=== PATIENT | male | born 1945 | race Caucasian/White ===

== ENCOUNTER → 2018-04-21 12:32 | Outpatient (CLI) | payer MEDICARE, SELFPAY ==
[2018-04-21 13:52] LABS: PSA,Total- Diagnostic 5.04 ng/mL (0.0-4.0)
== END ==
PROVIDERS: Family Provider Internal Medicine; PCP Internal Medicine; Visit Provider Urology
DX: R97.20 Elevated prostate specific antigen [PSA] (principal)
CPT/HCPCS: 36415; 84153

== ENCOUNTER → 2018-07-28 09:36 | Outpatient (CLI) | payer MEDICARE, SELFPAY ==
[2018-07-28 11:26] LABS: PSA,Total- Diagnostic 5.53 ng/mL (0.0-4.0)
== END ==
PROVIDERS: Family Provider Internal Medicine; PCP Internal Medicine; Visit Provider Urology
DX: R97.20 Elevated prostate specific antigen [PSA] (principal)
CPT/HCPCS: 36415; 84153

== ENCOUNTER → 2018-10-25 10:19 | Outpatient (CLI) | payer MEDICARE, SELFPAY ==
[2017-04-26 09:27] VITALS: BMI 27.2
[2018-10-25 11:28] LABS: PSA,Total- Diagnostic 6.73 ng/mL (0.0-4.0)
--- OUTSIDE RECORDS SUMMARY | 2018-12-07 01:27 | XMS RPT_ITS ---
:1945 Author Organization OHIP Care Team Providers Name Role Phone JUANITO WORLEY Referring Unavailable JUANITO WORLEY Attending Unavailable BRUNILDA, JUANITO Silverio Referring Unavailable WORLEYJUANITO HANNON Referring Unavailable JUANITO WORLEY Attending Unavailable BRUNILDA, JUANITO Silverio Referring Unavailable WORLEY, JUANITO Silverio Referring Unavailable WILD DIAL Attending Unavailable JUANITO WORLEY Referring Unavailable ADÁN REDDY Attending Unavailable JUANITO WORLEY Referring Unavailable TerranceErich Attending Unavailable Juanito Worley Primary Care Unavailable TerranceErich Referring Unavailable Terrance, Erich Song Attending Unavailable TerranceErich Referring Unavailable Juanito Worley Primary Care Unavailable Zoraida Montana Attending Unavailable Juanito Worley Primary Care Unavailable Zoraida Montana Referring Unavailable PROBLEMS PROBLEMS DATE TYPE CONDITION / CODE ATTENDING STATUS SOURCE 06/30/2017 Active Unilateral NA Active [facility] primary [place] osteoarthritis, Repository right hip / M16.11(ICD-10) 11/07/2009 Active Hyperlipidemia, NA Active [facility] unspecified / [place] E78.5(ICD-10) Repository 04/22/2018 Unknown R97.20 - Elevated Erich Carlos Active [place] prostate specific [facility] Community antigen [PSA] / Hospital R97.20(ICD-10) Repository 06/30/2017 Active Impaired fasting NA Active [facility] glucose / [facility] [place] R73.01(ICD-10) Repository 12/21/2016 Active Elevated prostate NA Active [facility] specific antigen [facility] (PSA) / Repository R97.20(ICD-10) PROCEDURES PROCEDURES No Procedure Records FoundRESULTS RESULTS PSA,TOTAL- DIAGNOSTIC Collected: 10/25/2018 Status: F Source: [place] 10:24 AM [facility] REPOSITORY TYPE CODE TESTS RESULT OUT OF REFERENCE UNITS RANGE LAB [id number] 0.0-4.0 ng/mL PSA, High DIAGNOSTIC 6.73 Result Comment: This test was performed using the TPSA assay method for the [employer] chemistry system. Values obtained with different assay methods cannot be used interchangably. When changing PSA assays in the course of monitoring a patient, additional sequential testing should be carried out to confirm baseline values. Performed By: #### [id number] #### [facility] [address] [place], [address] PROGRESS Observed: 10/04/2018 Status: COMPLETED Source: [place] 9:34 AM [facility] REPOSITORY HNO ID: [id number] Author: Lexie Cardozo Service: (none) Author Type: Nurse Practitioner Type: Progress Notes Filed: 10/04/2018 10:11 AM Note Text: Subjective The history is provided by the patient. No kiln door repairer was used. HPI Aly Lemons is a 73 year old male who presents today for CC of cough, sore throat, and chest congestion Onset/Duration: One week Alleviating/Treatment: aleve Aggravating: Lying down Risk factors: Family BP 140/80 Pulse 73 Temp 36.8 ?C (98.2 ?F) (Tympanic) Resp 14 Wt 86 kg (189 lb 9.6 oz) SpO2 98% BMI 27.33 kg/m? ALLERGIES No Known Allergies ACTIVE PROBLEM LIST Hyperlipidemia Actinic Keratoses Bph With Urinary Obstruction Bcc (Basal Cell Carcinoma of Skin) Elevated Prostate Specific Antigen (Psa) Impaired Fasting Blood Sugar Nocturnal Leg Cramps Primary Osteoarthritis of Right Hip Essential Hypertension Left Inguinal Hernia Family History Problem Relation Age of Onset - Cancer Father throat - Breast Cancer Mother - Stroke Maternal Grandmother - Colon Cancer No Family History - Prostate Cancer No Family History - other (pulmonary fibrosis [Other]) Mother Smoker - Diabetes Mother - Stroke Paternal Grandmother Social History Marital status: Spouse name: Years of education: Number of children: 0 Occupational History 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 PAST MEDICAL HISTORY Diagnosis Date - Actinic keratoses 11/07/2009 Mohs' surgery left temporal 2008 Nose prior to that - BCC (basal cell carcinoma of skin) 10/24/2012 [facility]. - Bladder cancer (HCC) - BPH with urinary obstruction 11/07/2009 - Essential hypertension 10/20/2017 - Headache(784.0) - Hemorrhoid - Hyperlipidemia 11/07/2009 Review of Systems Constitutional: Negative. Negative for chills, fever and malaise/fatigue. HENT: Positive for congestion and sore throat. Negative for ear pain and sinus pain. Respiratory: Positive for cough and wheezing. Negative for sputum production and shortness of breath. Cardiovascular: Negative for chest pain. Musculoskeletal: Negative for myalgias. Skin: Negative for rash. Neurological: Negative for headaches. Objective Physical Exam Constitutional: He is well-developed, well-nourished, and in no distress. HENT: Head: Normocephalic and atraumatic. Right Ear: Tympanic membrane, external ear and ear canal normal. Tympanic membrane is not injected, not erythematous, not retracted and not bulging. No middle ear effusion. Left Ear: Tympanic membrane, external ear and ear canal normal. Tympanic membrane is not injected, not erythematous, not retracted and not bulging. No middle ear effusion. Nose: Mucosal edema and rhinorrhea present. Right sinus exhibits no maxillary sinus tenderness and no frontal sinus tenderness. Left sinus exhibits no maxillary sinus tenderness and no frontal sinus tenderness. Mouth/Throat: Uvula is midline and mucous membranes are normal. Posterior oropharyngeal erythema (mild streaking, thick post nasal drainage) present. No oropharyngeal exudate, posterior oropharyngeal edema or tonsillar abscesses. Eyes: Pupils are equal, round, and reactive to light. Conjunctivae and EOM are normal. Neck: Normal range of motion. Cardiovascular: Normal rate, regular rhythm and normal heart sounds. Pulmonary/Chest: Effort normal. No respiratory distress. He has no decreased breath sounds. He has wheezes (scattered occasional). He has no rhonchi. He has no rales. A dry cough was noted during this encounter. Talking in full sentences. Handling secretions without drooling. Lips and nailbeds are pink without cyanosis. Lymphadenopathy: Head (right side): No submental, no submandibular, no tonsillar, no preauricular and no posterior auricular adenopathy present. Head (left side): No submental, no submandibular, no tonsillar, no preauricular and no posterior auricular adenopathy present. He has no cervical adenopathy. Right cervical: No posterior cervical adenopathy present. Left cervical: No posterior cervical adenopathy present. Right: No supraclavicular adenopathy present. Left: No supraclavicular adenopathy present. Skin: Skin is warm and dry. Psychiatric: Affect normal. Nursing note and vitals reviewed. ASSESSMENT/PLAN: 1. URI with cough and congestion - ICD9: 465.9, ICD10: J06.9 - Discussed viral etiology and rationale for treatment. Rest, oral fluids, tylenol or aleve as needed for pain or fever Tessalon Perles as prescribed for coughing, do not combine this with other cough and cold medications Prednisone for airway congestion/wheezing/coughing Salt water gargles, chloraseptic spray or lozenges as needed for sore throat. Drink at least 8 glasses of fluids per day that aren't caffeinated. Use a humidifier in your room at night Tylenol (generic acetaminophen) 500 mg-2 tabs every 8 hrs. as needed for fever and aches -Sudafed (generic is fine), behind the counter, 2x30 mg tabs twice daily as needed for congestion -Mucinex (generic is fine) 1200 mg twice daily to help with cough and to thin out mucus -http://www.choosingwisely.org/patient-resources/antibiotics/. This link shares information about when antibiotics may help and when they may not. - Discussed use of Prednisone 5 day course as needed for cough, wheeze, shortness of breath * Prednisone 40 mg (2 tablets) per day for 5 days, take in morning or early in day * Do not NSAIDs during this 5 day course (ibuprofen, naproxen, Motrin, Aleve, Advil) Tylenol only during prednisone use * Follow up with primary care provider if no improvement with treatmen * Seek medical care immediately, call 911, go to ER if you have chest pain, difficulty breathing, shortness of breath, inability to swallow. - PREDNISONE 20 MG TABLET - BENZONATATE 200 MG CAPSULE - GUAIFENESIN ER 600 MG TABLET, EXTENDED RELEASE 12 HR Diagnosis and treatment plan were discussed and questions were answered to the patient's satisfaction. Pt acknowledged understanding of concepts and follow up plan. Specific signs and symptoms that would indicate the need for higher level of care were discussed in detail warranting prompt ER evaluation. Lexie Cardozo APRN.CNP CNOV Observed: 10/04/2018 Status: COMPLETED Source: [place] 9:30 AM [facility] REPOSITORY Office Visit ([facility]) VESTAALY CESAR ([id number]) 1945 M Date Time Provider Department 10/04/18 9:30 AM [facility] During your visit today, we recorded the following information about you: Temperature Pulse Respiration Blood pressure 98.2 degrees 73/minute 14/minute 140/80 Weight 86 kg Lexie Cardozo APRN.CNP 10/04/2018 10:11 AM Signed Subjective The history is provided by the patient. No kiln door repairer was used. HPI Aly Lemons is a 73 year old male who presents today for CC of cough, sore throat, and chest congestion Onset/Duration: One week Alleviating/Treatment: aleve Aggravating: Lying down Risk factors: Family BP 140/80 Pulse 73 Temp 36.8 ?C (98.2 ?F) (Tympanic) Resp 14 Wt 86 kg (189 lb 9.6 oz) SpO2 98% BMI 27.33 kg/m? ALLERGIES No Known Allergies ACTIVE PROBLEM LIST Hyperlipidemia Actinic Keratoses Bph With Urinary Obstruction Bcc (Basal Cell Carcinoma of Skin) Elevated Prostate Specific Antigen (Psa) Impaired Fasting Blood Sugar Nocturnal Leg Cramps Primary Osteoarthritis of Right Hip Essential Hypertension Left Inguinal Hernia Family History Problem Relation Age of Onset - Cancer Father throat - Breast Cancer Mother - Stroke Maternal Grandmother - Colon Cancer No Family History - Prostate Cancer No Family History - other (pulmonary fibrosis [Other]) Mother Smoker - Diabetes Mother - Stroke Paternal Grandmother Social History Marital status: Spouse name: Years of education: Number of children: 0 Occupational History 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 PAST MEDICAL HISTORY Diagnosis Date - Actinic keratoses 11/07/2009 Mohs' surgery left temporal 2009 Nose prior to that - BCC (basal cell carcinoma of skin) 10/24/2012 [facility]. - Bladder cancer (HCC) - BPH with urinary obstruction 11/07/2009 - Essential hypertension 10/20/2017 - Headache(784.0) - Hemorrhoid - Hyperlipidemia 11/07/2009 Review of Systems Constitutional: Negative. Negative for chills, fever and malaise/fatigue. HENT: Positive for congestion and sore throat. Negative for ear pain and sinus pain. Respiratory: Positive for cough and wheezing. Negative for sputum production and shortness of breath. Cardiovascular: Negative for chest pain. Musculoskeletal: Negative for myalgias. Skin: Negative for rash. Neurological: Negative for headaches. Objective Physical Exam Constitutional: He is well-developed, well-nourished, and in no distress. HENT: Head: Normocephalic and atraumatic. Right Ear: Tympanic membrane, external ear and ear canal normal. Tympanic membrane is not injected, not erythematous, not retracted and not bulging. No middle ear effusion. Left Ear: Tympanic membrane, external ear and ear canal normal. Tympanic membrane is not injected, not erythematous, not retracted and not bulging. No middle ear effusion. Nose: Mucosal edema and rhinorrhea present. Right sinus exhibits no maxillary sinus tenderness and no frontal sinus tenderness. Left sinus exhibits no maxillary sinus tenderness and no frontal sinus tenderness. Mouth/Throat: Uvula is midline and mucous membranes are normal. Posterior oropharyngeal erythema (mild streaking, thick post nasal drainage) present. No oropharyngeal exudate, posterior oropharyngeal edema or tonsillar abscesses. Eyes: Pupils are equal, round, and reactive to light. Conjunctivae and EOM are normal. Neck: Normal range of motion. Cardiovascular: Normal rate, regular rhythm and normal heart sounds. Pulmonary/Chest: Effort normal. No respiratory distress. He has no decreased breath sounds. He has wheezes (scattered occasional). He has no rhonchi. He has no rales. A dry cough was noted during this encounter. Talking in full sentences. Handling secretions without drooling. Lips and nailbeds are pink without cyanosis. Lymphadenopathy: Head (right side): No submental, no submandibular, no tonsillar, no preauricular and no posterior auricular adenopathy present. Head (left side): No submental, no submandibular, no tonsillar, no preauricular and no posterior auricular adenopathy present. He has no cervical adenopathy. Right cervical: No posterior cervical adenopathy present. Left cervical: No posterior cervical adenopathy present. Right: No supraclavicular adenopathy present. Left: No supraclavicular adenopathy present. Skin: Skin is warm and dry. Psychiatric: Affect normal. Nursing note and vitals reviewed. ASSESSMENT/PLAN: 1. URI with cough and congestion - ICD9: 465.9, ICD10: J06.9 - Discussed viral etiology and rationale for treatment. Rest, oral fluids, tylenol or aleve as needed for pain or fever Milenaon Perlmonica as prescribed for coughing, do not combine this with other cough and cold medications Prednisone for airway congestion/wheezing/coughing Salt water gargles, chloraseptic spray or lozenges as needed for sore throat. Drink at least 8 glasses of fluids per day that aren't caffeinated. Use a humidifier in your room at night Tylenol (generic acetaminophen) 500 mg-2 tabs every 8 hrs. as needed for fever and aches -Sudafed (generic is fine), behind the counter, 2x30 mg tabs twice daily as needed for congestion -Mucinex (generic is fine) 1200 mg twice daily to help with cough and to thin out mucus -http://www.Movinaryly.org/patient-resources/antibiotics/. This link shares information about when antibiotics may help and when they may not. - Discussed use of Prednisone 5 day course as needed for cough, wheeze, shortness of breath * Prednisone 40 mg (2 tablets) per day for 5 days, take in morning or early in day * Do not NSAIDs during this 5 day course (ibuprofen, naproxen, Motrin, Aleve, Advil) Tylenol only during prednisone use * Follow up with primary care provider if no improvement with treatmen * Seek medical care immediately, call 911, go to ER if you have chest pain, difficulty breathing, shortness of breath, inability to swallow. - PREDNISONE 20 MG TABLET - BENZONATATE 200 MG CAPSULE - GUAIFENESIN ER 600 MG TABLET, EXTENDED RELEASE 12 HR Diagnosis and treatment plan were discussed and questions were answered to the patient's satisfaction. Pt acknowledged understanding of concepts and follow up plan. Specific signs and symptoms that would indicate the need for higher level of care were discussed in detail warranting prompt ER evaluation. KELSI Mandujano APRN.CNP 10/04/2018 9:48 AM Signed ASSESSMENT/PLAN: 1. URI with cough and congestion - ICD9: 465.9, ICD10: J06.9 - Discussed viral etiology and rationale for treatment. Rest, oral fluids, tylenol or aleve as needed for pain or fever Tessalon Perles as prescribed for coughing, do not combine this with other cough and cold medications Prednisone for airway congestion/wheezing/coughing Salt water gargles, chloraseptic spray or lozenges as needed for sore throat. Drink at least 8 glasses of fluids per day that aren't caffeinated. Use a humidifier in your room at night Tylenol (generic acetaminophen) 500 mg-2 tabs every 8 hrs. as needed for fever and aches -Sudafed (generic is fine), behind the counter, 2x30 mg tabs twice daily as needed for congestion -Mucinex (generic is fine) 1200 mg twice daily to help with cough and to thin out mucus -http://www.Mov[employer].org/patient-resources/antibiotics/. This link shares information about when antibiotics may help and when they may not. - Discussed use of Prednisone 5 day course as needed for cough, wheeze, shortness of breath * Prednisone 40 mg (2 tablets) per day for 5 days, take in morning or early in day * Do not NSAIDs during this 5 day course (ibuprofen, naproxen, Motrin, Aleve, Advil) Tylenol only during prednisone use * Follow up with primary care provider if no improvement with treatmen * Seek medical care immediately, call 911, go to ER if you have chest pain, difficulty breathing, shortness of breath, inability to swallow. - PREDNISONE 20 MG TABLET - BENZONATATE 200 MG CAPSULE - GUAIFENESIN ER 600 MG TABLET, EXTENDED RELEASE 12 HR Referring Provider: SELF [200] Allergies As of Date: 10/04/2018 (No Known Allergies) Date Reviewed: 10/04/2018 Reviewed by: Lexie ([facility]) Cas - Fully Assessed Reason for Visit: Cough [28] Cmt: x1 wk Chest Congestion [236] Cmt: x1 wk Sore Throat [200] Cmt: x1 wk; getting a little better Primary Visit Diagnosis:URI with cough and congestion [J06.9] Order(s):predniSONE (DELTASONE) 20 mg tabletTake 2 tablets by mouth once daily for 3 days.Disp: 6 tabletRfl: 0 Benzonatate 200 mg capsuleTake 1 capsule by mouth three times daily as needed.Disp: 30 capsuleRfl: 0 guaiFENesin (MUCINEX) 600 mg 12 hr tabletTake 2 tablets by mouth twice daily.Disp: 24 tabletRfl: 0 Prescriptions as of 10/04/2018 Sig: LOW-DOSE ASPIRIN ORAL Take 1 tablet by mouth once d* ATORVASTATIN 40 MG TABLET Take 1 tablet by mouth daily * AMLODIPINE 5 MG TABLET Take 1 tablet by mouth once d* NAPROXEN SODIUM 220 MG CAPSULE Take by mouth. PREDNISONE 20 MG TABLET Take 2 tablets by mouth once * BENZONATATE 200 MG CAPSULE Take 1 capsule by mouth three* GUAIFENESIN ER 600 MG TABLET,* Take 2 tablets by mouth twice* More... Problem List As Of Date 10/04/2018 Noted Resolved Hyperlipidemia [E78.5] INVALID FOR* More... Actinic keratoses [L57.0] INVALID FOR* BPH with Urinary Obstruction [N40.1, N13.8] INVALID FOR* More... BCC (basal cell carcinoma of skin) [C44.91] INVALID FOR* More... Headache(784.0) [R51] INVALID FOR*12/28/2016 More... Aortic atherosclerosis (HCC) [I70.0] 12/26/2015 More... Elevated prostate specific antigen (PSA) [R97.2*INVALID FOR* Impaired fasting blood sugar [R73.01] INVALID FOR* Nocturnal leg cramps [G47.62] INVALID FOR* Dizziness [R42] INVALID FOR*01/03/2018 Primary osteoarthritis of right hip [M16.11] INVALID FOR* Essential hypertension [I10] INVALID FOR* Left inguinal hernia [K40.90] INVALID FOR* Other instructions from your clinician: ASSESSMENT/PLAN: 1. URI with cough and congestion - ICD9: 465.9, ICD10: J06.9 - Discussed viral etiology and rationale for treatment. Rest, oral fluids, tylenol or aleve as needed for pain or fever Tessalon Perles as prescribed for coughing, do not combine this with other cough and cold medications Prednisone for airway congestion/wheezing/coughing Salt water gargles, chloraseptic spray or lozenges as needed for sore throat. Drink at least 8 glasses of fluids per day that aren't caffeinated. Use a humidifier in your room at night Tylenol (generic acetaminophen) 500 mg-2 tabs every 8 hrs. as needed for fever and aches -Sudafed (generic is fine), behind the counter, 2x30 mg tabs twice daily as needed for congestion -Mucinex (generic is fine) 1200 mg twice daily to help with cough and to thin out mucus -http://www.choosingwisely.org/patient-resources/antibiotics/. This link shares information about when antibiotics may help and when they may not. - Discussed use of Prednisone 5 day course as needed for cough, wheeze, shortness of breath * Prednisone 40 mg (2 tablets) per day for 5 days, take in morning or early in day * Do not NSAIDs during this 5 day course (ibuprofen, naproxen, Motrin, Aleve, Advil) Tylenol only during prednisone use * Follow up with primary care provider if no improvement with treatmen * Seek medical care immediately, call 911, go to ER if you have chest pain, difficulty breathing, shortness of breath, inability to swallow. - PREDNISONE 20 MG TABLET - BENZONATATE 200 MG CAPSULE - GUAIFENESIN ER 600 MG TABLET, EXTENDED RELEASE 12 HR Prescriptions ordered this encounter Disp Refills Start End PREDNISONE 20 MG TABLET 6 ta* 0 10/04/2018 10/07/2018 Route: ORAL Sig: Take 2 tablets by mouth once daily for 3 days. BENZONATATE 200 MG CAPSULE 30 c* 0 10/04/2018 Route: ORAL Sig: Take 1 capsule by mouth three times daily as needed. GUAIFENESIN ER 600 MG TABLET, EXTEND* 24 t* 0 10/04/2018 Route: ORAL Sig: Take 2 tablets by mouth twice daily. Encounter Status:Closed by LEXIE CARDOZO CNP on 10/04/18 PROGRESS Observed: 07/31/2018 Status: COMPLETED Source: [place] 10:07 AM [facility] REPOSITORY HNO ID: [id number] Author: Adán Reddy Service: (none) Author Type: Physician Type: Progress Notes Filed: 07/31/2018 10:16 AM Note Text: HISTORY AND PHYSICAL Aly Lemons 1945 REFERRING PHYSICIAN: Juanito Worley MD CHIEF COMPLAINT: Inguinal Hernia Repair-2 HPI: Aly is a 73 year old male with a complaint of a bulge and discomfort in his right inguinal region. The patient notes discomfort in this area with lifting, straining and coughing. The symptoms have increased, over the past few months. The patient notes no symptoms of bowel obstruction and denies nausea or vomiting. The patient was seen by his primary care physician who felt the patient has a hernia. Aly was referred for evaluation and treatment. The patient underwent cystectomy with creation of urostomy secondary to an aggressive bladder cancer approximately 8 months previously. I performed a previous bilateral laparoscopic inguinal hernia repair on April 13, 2005 for bilateral inguinal hernias at that time. The patient is concerned about the possibility of an inguinal hernia repair given the proximity to his right lower quadrant ileostomy The patient is being seen by me today at the request of Dr. Juanito Worley MD for my opinion and advice regarding recurring right inguinal hernia, status post radical cystectomy. PAST MEDICAL HISTORY Diagnosis Date - Actinic keratoses 11/07/2009 Mohs' surgery left temporal 2009 Nose prior to that - BCC (basal cell carcinoma of skin) 10/24/2012 [facility]. - Bladder cancer (HCC) - BPH with urinary obstruction 11/07/2009 - Essential hypertension 10/20/2017 - Headache(784.0) - Hemorrhoid - Hyperlipidemia 11/07/2009 PAST SURGICAL HISTORY Procedure Laterality Date - COLONOSCOP W/ OR W/O BRSH SPEC 02/21/15 few diverticula, otherwise normal - COLONOSCOPY 12/21/03 - LX CYSTECTOMY,CONDUIT, BPLND - MOHS, 1 STAGE, HEAD/NECK/HAND/FEET/GENTIAL 2011 RT NECK - MOHS, 1 STAGE, HEAD/NECK/HAND/FEET/GENTIAL 2011 UPPER LIP - PAST SURGICAL HISTORY OF various actinic keratoses, nose and left scalp, BCC Followed by DERM - REPAIR INGUINAL HERNIA Bilateral 2005 bilateral inguinal hernias with mesh, Dr. Reddy Current Outpatient Prescriptions: LOW-DOSE ASPIRIN ORAL Take 1 tablet by mouth once daily. atorvastatin (LIPITOR) 40 mg tablet Take 1 tablet by mouth daily at bedtime. For cholesterol. amLODIPine (NORVASC) 5 mg tablet Take 1 tablet by mouth once daily. naproxen sodium (ALEVE) 220 mg cap Take by mouth. No current facility-administered medications for this visit. ALLERGIES: Patient has no known allergies. 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 [employer] FAMILY HISTORY: FAMILY HISTORY Problem Relation Age of Onset - Cancer Father throat - Breast Cancer Mother - Stroke Maternal Grandmother - Colon Cancer No Family History - Prostate Cancer No Family History - other (pulmonary fibrosis [Other]) Mother Smoker - Diabetes Mother - Stroke Paternal Grandmother REVIEW OF SYMPTOMS: The review of systems data was entered by the nurse and reviewed by tx Nursing Notes: Kyra De La Garza LPN 07/28/2018 8:09 AM Signed REVIEW OF SYSTEMS: General: The patient denies fatigue, denies weight loss, denies weight gain, denies feeling hot, and denies feelings of cold. Eyes: The patient denies glaucoma, denies eye injury/surgery, wears glasses or contacts. Ear/Nose/Throat: The patient denies allergies, denies hayfever, denies ear infections, and denies bloody noses. Cardiovascular: The patient denies chest pain, denies heart disease, NOTES high blood pressure,denies cardiac stent, denies prior heart attack, denies irregular heart beat, NOTES high cholesterol, denies poor circulation, denies heart failure, other cardiac issues, denies claudication, denies cold feet, denies peripheral arterial stent. Respiratory: The patient denies tuberculosis, denies pneumonia, denies frequent cough, denies pulmonary embolism, denies shortness of breath, and denies coughing up blood. Gastrointestinal: The patient denies difficulty swallowing, denies acid reflux, denies ulcers, denies vomiting, denies jaundice/hepatitis, denies gallbladder problems, denies black or tarry stools, denies hemorrhoids, denies bleeding from rectum, denies diverticulitis, denies constipation, denies diarrhea, denies loss of stool control, and NOTES hernias. Kidney/Bladder: The patient denies kidney stones, denies urine infections, and denies bloody urine. Skin: The patient NOTES a history of skin cancer, denies bleeding/changing moles, and denies a history of skin rash. Neurologic: The patient denies a history of epilepsy/convulsions, denies headaches, denies head/spinal injuries, and denies stroke/TIA. Psychiatric: The patient denies psychiatric medications, denies depression, and denies voices, denies substance abuse. Endocrine: The patient denies thyroid disorders, denies diabetes, and denies hormonal problems. Hematologic: The patient denies a history of bruising, denies bleeding, and denies anemia, denies blood clots. Infections: The patient NOTES a history of measles and mumps, denies rheumatic fever, and denies sexually transmitted diseases. Musculoskeletal: The patient denies back pain/injury, denies back problems, denies sciatica, denies knee/foot trouble, NOTES arthritis, or denies gout. When was patient's last Mammogram screening? N/A Last Colonoscopy: 01/2015 Kyra De La Garza LPN PHYSICAL EXAMINATION: General: The patient is 73 year old male, well nourished, well hydrated in no acute distress. The patient is oriented to time, place, and person. VITALS: Blood pressure 130/66, pulse 74, weight 82.6 kg (182 lb). Body mass index is 26.23 kg/m?. HEENT: Normal cephalic, ataumatic, pupils are equally round, sclera are anicteric, mucous membranes are moist, oropharynx is clear. Neck has no masses, asymmetry or lymphadenopathy. Thyroid is unremarkable. Respiratory: Clear to auscultation and percussion. Normal respiratory excursion and pattern. Cardiac: Examination is regular rate and rhythm. Abdominal exam: Soft, nontender, with no palpable masses. No hepatosplenomegaly. Right lower quadrant urostomy is present A small, reducible right inguinal hernia, no left inguinal or umbilical hernias are noted Rectal exam: exam deferred Extremities: no clubbing, cyanosis or edema. No adenopathy. Other: LABORATORY VALUES: As Noted RADIOLOGIC STUDIES: As Noted Assessment IMPRESSION: right inguinal hernia - recurrent PLAN: My plan is to perform a open right inguinal hernia repair with mesh. The planned surgical procedure was discussed extensively with the patient. The risks, benefits, anticipated outcomes and possible complications were mentioned. Aly velásquezands that all hernia repair surgery has a chance of recurrence and/or chronic post operative pain. My staff has also explained the procedure in understandable terms and the patient was given the option to take printed material concerning the planned procedure. The patient had the opportunity to ask questions concerning the planned procedure. The patient freely consents to the planned procedure. My findings have been communicated to Dr. Juanito Worley MD via shared medical record. This note will be forwarded to Dr. Juanito Worley MD. Diagnoses: (K40.90) Right inguinal hernia (primary encounter diagnosis) Anticipated CPT Code: open right inguinal hernia repair with mesh - 16915-570 Anticipated Anesthetic: MAC with local Patient weight: Blood pressure 130/66, pulse 74, weight 82.6 kg (182 lb). BMI: Body mass index is 26.23 kg/m?. Planned antibiotic: Ancef 2gm IVPB diamond cutter to OR SCDs needed - Yes Return to Clinic: The patient is instructed to follow-up with me when he decides he would like to have this hernia repaired. Adán Reddy MD PSA,TOTAL- DIAGNOSTIC Collected: 07/28/2018 Status: F Source: [place] 9:45 AM [facility] REPOSITORY TYPE CODE TESTS RESULT OUT OF REFERENCE UNITS RANGE LAB L501.9940 0.0-4.0 ng/mL PSA, High DIAGNOSTIC 5.53 Result Comment: This test was performed using the TPSA assay method for the [employer] chemistry system. Values obtained with different assay methods cannot be used interchangably. When changing PSA assays in the course of monitoring a patient, additional sequential testing should be carried out to confirm baseline values. Performed By: #### [id number] #### [facility] [address] [place], [address] CNOV Observed: 07/28/2018 Status: COMPLETED Source: [place] 7:40 AM [facility] REPOSITORY Office Visit (GENSWS) ALY LEMONS ([id number]) 1945 M Date Time Provider Department 07/28/18 7:40 AM ADÁN REDDY GENNADERS During your visit today, we recorded the following information about you: Pulse Blood pressure Weight 74/minute 130/66 82.6 kg Kyra De La Garza HALLEY 07/28/2018 8:09 AM Signed REVIEW OF SYSTEMS: General: The patient denies fatigue, denies weight loss, denies weight gain, denies feeling hot, and denies feelings of cold. Eyes: The patient denies glaucoma, denies eye injury/surgery, wears glasses or contacts. Ear/Nose/Throat: The patient denies allergies, denies hayfever, denies ear infections, and denies bloody noses. Cardiovascular: The patient denies chest pain, denies heart disease, NOTES high blood pressure,denies cardiac stent, denies prior heart attack, denies irregular heart beat, NOTES high cholesterol, denies poor circulation, denies heart failure, other cardiac issues, denies claudication, denies cold feet, denies peripheral arterial stent. Respiratory: The patient denies tuberculosis, denies pneumonia, denies frequent cough, denies pulmonary embolism, denies shortness of breath, and denies coughing up blood. Gastrointestinal: The patient denies difficulty swallowing, denies acid reflux, denies ulcers, denies vomiting, denies jaundice/hepatitis, denies gallbladder problems, denies black or tarry stools, denies hemorrhoids, denies bleeding from rectum, denies diverticulitis, denies constipation, denies diarrhea, denies loss of stool control, and NOTES hernias. Kidney/Bladder: The patient denies kidney stones, denies urine infections, and denies bloody urine. Skin: The patient NOTES a history of skin cancer, denies bleeding/changing moles, and denies a history of skin rash. Neurologic: The patient denies a history of epilepsy/convulsions, denies headaches, denies head/spinal injuries, and denies stroke/TIA. Psychiatric: The patient denies psychiatric medications, denies depression, and denies voices, denies substance abuse. Endocrine: The patient denies thyroid disorders, denies diabetes, and denies hormonal problems. Hematologic: The patient denies a history of bruising, denies bleeding, and denies anemia, denies blood clots. Infections: The patient NOTES a history of measles and mumps, denies rheumatic fever, and denies sexually transmitted diseases. Musculoskeletal: The patient denies back pain/injury, denies back problems, denies sciatica, denies knee/foot trouble, NOTES arthritis, or denies gout. When was patient's last Mammogram screening? N/A Last Colonoscopy: 01/2015 Kyra Reddy MD 07/31/2018 10:16 AM Signed HISTORY AND PHYSICAL Aly Lemons 1945 REFERRING PHYSICIAN: Juanito Worley MD CHIEF COMPLAINT: Inguinal Hernia Repair-2 HPI: Aly is a 73 year old male with a complaint of a bulge and discomfort in his right inguinal region. The patient notes discomfort in this area with lifting, straining and coughing. The symptoms have increased, over the past few months. The patient notes no symptoms of bowel obstruction and denies nausea or vomiting. The patient was seen by his primary care physician who felt the patient has a hernia. Aly was referred for evaluation and treatment. The patient underwent cystectomy with creation of urostomy secondary to an aggressive bladder cancer approximately 8 months previously. I performed a previous bilateral laparoscopic inguinal hernia repair on April 13, 2005 for bilateral inguinal hernias at that time. The patient is concerned about the possibility of an inguinal hernia repair given the proximity to his right lower quadrant ileostomy The patient is being seen by me today at the request of Dr. Juanito Worley MD for my opinion and advice regarding recurring right inguinal hernia, status post radical cystectomy. PAST MEDICAL HISTORY Diagnosis Date - Actinic keratoses 11/07/2009 Mohs' surgery left temporal 2008 Nose prior to that - BCC (basal cell carcinoma of skin) 10/24/2012 [facility]. - Bladder cancer (HCC) - BPH with urinary obstruction 11/07/2009 - Essential hypertension 10/20/2017 - Headache(784.0) - Hemorrhoid - Hyperlipidemia 11/07/2009 PAST SURGICAL HISTORY Procedure Laterality Date - [facility]21[facility]15 few diverticula, otherwise normal - COLONOSCOPY 12/21/03 - LX CYSTECTOMY,CONDUIT, BPLND - MOHS, 1 STAGE, HEAD/NECK/HAND/FEET/GENTIAL 2011 RT NECK - MOHS, 1 STAGE, HEAD/NECK/HAND/FEET/GENTIAL 2011 UPPER LIP - PAST SURGICAL HISTORY OF various actinic keratoses, nose and left scalp, BCC Followed by DERM - REPAIR INGUINAL HERNIA Bilateral 2005 bilateral inguinal hernias with mesh, Dr. Reddy Current Outpatient Prescriptions: LOW-DOSE ASPIRIN ORAL Take 1 tablet by mouth once daily. atorvastatin (LIPITOR) 40 mg tablet Take 1 tablet by mouth daily at bedtime. For cholesterol. amLODIPine (NORVASC) 5 mg tablet Take 1 tablet by mouth once daily. naproxen sodium (ALEVE) 220 mg cap Take by mouth. No current facility-administered medications for this visit. ALLERGIES: Patient has no known allergies. 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 FAMILY HISTORY: FAMILY HISTORY Problem Relation Age of Onset - Cancer Father throat - Breast Cancer Mother - Stroke Maternal Grandmother - Colon Cancer No Family History - Prostate Cancer No Family History - other (pulmonary fibrosis [Other]) Mother Smoker - Diabetes Mother - Stroke Paternal Grandmother REVIEW OF SYMPTOMS: The review of systems data was entered by the nurse and reviewed by tx Nursing Notes: Kyra De La Garza LPN 07/28/2018 8:09 AM Signed REVIEW OF SYSTEMS: General: The patient denies fatigue, denies weight loss, denies weight gain, denies feeling hot, and denies feelings of cold. Eyes: The patient denies glaucoma, denies eye injury/surgery, wears glasses or contacts. Ear/Nose/Throat: The patient denies allergies, denies hayfever, denies ear infections, and denies bloody noses. Cardiovascular: The patient denies chest pain, denies heart disease, NOTES high blood pressure,denies cardiac stent, denies prior heart attack, denies irregular heart beat, NOTES high cholesterol, denies poor circulation, denies heart failure, other cardiac issues, denies claudication, denies cold feet, denies peripheral arterial stent. Respiratory: The patient denies tuberculosis, denies pneumonia, denies frequent cough, denies pulmonary embolism, denies shortness of breath, and denies coughing up blood. Gastrointestinal: The patient denies difficulty swallowing, denies acid reflux, denies ulcers, denies vomiting, denies jaundice/hepatitis, denies gallbladder problems, denies black or tarry stools, denies hemorrhoids, denies bleeding from rectum, denies diverticulitis, denies constipation, denies diarrhea, denies loss of stool control, and NOTES hernias. Kidney/Bladder: The patient denies kidney stones, denies urine infections, and denies bloody urine. Skin: The patient NOTES a history of skin cancer, denies bleeding/changing moles, and denies a history of skin rash. Neurologic: The patient denies a history of epilepsy/convulsions, denies headaches, denies head/spinal injuries, and denies stroke/TIA. Psychiatric: The patient denies psychiatric medications, denies depression, and denies voices, denies substance abuse. Endocrine: The patient denies thyroid disorders, denies diabetes, and denies hormonal problems. Hematologic: The patient denies a history of bruising, denies bleeding, and denies anemia, denies blood clots. Infections: The patient NOTES a history of measles and mumps, denies rheumatic fever, and denies sexually transmitted diseases. Musculoskeletal: The patient denies back pain/injury, denies back problems, denies sciatica, denies knee/foot trouble, NOTES arthritis, or denies gout. When was patient's last Mammogram screening? N/A Last Colonoscopy: 01/2015 Kyra De La Garza LPN PHYSICAL EXAMINATION: General: The patient is 73 year old male, well nourished, well hydrated in no acute distress. The patient is oriented to time, place, and person. VITALS: Blood pressure 130/66, pulse 74, weight 82.6 kg (182 lb). Body mass index is 26.23 kg/m?. HEENT: Normal cephalic, ataumatic, pupils are equally round, sclera are anicteric, mucous membranes are moist, oropharynx is clear. Neck has no masses, asymmetry or lymphadenopathy. Thyroid is unremarkable. Respiratory: Clear to auscultation and percussion. Normal respiratory excursion and pattern. Cardiac: Examination is regular rate and rhythm. Abdominal exam: Soft, nontender, with no palpable masses. No hepatosplenomegaly. Right lower quadrant urostomy is present A small, reducible right inguinal hernia, no left inguinal or umbilical hernias are noted Rectal exam: exam deferred Extremities: no clubbing, cyanosis or edema. No adenopathy. Other: LABORATORY VALUES: As Noted RADIOLOGIC STUDIES: As Noted Assessment IMPRESSION: right inguinal hernia - recurrent PLAN: My plan is to perform a open right inguinal hernia repair with mesh. The planned surgical procedure was discussed extensively with the patient. The risks, benefits, anticipated outcomes and possible complications were mentioned. Aly velásquezands that all hernia repair surgery has a chance of recurrence and/or chronic post operative pain. My staff has also explained the procedure in understandable terms and the patient was given the option to take printed material concerning the planned procedure. The patient had the opportunity to ask questions concerning the planned procedure. The patient freely consents to the planned procedure. My findings have been communicated to Dr. Juanito Worley MD via shared medical record. This note will be forwarded to Dr. Juanito Worley MD. Diagnoses: (K40.90) Right inguinal hernia (primary encounter diagnosis) Anticipated CPT Code: open right inguinal hernia repair with mesh - 59487-212 Anticipated Anesthetic: MAC with local Patient weight: Blood pressure 130/66, pulse 74, weight 82.6 kg (182 lb). BMI: Body mass index is 26.23 kg/m?. Planned antibiotic: Ancef 2gm IVPB diamond cutter to OR SCDs needed - Yes Return to Clinic: The patient is instructed to follow-up with me when he decides he would like to have this hernia repaired. Adán Reddy MD Referring Provider: JUANITO WORLEY [[id number]] Allergies As of Date: 07/28/2018 (No Known Allergies) Date Reviewed: 07/28/2018 Reviewed by: Adán Reddy - Fully Assessed Reason for Visit: Inguinal Hernia Repair-2 [312] Primary Visit Diagnosis:Right inguinal hernia [K40.90] Prescriptions as of 07/28/2018 Sig: LOW-DOSE ASPIRIN ORAL Take 1 tablet by mouth once d* ATORVASTATIN 40 MG TABLET Take 1 tablet by mouth daily * AMLODIPINE 5 MG TABLET Take 1 tablet by mouth once d* NAPROXEN SODIUM 220 MG CAPSULE Take by mouth. More... Problem List As Of Date 07/28/2018 Noted Resolved Hyperlipidemia [E78.5] INVALID FOR* More... Actinic keratoses [L57.0] INVALID FOR* BPH with Urinary Obstruction [N40.1, N13.8] INVALID FOR* More... BCC (basal cell carcinoma of skin) [C44.91] INVALID FOR* More... Headache(784.0) [R51] INVALID FOR*12/28/2016 More... Aortic atherosclerosis (HCC) [I70.0] 12/26/2015 More... Elevated prostate specific antigen (PSA) [R97.2*INVALID FOR* Impaired fasting blood sugar [R73.01] INVALID FOR* Nocturnal leg cramps [G47.62] INVALID FOR* Dizziness [R42] INVALID FOR*01/03/2018 Primary osteoarthritis of right hip [M16.11] INVALID FOR* Essential hypertension [I10] INVALID FOR* Left inguinal hernia [K40.90] INVALID FOR* Visit Notes: >> Kyra De La Garza LPN Karlee Jul 28, 2018 8:08 AM Status: Signed REVIEW OF SYSTEMS: General: The patient denies fatigue, denies weight loss, denies weight gain, denies feeling hot, and denies feelings of cold. Eyes: The patient denies glaucoma, denies eye injury/surgery, wears glasses or contacts. Ear/Nose/Throat: The patient denies allergies, denies hayfever, denies ear infections, and denies bloody noses. Cardiovascular: The patient denies chest pain, denies heart disease, NOTES high blood pressure,denies cardiac stent, denies prior heart attack, denies irregular heart beat, NOTES high cholesterol, denies poor circulation, denies heart failure, other cardiac issues, denies claudication, denies cold feet, denies peripheral arterial stent. Respiratory: The patient denies tuberculosis, denies pneumonia, denies frequent cough, denies pulmonary embolism, denies shortness of breath, and denies coughing up blood. Gastrointestinal: The patient denies difficulty swallowing, denies acid reflux, denies ulcers, denies vomiting, denies jaundice/hepatitis, denies gallbladder problems, denies black or tarry stools, denies hemorrhoids, denies bleeding from rectum, denies diverticulitis, denies constipation, denies diarrhea, denies loss of stool control, and NOTES hernias. Kidney/Bladder: The patient denies kidney stones, denies urine infections, and denies bloody urine. Skin: The patient NOTES a history of skin cancer, denies bleeding/changing moles, and denies a history of skin rash. Neurologic: The patient denies a history of epilepsy/convulsions, denies headaches, denies head/spinal injuries, and denies stroke/TIA. Psychiatric: The patient denies psychiatric medications, denies depression, and denies voices, denies substance abuse. Endocrine: The patient denies thyroid disorders, denies diabetes, and denies hormonal problems. Hematologic: The patient denies a history of bruising, denies bleeding, and denies anemia, denies blood clots. Infections: The patient NOTES a history of measles and mumps, denies rheumatic fever, and denies sexually transmitted diseases. Musculoskeletal: The patient denies back pain/injury, denies back problems, denies sciatica, denies knee/foot trouble, NOTES arthritis, or denies gout. When was patient's last Mammogram screening? N/A Last Colonoscopy: 01/2015 Kyra De La Garza HALLEY Follow-up and Disposition History Recorded Encounter Status:Closed by ADÁN REDDY MD on 07/31/18 PROGRESS Observed: 07/22/2018 Status: COMPLETED Source: [place] 8:46 AM [facility] REPOSITORY HNO ID: [id number] Author: Wild Dial V Service: (none) Author Type: Physician Type: Progress Notes Filed: 07/22/2018 9:57 AM Note Text: Juanito Worley MD [address] [facility] [address] Mr. Lemons is a 73 year old male that presents today complaining of hip problems on the right side for the last 1 year. He claims that there is no specific incident that brought on this pain. The pain is described as chronic and constant located in the hip and groin. Patient states that his pain level is a number 5 on a scale of 1-10 Denies low back pain. Patient reports difficulty with standing and walking. There has not been a change in bowel or bladder patterns since the pain started. Patient reports no pain in the hip when coughing or sneezing. ALLERGIES: Patient has no known allergies. MEDICATIONS: Current Outpatient Prescriptions: LOW-DOSE ASPIRIN ORAL Take 1 tablet by mouth once daily. atorvastatin (LIPITOR) 40 mg tablet Take 1 tablet by mouth daily at bedtime. For cholesterol. amLODIPine (NORVASC) 5 mg tablet Take 1 tablet by mouth once daily. naproxen sodium (ALEVE) 220 mg cap Take by mouth. No current facility-administered medications for this visit. MEDICAL HISTORY: PAST MEDICAL HISTORY Diagnosis Date - Actinic keratoses 11/07/2009 Mohs' surgery left temporal 2009 Nose prior to that - BCC (basal cell carcinoma of skin) 10/24/2012 [facility]. - BPH with urinary obstruction 11/07/2009 - Essential hypertension 10/20/2017 - Headache(784.0) - Hemorrhoid - Hyperlipidemia 11/07/2009 SURGICAL HISTORY: PAST SURGICAL HISTORY Procedure Laterality Date - COLONOSCOP W/ OR W/O [facility] SPEC 02/21/15 few diverticula, otherwise normal - COLONOSCOPY 12/21/03 - MOHS, 1 STAGE, HEAD/NECK/HAND/FEET/GENTIAL 2011 RT NECK - MOHS, 1 STAGE, HEAD/NECK/HAND/FEET/GENTIAL 2011 UPPER LIP - PAST SURGICAL HISTORY OF various actinic keratoses, nose and left scalp, BCC Followed by DERM - REPAIR INGUINAL HERNIA Bilateral 2005 bilateral inguinal hernias with mesh, Dr. 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 PHYSICAL ASSESSMENT: The Pt walks with a limping gait B/l LE have Nl Alignment The Left hip reveals no hip flexion contracture, 0-100 degrees of flexion, Internal Rotation to 20 degrees in flexion and external rotation to 45 degrees in flexion. Abduction to 45 degrees and adduction to 20 degrees. There is no pain with palpation over the ischial tuberosity or the greater trochanter. The Right hip reveals no hip flexion contracture, 0-100 degrees of flexion, Internal Rotation to 0 degrees in flexion and external rotation to 25 degrees in flexion. Abduction to 25 degrees and adduction to 20 degrees. There is no pain with palpation over the ischial tuberosity or the greater trochanter. EHL 5/5 DF 5/5 PF 5/5 DP Pulses 2/2 PT Pulses 2/2 RADIOGRAPH: ADVANCED DEGENERATIVE JOINT DISEASE OF THE RIGHT HIP PROGRESSED SINCE THE PREVIOUS EXAM ASSESSMENT: Right Hip Osteoarthritis PLAN: discussed treatment options including PT/rehab exercises to improve ROM, meloxicam, cortisone injection, surgical referral. He would like to think over his options and call later once he decides what he would like to do. Wild Dial DO PROGRESS Observed: 07/22/2018 Status: COMPLETED Source: VOSS 8:01 AM [facility] REPOSITORY HNO ID: [id number] Author: Lavonne (Rn) AKILAH Valdez Service: (none) Author Type: Registered Nurse Type: Progress Notes Filed: 07/22/2018 9:57 AM Note Text: AMB ROOMING INTAKE FLOWSHEET DATA Risk Screening Do you have concerns about personal safety or safety in the home?: No Pain Pain Score: 5/10 Pain Location: Hip-Right Description: Aching Duration Amount of Time: 1 Duration Units: Years Frequency: Intermittent Intervention: Medication (aleve ) Patient presents with: New Patient: OA right hip, ref- Worley, xray- 07/05/18 patient is here for OA of right hip, 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 This has been going on for one year and he takes aleve for pain. Right knee is starting to have pain due to hip/and gait. Lavonne Valdez RN CNOV Observed: 07/22/2018 Status: COMPLETED Source: VOSS 8:00 AM [facility] REPOSITORY Office Visit (UC) ALY LEMONS ([id number]) 1945 M Date Time Provider Department 07/22/18 8:00 AM WILD DIAL During your visit today, we recorded the following information about you: Lavonne Valdez RN, RN 07/22/2018 9:57 AM Signed AMB ROOMING INTAKE FLOWSHEET DATA Risk Screening Do you have concerns about personal safety or safety in the home?: No Pain Pain Score: 5/10 Pain Location: Hip-Right Description: Aching Duration Amount of Time: 1 Duration Units: Years Frequency: Intermittent Intervention: Medication (aleve ) Patient presents with: New Patient: OA right hip, ref- Worley, xray- 07/05/18 patient is here for OA of right hip, 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 This has been going on for one year and he takes aleve for pain. Right knee is starting to have pain due to hip/and gait. AKILAH Bacon, DO 07/22/2018 9:57 AM Signed Juanito Worley MD [address] [facility] [address] Mr. Lemons is a 73 year old male that presents today complaining of hip problems on the right side for the last 1 year. He claims that there is no specific incident that brought on this pain. The pain is described as chronic and constant located in the hip and groin. Patient states that his pain level is a number 5 on a scale of 1-10 Denies low back pain. Patient reports difficulty with standing and walking. There has not been a change in bowel or bladder patterns since the pain started. Patient reports no pain in the hip when coughing or sneezing. ALLERGIES: Patient has no known allergies. MEDICATIONS: Current Outpatient Prescriptions: LOW-DOSE ASPIRIN ORAL Take 1 tablet by mouth once daily. atorvastatin (LIPITOR) 40 mg tablet Take 1 tablet by mouth daily at bedtime. For cholesterol. amLODIPine (NORVASC) 5 mg tablet Take 1 tablet by mouth once daily. naproxen sodium (ALEVE) 220 mg cap Take by mouth. No current facility-administered medications for this visit. MEDICAL HISTORY: PAST MEDICAL HISTORY Diagnosis Date - Actinic keratoses 11/07/2009 Mohs' surgery left temporal 2009 Nose prior to that - BCC (basal cell carcinoma of skin) 10/24/2012 [facility]. - BPH with urinary obstruction 11/07/2009 - Essential hypertension 10/20/2017 - Headache(784.0) - Hemorrhoid - Hyperlipidemia 11/07/2009 SURGICAL HISTORY: PAST SURGICAL HISTORY Procedure Laterality Date - COLONOSCOP W/ OR W/O [facility] SPEC 02/21/15 few diverticula, otherwise normal - COLONOSCOPY 12/21/03 - MOHS, 1 STAGE, HEAD/NECK/HAND/FEET/GENTIAL 2011 RT NECK - MOHS, 1 STAGE, HEAD/NECK/HAND/FEET/GENTIAL 2011 UPPER LIP - PAST SURGICAL HISTORY OF various actinic keratoses, nose and left scalp, BCC Followed by DERM - REPAIR INGUINAL HERNIA Bilateral 2006 bilateral inguinal hernias with mesh, Dr. 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 PHYSICAL ASSESSMENT: The Pt walks with a limping gait B/l LE have Nl Alignment The Left hip reveals no hip flexion contracture, 0-100 degrees of flexion, Internal Rotation to 20 degrees in flexion and external rotation to 45 degrees in flexion. Abduction to 45 degrees and adduction to 20 degrees. There is no pain with palpation over the ischial tuberosity or the greater trochanter. The Right hip reveals no hip flexion contracture, 0-100 degrees of flexion, Internal Rotation to 0 degrees in flexion and external rotation to 25 degrees in flexion. Abduction to 25 degrees and adduction to 20 degrees. There is no pain with palpation over the ischial tuberosity or the greater trochanter. EHL 5/5 DF 5/5 PF 5/5 DP Pulses 2/2 PT Pulses 2/2 RADIOGRAPH: ADVANCED DEGENERATIVE JOINT DISEASE OF THE RIGHT HIP PROGRESSED SINCE THE PREVIOUS EXAM ASSESSMENT: Right Hip Osteoarthritis PLAN: discussed treatment options including PT/rehab exercises to improve ROM, meloxicam, cortisone injection, surgical referral. He would like to think over his options and call later once he decides what he would like to do. Wild Dial DO Referring Provider: JUANITO WORLEY [[id number]] Allergies As of Date: 07/22/2018 (No Known Allergies) Date Reviewed: 07/22/2018 Reviewed by: Lavonne Kaur) AKILAH Valdez - Fully Assessed Reason for Visit: New Patient [172] Cmt: OA right hip, ref- lane Worley- 07/05/18 Primary Visit Diagnosis:Primary osteoarthritis of right hip [M16.11] Prescriptions as of 07/22/2018 Sig: LOW-DOSE ASPIRIN ORAL Take 1 tablet by mouth once d* ATORVASTATIN 40 MG TABLET Take 1 tablet by mouth daily * AMLODIPINE 5 MG TABLET Take 1 tablet by mouth once d* NAPROXEN SODIUM 220 MG CAPSULE Take by mouth. More... Problem List As Of Date 07/22/2018 Noted Resolved Hyperlipidemia [E78.5] INVALID FOR* More... Actinic keratoses [L57.0] INVALID FOR* BPH with Urinary Obstruction [N40.1, N13.8] INVALID FOR* More... BCC (basal cell carcinoma of skin) [C44.91] INVALID FOR* More... Headache(784.0) [R51] INVALID FOR*12/28/2016 More... Aortic atherosclerosis (HCC) [I70.0] 12/26/2015 More... Elevated prostate specific antigen (PSA) [R97.2*INVALID FOR* Impaired fasting blood sugar [R73.01] INVALID FOR* Nocturnal leg cramps [G47.62] INVALID FOR* Dizziness [R42] INVALID FOR*01/03/2018 Primary osteoarthritis of right hip [M16.11] INVALID FOR* Essential hypertension [I10] INVALID FOR* Left inguinal hernia [K40.90] INVALID FOR* Encounter Status:Closed by WILD DIAL DO, V on 07/22/18 XR HIP 3V PELV+ Observed: 07/05/2018 Status: F Source: VOSS AP/LAT RT 10:46 AM [facility] REPOSITORY * * *Final Report* * * DATE OF EXAM: Jul 05 2018 10:46AM WOX [id number] - XR HIP 3V PELV+ AP/LAT RT / PROCEDURE REASON: Unilateral primary osteoarthritis, right hip * * * * Physician Interpretation * * * * HISTORY: 73-YEAR-OLD MALE WITH Unilateral primary osteoarthritis, right hip . right hip pain for a long time/no injury TECHNIQUE: XR HIP 3V PELV+ AP/LAT RT Laterality: RIGHT Number of different views (projections): 3 COMPARISON: 05/29/2017 RESULT: Marked superior hip joint space narrowing with near [id number] contact. Subchondral cysts, subchondral sclerosis, collar marginal osteophytes. Evidence for remote avulsion injury at the anterior inferior iliac spine. Multiple clips and coils in the pelvis . Mild degenerative changes of left hip. Sacroiliac joints are intact. Degenerative changes of visualized lumbar spine. IMPRESSION: ADVANCED DEGENERATIVE JOINT DISEASE OF THE RIGHT HIP PROGRESSED SINCE THE PREVIOUS EXAM Bridge Engineer: MARIBEL Transcribe Date/Time: Jul 05 2018 12:31P Dictated by : AP JOHANSEN MD This examination was interpreted and the report reviewed and electronically signed by: AP JOHANSEN MD on Jul 05 2018 12:33PM EST [id number] PROGRESS Observed: 07/05/2018 Status: COMPLETED Source: VOSS 10:33 AM [facility] REPOSITORY HNO ID: [id number] Author: Jonathan Davis (Tech) Service: (none) Author Type: Seed Yeast Operator Type: Progress Notes Filed: 07/05/2018 10:47 AM Note Text: Radiology Service Progress Note PATIENT NAME: Aly Lemons DATE OF SERVICE: July 05, 2018 TIME: 10:33 AM PATIENT IDENTITY VERIFICATION COMPLETED USING TWO (2) METHODS: Patient confirmed name verbally and Date of . PATIENT GENDER DATA: Male PATIENT RELEVANT IMPLANT DATA REVIEWED: Not Applicable RADIOLOGY DEPARTMENT: General X-ray: Exam(s) Completed: Pelvis X-Ray: Pelvis with Hip Right PERIPHERAL IV DATA: Not applicable SIGNED BY: Jonathan Eli July 05, 2018 10:33 AM PROGRESS Observed: 07/05/2018 Status: COMPLETED Source: VOSS 10:06 AM [facility] REPOSITORY HNO ID: [id number] Author: Juanito Worley Service: (none) Author Type: Physician Type: Progress Notes Filed: 07/05/2018 10:11 AM Note Text: This note was created using [employer]. Subjective Aly Lemons is a 73 year old male was here for follow up. His hypertension and lipids were controlled. His right hip was becoming more bothersome. He was limping when getting up early in the morning. Tying his shoe needed some external hip rotation now. His right knee was also hurting at times with ambulation. He had no significant reduction in activities of daily living and [place] Aleve was not taken with any regularity. His PSA was being monitored. He noted a hernia of his left groin one month ago with no symptoms. ACTIVE PROBLEM LIST Hyperlipidemia Actinic Keratoses Bph With Urinary Obstruction Bcc (Basal Cell Carcinoma of Skin) Elevated Prostate Specific Antigen (Psa) Impaired Fasting Blood Sugar Nocturnal Leg Cramps Primary Osteoarthritis of Right Hip Essential Hypertension Left Inguinal Hernia Current Outpatient Prescriptions: LOW-DOSE ASPIRIN ORAL Take 1 tablet by mouth once daily. atorvastatin (LIPITOR) 40 mg tablet Take 1 tablet by mouth daily at bedtime. For cholesterol. amLODIPine (NORVASC) 5 mg tablet Take 1 tablet by mouth once daily. naproxen sodium (ALEVE) 220 mg cap Take by mouth. No current facility-administered medications for this visit. Review of Systems Constitutional: Negative. Respiratory: Negative. Cardiovascular: Negative. Gastrointestinal: Negative. Genitourinary: Negative. Musculoskeletal: Positive for arthralgias. Objective BP 130/72 (BP Site: Left Arm, BP Position: Sitting, BP Cuff Size: Regular Adult) Pulse 68 Temp (!) 35.7 ?C (96.3 ?F) (Left Tympanic) Resp 12 Wt 82.6 kg (182 lb) BMI 26.23 kg/m? Physical Exam Constitutional: He appears well-nourished. Cardiovascular: Normal heart sounds. Exam reveals no gallop. No murmur heard. Pulmonary/Chest: Breath sounds normal. Abdominal: Soft. Bowel sounds are normal. There is no tenderness. A hernia is present. Hernia confirmed positive in the left inguinal area. Musculoskeletal: Right hip: He exhibits decreased range of motion. He exhibits normal strength, no tenderness and no crepitus. Component Latest Ref Rng AND Units 07/04/2018 Protein, Total 6.3 - 8.0 g/dL 6.6 Albumin 3.9 - 4.9 g/dL 4.2 Calcium 8.5 - 10.2 mg/dL 8.8 Bilirubin, Total 0.2 - 1.3 mg/dL 0.7 Alkaline Phosphatase 36 - 108 U/L 71 AST 14 - 40 U/L 21 Glucose 74 - 99 mg/dL 97 BUN 9 - 24 mg/dL 23 Creatinine 0.73 - 1.22 mg/dL 0.90 Sodium 136 - 144 mmol/L 144 Potassium 3.7 - 5.1 mmol/L 4.3 Chloride 97 - 105 mmol/L 107 (H) CO2 22 - 30 mmol/L 25 Anion Gap 9 - 18 mmol/L 12 ALT 10 - 54 U/L 16 eGFR- >60 eGFR-All Other Races . >60 Cholesterol, Total <200 mg/dL 128 Triglyceride <150 mg/dL 64 HDL Cholesterol >39 mg/dL 55 LDL Cholesterol <100 mg/dL 60 Non HDL Cholesterol <130 mg/dL 73 Fasting Time hrs 14 VLDL Cholesterol <30 mg/dL 13 TC:HDL Ratio <5.10 2.33 LDL:HDL Ratio <2.54 1.09 Assessment and Plan 1. Primary osteoarthritis of right hip - ICD9: 715.15, ICD10: M16.11 (primary diagnosis) Options were discussed, including continued observation. He was interested in an orthopedic evaluation. - CONSULT TO ORTHOPAEDICS - XR HIP GENERAL 3V PELV/AP/LAT RT 2. Left inguinal hernia - ICD9: 550.90, ICD10: K40.90 Recurrent. Options were discussed, including observation. He was interested in a surgical evaluation. - CONSULT TO GENERAL SURGERY 3. Essential hypertension - ICD9: 401.9, ICD10: I10 - good control 4. Hyperlipidemia, unspecified hyperlipidemia type - ICD9: 272.4, ICD10: E78.5 - good control - Continue current medication. Juanito Worley MD CNOV Observed: 07/05/2018 Status: COMPLETED Source: VOSS 8:40 AM [facility] REPOSITORY Office Visit (INTMWS) ALY LEMONS ([id number]) 1945 M Date Time Provider Department 07/05/18 8:40 AM JUANITO WORLEY INTFelishaWS During your visit today, we recorded the following information about you: Temperature Pulse Respiration Blood pressure 96.3 degrees 68/minute 12/minute 130/72 Weight 82.6 kg Juanito Worley MD 07/05/2018 10:11 AM Signed This note was created using NoteWriter. Subjective Aly L Vesta is a 73 year old male was here for follow up. His hypertension and lipids were controlled. His right hip was becoming more bothersome. He was limping when getting up early in the morning. Tying his shoe needed some external hip rotation now. His right knee was also hurting at times with ambulation. He had no significant reduction in activities of daily living and he [place] a lot [place] his [place]. Aleve was not taken with any regularity. His PSA was being monitored. He noted a hernia of his left groin one month ago with no symptoms. ACTIVE PROBLEM LIST Hyperlipidemia Actinic Keratoses Bph With Urinary Obstruction Bcc (Basal Cell Carcinoma of Skin) Elevated Prostate Specific Antigen (Psa) Impaired Fasting Blood Sugar Nocturnal Leg Cramps Primary Osteoarthritis of Right Hip Essential Hypertension Left Inguinal Hernia Current Outpatient Prescriptions: LOW-DOSE ASPIRIN ORAL Take 1 tablet by mouth once daily. atorvastatin (LIPITOR) 40 mg tablet Take 1 tablet by mouth daily at bedtime. For cholesterol. amLODIPine (NORVASC) 5 mg tablet Take 1 tablet by mouth once daily. naproxen sodium (ALEVE) 220 mg cap Take by mouth. No current facility-administered medications for this visit. Review of Systems Constitutional: Negative. Respiratory: Negative. Cardiovascular: Negative. Gastrointestinal: Negative. Genitourinary: Negative. Musculoskeletal: Positive for arthralgias. Objective BP 130/72 (BP Site: Left Arm, BP Position: Sitting, BP Cuff Size: Regular Adult) Pulse 68 Temp (!) 35.7 ?C (96.3 ?F) (Left Tympanic) Resp 12 Wt 82.6 kg (182 lb) BMI 26.23 kg/m? Physical Exam Constitutional: He appears well-nourished. Cardiovascular: Normal heart sounds. Exam reveals no gallop. No murmur heard. Pulmonary/Chest: Breath sounds normal. Abdominal: Soft. Bowel sounds are normal. There is no tenderness. A hernia is present. Hernia confirmed positive in the left inguinal area. Musculoskeletal: Right hip: He exhibits decreased range of motion. He exhibits normal strength, no tenderness and no crepitus. Component Latest Ref Rng AND Units 07/04/2018 Protein, Total 6.3 - 8.0 g/dL 6.6 Albumin 3.9 - 4.9 g/dL 4.2 Calcium 8.5 - 10.2 mg/dL 8.8 Bilirubin, Total 0.2 - 1.3 mg/dL 0.7 Alkaline Phosphatase 36 - 108 U/L 71 AST 14 - 40 U/L 21 Glucose 74 - 99 mg/dL 97 BUN 9 - 24 mg/dL 23 Creatinine 0.73 - 1.22 mg/dL 0.90 Sodium 136 - 144 mmol/L 144 Potassium 3.7 - 5.1 mmol/L 4.3 Chloride 97 - 105 mmol/L 107 (H) CO2 22 - 30 mmol/L 25 Anion Gap 9 - 18 mmol/L 12 ALT 10 - 54 U/L 16 eGFR- >60 eGFR-All Other Races . >60 Cholesterol, Total <200 mg/dL 128 Triglyceride <150 mg/dL 64 HDL Cholesterol >39 mg/dL 55 LDL Cholesterol <100 mg/dL 60 Non HDL Cholesterol <130 mg/dL 73 Fasting Time hrs 14 VLDL Cholesterol <30 mg/dL 13 TC:HDL Ratio <5.10 2.33 LDL:HDL Ratio <2.54 1.09 Assessment and Plan 1. Primary osteoarthritis of right hip - ICD9: 715.15, ICD10: M16.11 (primary diagnosis) Options were discussed, including continued observation. He was interested in an orthopedic evaluation. - CONSULT TO ORTHOPAEDICS - XR HIP GENERAL 3V PELV/AP/LAT RT 2. Left inguinal hernia - ICD9: 550.90, ICD10: K40.90 Recurrent. Options were discussed, including observation. He was interested in a surgical evaluation. - CONSULT TO GENERAL SURGERY 3. Essential hypertension - ICD9: 401.9, ICD10: I10 - good control 4. Hyperlipidemia, unspecified hyperlipidemia type - ICD9: 272.4, ICD10: E78.5 - good control - Continue current medication. Juanito Worley MD Referring Provider: JUANITO WORLEY [[id number]] Allergies As of Date: 07/05/2018 (No Known Allergies) Date Reviewed: 07/05/2018 Reviewed by: Priyanka Wu LPN - Fully Assessed Reason for Visit: F/U 6 Month [444] Primary Visit Diagnosis:Primary osteoarthritis of right hip [M16.11] Other Visit Diagnoses:Left inguinal hernia [K40.90] Essential hypertension [I10] Hyperlipidemia, unspecified hyperlipidemia type [E78.5] Order(s):CONSULT TO ORTHOPAEDICS [9026] Order #: [id number]: 1 XR HIP GENERAL 3V PELV/AP/LAT RT [4412741] Order #: [id number] FUTURE CONSULT TO GENERAL SURGERY [9011] Order #: [id number]: 1 Prescriptions as of 07/05/2018 Sig: LOW-DOSE ASPIRIN ORAL Take 1 tablet by mouth once d* ATORVASTATIN 40 MG TABLET Take 1 tablet by mouth daily * AMLODIPINE 5 MG TABLET Take 1 tablet by mouth once d* NAPROXEN SODIUM 220 MG CAPSULE Take by mouth. Medication notes this encounter NAPROXEN SODIUM 220 MG CAPSULE >> Priyanka Wu WARD ASSISTANT 07/05/2018 9:15 AM >> PRIYANKA WU WARD ASSISTANT WedJul 05, 2018 9:15 AM PRN More... Problem List As Of Date 07/05/2018 Noted Resolved Hyperlipidemia [E78.5] INVALID FOR* More... Actinic keratoses [L57.0] INVALID FOR* BPH with Urinary Obstruction [N40.1, N13.8] INVALID FOR* More... BCC (basal cell carcinoma of skin) [C44.91] INVALID FOR* More... Headache(784.0) [R51] INVALID FOR*12/28/2016 More... Aortic atherosclerosis (HCC) [I70.0] 12/26/2015 More... Elevated prostate specific antigen (PSA) [R97.2*INVALID FOR* Impaired fasting blood sugar [R73.01] INVALID FOR* Nocturnal leg cramps [G47.62] INVALID FOR* Dizziness [R42] INVALID FOR*01/03/2018 Primary osteoarthritis of right hip [M16.11] INVALID FOR* Essential hypertension [I10] INVALID FOR* Left inguinal hernia [K40.90] INVALID FOR* Disposition: Return in about 6 months (around 01/05/2019). Follow-up and Disposition History Recorded Encounter Status:Closed by JUANITO WORLEY MD on 07/05/18 COMP METABOLIC PANEL Collected: 07/04/2018 Status: F Source: VOSS 10:58 AM [facility] REPOSITORY TYPE CODE TESTS RESULT OUT OF REFERENCE UNITS RANGE LAB TP 6.3-8.0 g/dL Protein, Total 6.6 LAB ALB 3.9-4.9 g/dL Albumin 4.2 LAB CA 8.5-10.2 mg/dL Calcium, Total 8.8 LAB TBIL 0.2-1.3 mg/dL Bilirubin, Total 0.7 LAB ALKP 36-108 U/L Alkaline Phosphatase 71 LAB AST 14-40 U/L AST 21 LAB GLU 74-99 mg/dL Glucose 97 Result Comment: The [place] Diabetes [employer] (ADA) provides guidance for cutoff values for fasting glucose and random glucose. The ADA defines fasting as no caloric intake for at least 8 hours. Fas ting plasma glucose results between 100 to 125 mg/dL indicate increased risk for diabetes (prediabetes). Fasting plasma glucose results greater than or equal to 126 mg/dL meet the criteria for diagnosis of diabetes. In the absence of unequivocal hyperglycemia, results should be confirmed by repeat testing. In a patient with classic symptoms of hyperglycemia or hyperglycemic crisis, random plasma glucose results greater than or equal to 200 mg/dL meet the criteria for diagnosis of diabetes. Reference: Standards of Medical Care in Diabetes 2016, [place] [employer] Association. Diabetes Care. 2016.39(Suppl 1). LAB BUN 9-24 mg/dL BUN 23 LAB CRET 0.73-1.22 mg/dL Creatinine 0.90 LAB NA 136-144 mmol/L Sodium 144 LAB K 3.7-5.1 mmol/L Potassium 4.3 LAB CL 97-105 mmol/L Chloride High 107 LAB CO2 22-30 mmol/L CO2 25 LAB AGAP 9-18 mmol/L Anion Gap 12 LAB ALT 10-54 U/L ALT 16 LAB GFRAA eGFR- Amer. >60 LAB GFRNAA . eGFR-All Other Races >60 Result Comment: eGFR (Estimated GFR) Units of measure: mL/min/1.73 meters squared eGFR is derived from the reexpressed MDRD Study equation using the following parameters: serum creatinine, age, gender and race. The creatinine assay has been calibrated to be traceable to IDMS. An eGFR <60 mL/min/1.73m2 for >3 months is consistent with chronic kidney disease. Refer to KDOQI guidelines for clinical interpretation. In patients with unstable renal function, e.g. those with acute kidney injury, the eGFR may not accurately reflect actual GFR. Performed By: #### CMP, LIPB #### [facility] [address] [address] LIPID PANEL, BASIC Collected: 07/04/2018 Status: F Source: VOSS 10:58 AM [facility] REPOSITORY TYPE CODE TESTS RESULT OUT OF REFERENCE UNITS RANGE LAB CHOL <200 mg/dL Cholesterol 128 Result Comment: <200 mg/dL, Desirable 200-239 mg/dL, Borderline high >239 mg/dL, High LAB TRIGLY <150 mg/dL Triglyceride 64 Result Comment: <150 mg/dL, Normal 150-199 mg/dL, Borderline high 200-499 mg/dL, High >499 mg/dL, Very high LAB HDL >39 mg/dL HDL-Cholesterol 55 Result Comment: 40-59 mg/dL, Acceptable >59 mg/dL, High: Negative risk factor for coronary heart disease <40 mg/dL, Low: Positive risk factor for coronary heart disease LAB LDL <100 mg/dL LDL-Cholesterol 60 Result Comment: <100 mg/dL, Optimal 100-129 mg/dL, Near optimal/above optimal 130-159 mg/dL, Borderline high 160-189 mg/dL, High >189 mg/dL, Very high Secondary prevention optimal LDL Cholesterol levels are recommended to be < 70 mg/dL LAB NONHDL <130 mg/dL Non HDL Cholesterol 73 Result Comment: <130 mg/dL, Optimal 130-159 mg/dL, Near optimal/above optimal 160-189 mg/dL, Borderline high 190-219 mg/dL, High >219 mg/dL, Very high Secondary prevention optimal non HDL Cholesterol levels are recommended to be < 100 mg/dL LAB FT hrs Fasting Time 14 LAB VLDL <30 mg/dL VLDL Cholesterol 13 LAB TCHDL <5.10 TC:HDL Ratio 2.33 LAB LDLHDL <2.54 LDL:HDL Ratio 1.09 Result Comment: Reference: 1. National Cholesterol Education Program ATP III Guideline At-A-Glance Quick Desk Reference: National Heart, Lung, and Blood [place]. National Institutes of Health. 2001: NIH Publication No. 01-3305. 2. An International Atherosclerosis Society position paper: global recommendations for the management of dyslipidemia: executive summary, Atherosclerosis. 2014: 232(2):410-413. Performed By: #### CMP, LIPB #### [facility] [address] [place], [place] [address] PSA,TOTAL- DIAGNOSTIC Collected: 04/21/2018 Status: F Source: JORGE 12:37 PM [facility] REPOSITORY TYPE CODE TESTS RESULT OUT OF REFERENCE UNITS RANGE LAB [id number] 0.0-4.0 ng/mL PSA, High DIAGNOSTIC 5.04 Result Comment: This test was performed using the TPSA assay method for the [employer] chemistry system. Values obtained with different assay methods cannot be used interchangably. When changing PSA assays in the course of monitoring a patient, additional sequential testing should be carried out to confirm baseline values. Performed By: #### [id number] #### [facility] [address] [place], [address] CNPN Observed: 01/10/2018 Status: COMPLETED Source: VOSS 12:00 AM [facility] REPOSITORY Telephone (INTMWS) ALY LEMONS ([id number]) 1945 M Date Time Provider Department 01/10/18 JUANITO WORLEY INTMWS During your visit today, we recorded the following information about you: Felisha Becerra RN 01/10/2018 2:21 PM Signed Faxed urology consult and demographics to Dr. Carlos office, per patient request. Rosalba Fernández Psr 01/11/2018 2:37 PM Signed Patient Aly called he was contacted by Dr. Carlos-urology office missing information. Please call Dr. Carlos [phone]. Naa Julian LPN 01/12/2018 9:40 AM Signed Info faxed to Dr. Carlos's office yesterday. Allergies As of Date: 01/10/2018 (No Known Allergies) Date Reviewed: 01/03/2018 Reviewed by: Priyanka Wu LPN - Fully Assessed Reason for Visit: Faxed [Other] Prescriptions as of 01/10/2018 Sig: LOW-DOSE ASPIRIN ORAL Take 1 tablet by mouth once d* ATORVASTATIN 40 MG TABLET Take 1 tablet by mouth daily * AMLODIPINE 5 MG TABLET Take 1 tablet by mouth once d* NAPROXEN SODIUM 220 MG CAPSULE Take by mouth. More... Problem List As Of Date 01/10/2018 Noted Resolved Hyperlipidemia [E78.5] INVALID FOR* More... Actinic keratoses [L57.0] INVALID FOR* BPH with Urinary Obstruction [N40.1, N13.8] INVALID FOR* More... BCC (basal cell carcinoma of skin) [C44.91] INVALID FOR* More... Headache(784.0) [R51] INVALID FOR*12/28/2016 More... Aortic atherosclerosis (HCC) [I70.0] 12/26/2015 More... Elevated prostate specific antigen (PSA) [R97.2*INVALID FOR* Impaired fasting blood sugar [R73.01] INVALID FOR* Nocturnal leg cramps [G47.62] INVALID FOR* Dizziness [R42] INVALID FOR*01/03/2018 Primary osteoarthritis of right hip [M16.11] INVALID FOR* Essential hypertension [I10] INVALID FOR* Encounter Status:Closed by Felisha BECERRA RN on 01/10/18 PROGRESS Observed: 01/03/2018 Status: COMPLETED Source: [facility] 9:57 AM [facility] REPOSITORY O ID: [id number] Author: Juanito Worley Service: (none) Author Type: Physician Type: Progress Notes Filed: 01/03/2018 10:01 AM Note Text: This note was created using [employer]. Subjective Aly Lemons is a 72 year old male was here for follow up. He was diagnosed with hypertension by Neurology in September, and was started on amlodipine. He was tolerating this well with no adverse effects. His dizziness resolved with physical therapy. His benign prostatic hypertrophy was stable, but his PSA was elevating. He lost weight voluntarily over the past few years and his glucose improved. ACTIVE PROBLEM LIST Hyperlipidemia Actinic Keratoses Bph With Urinary Obstruction Bcc (Basal Cell Carcinoma of Skin) Elevated Prostate Specific Antigen (Psa) Impaired Fasting Blood Sugar Nocturnal Leg Cramps Primary Osteoarthritis of Right Hip Essential Hypertension Current Outpatient Prescriptions: LOW-DOSE ASPIRIN ORAL Take 1 tablet by mouth once daily. atorvastatin (LIPITOR) 40 mg tablet Take 1 tablet by mouth daily at bedtime. For cholesterol. amLODIPine (NORVASC) 5 mg tablet Take 1 tablet by mouth once daily. naproxen sodium (ALEVE) 220 mg cap Take by mouth. No current facility-administered medications for this visit. Review of Systems Constitutional: Negative. Respiratory: Negative. Cardiovascular: Negative. Gastrointestinal: Negative. Genitourinary: Positive for frequency. Musculoskeletal: Positive for arthralgias. Neurological: Negative. Objective BP 130/74 (BP Site: Left Arm, BP Position: Sitting, BP Cuff Size: Large Adult) Pulse 68 Temp (!) 35.8 ?C (96.5 ?F) (Right Tympanic) Resp 20 Wt 83.9 kg (185 lb) BMI 26.66 kg/m2 Physical Exam Constitutional: No distress. Cardiovascular: Normal heart sounds. Exam reveals no gallop. No murmur heard. Pulmonary/Chest: Breath sounds normal. Musculoskeletal: He exhibits no edema. Test results pertinent to today's visit were reviewed and discussed with the patient. ASSESSMENT/PLAN: 1. Essential hypertension - ICD9: 401.9, ICD10: I10 (primary diagnosis) - recently diagnosed - Refill medication. - AMLODIPINE 5 MG TABLET 2. Hyperlipidemia, unspecified hyperlipidemia type - ICD9: 272.4, ICD10: E78.5 - good control - Continue current medication. - ATORVASTATIN 40 MG TABLET - LIPID PANEL BASIC 3. Need for vaccination - ICD9: V05.9, ICD10: Z23 - INFLUENZA SEASONAL HIGH DOSE AGE 65+ 4. Impaired fasting blood sugar - ICD9: 790.21, ICD10: R73.01 Improved, resolved. - COMP METABOLIC PANEL 5. Elevated prostate specific antigen (PSA) - ICD9: 790.93, ICD10: R97.20 Progressing. Options discussed. He agreed to referral to Dr. Carlos. - CONSULT TO UROLOGY Juanito Worley MD PROGRESS Observed: 01/03/2018 Status: COMPLETED Source: VOSS 9:24 AM [facility] REPOSITORY O ID: [id number] Author: Priyanka Wu LPN Service: (none) Author Type: (none) Type: Progress Notes Filed: 01/03/2018 10:01 AM Note Text: 72 year old male here for INACTIVATED INFLUENZA VACCINE. [id number] Season Patient is identified by name and date of : Yes [] CONTRAINDICATIONS color enhanced section Age less than 6 months? No Allergy to eggs, chicken, chicken feathers, or chicken dander? No Allergy to thimerosal (a preservative) or formaldehyde? No History of severe reaction to any vaccine component or a previous dose of influenza vaccination? No History of Guillain-[place] Syndrome within 6 weeks after a previous influenza vaccine? No Current moderate or severe illness? No Current temperature greater or equal to 100.4F? No History of Bone Marrow Transplant in past 6 months or solid organ transplant in the past 3 months ? No [] VERIFICATION color enhanced section Was the answer Yes for any of the above contraindications? No contraindications present. Acceptable to proceed with vaccine. Patient/guardian agrees the above answers are true to the best of their knowledge? Yes Flu vaccine information sheet given? Yes See immunization activity in [facility] for details of immunizations adminstered today. Patient age: [age] year old For The Flu Season 6-35 months old: Fluzone 0.25 ml - IM (Preservative Free) 3 years of age: Fluzone 0.5 ml - IM (Preservative Free) 3 years and older: Fluzone 0.5 ml- IM-(with Preservatives) 65+ years old: Fluzone High-Dose 0.5 ml - IM (Preservative Free) REMEMBER: If patient is less than 9 years of age and this is the first vaccine of Influenza to be received in any flu season, they should receive a second dose in one months time. 72 year old male here for INACTIVATED INFLUENZA VACCINE. Season Patient is identified by name and date of : Yes [] CONTRAINDICATIONS color enhanced section Age less than 6 months? No Allergy to eggs, chicken, chicken feathers, or chicken dander? No Allergy to thimerosal (a preservative) or formaldehyde? No History of severe reaction to any vaccine component or a previous dose of influenza vaccination? No History of Guillain-Phillips[place] Syndrome within 6 weeks after a previous influenza vaccine? No Current moderate or severe illness? No Current temperature greater or equal to 100.4F? No History of Bone Marrow Transplant in past 6 months or solid organ transplant in the past 3 months ? No [] VERIFICATION color enhanced section Was the answer Yes for any of the above contraindications? No contraindications present. Acceptable to proceed with vaccine. Patient/guardian agrees the above answers are true to the best of their knowledge? Yes Flu vaccine information sheet given? Yes See immunization activity in [facility] for details of immunizations adminstered today. Patient age: [age] year old For The 9418-9886 Flu Season 6-35 months old: Fluzone 0.25 ml - IM (Preservative Free) 3 years of age: Fluzone 0.5 ml - IM (Preservative Free) 3 years and older: Fluzone 0.5 ml- IM-(with Preservatives) 65+ years old: Fluzone High-Dose 0.5 ml - IM (Preservative Free) REMEMBER: If patient is less than 9 years of age and this is the first vaccine of Influenza to be received in any flu season, they should receive a second dose in one months time. BASIC METABOLIC PANL Collected: 12/29/2017 Status: F Source: VOSS 8:15 AM [facility] REPOSITORY TYPE CODE TESTS RESULT OUT OF REFERENCE UNITS RANGE LAB GLU 74-99 mg/dL Glucose 93 Result Comment: The [place] Diabetes Association (ADA) provides guidance for cutoff values for fasting glucose and random glucose. The ADA defines fasting as no caloric intake for at least 8 hours. Fas ting plasma glucose results between 100 to 125 mg/dL indicate increased risk for diabetes (prediabetes). Fasting plasma glucose results greater than or equal to 126 mg/dL meet the criteria for diagnosis of diabetes. In the absence of unequivocal hyperglycemia, results should be confirmed by repeat testing. In a patient with classic symptoms of hyperglycemia or hyperglycemic crisis, random plasma glucose results greater than or equal to 200 mg/dL meet the criteria for diagnosis of diabetes. Reference: Standards of Medical Care in Diabetes 2016, [place] [employer] Association. Diabetes Care. 2016.39(Suppl 1). LAB BUN 9-24 mg/dL BUN 22 LAB CRET 0.73-1.22 mg/dL Creatinine 0.97 LAB NA 136-144 mmol/L Sodium 143 LAB K 3.7-5.1 mmol/L Potassium 4.3 LAB CL 97-105 mmol/L Chloride 104 LAB CO2 22-30 mmol/L CO2 27 LAB AGAP 9-18 mmol/L Anion Gap 12 LAB CA 8.5-10.2 mg/dL Calcium, Total 8.8 LAB GFRAA eGFR- Amer. >60 LAB GFRNAA . eGFR-All Other Races >60 Result Comment: eGFR (Estimated GFR) Units of measure: mL/min/1.73 meters squared eGFR is derived from the reexpressed MDRD Study equation using the following parameters: serum creatinine, age, gender and race. The creatinine assay has been calibrated to be traceable to IDMS. An eGFR <60 mL/min/1.73m2 for >3 months is consistent with chronic kidney disease. Refer to KDOQI guidelines for clinical interpretation. In patients with unstable renal function, e.g. those with acute kidney injury, the eGFR may not accurately reflect actual GFR. Performed By: #### BMP, PSA, HBA1C #### [facility] [address] [place], [place] [address] PSA, DIAGNOSTIC Collected: 12/29/2017 Status: F Source: VOSS 8:15 AM [facility] REPOSITORY TYPE CODE TESTS RESULT OUT OF REFERENCE UNITS RANGE LAB PSA 0.00-2.59 ng/mL PSA, High Diagnostic 5.69 Result Comment: Total PSA test methodology used is the Electrochemiluminescence Immunoassay. For an individual patient, the significance of a PSA level should be interpreted in a broad clinical context, including age, race, family history, digital rectal exam, prostate size, results of prior te sting (prostate biopsy, free PSA, PCA3), and use of 5-alpha reductase inhibitors. Considering the high incidence of asymptomatic cancer in the general population that may not pose an ultimate risk to a patient, the decision to recommend urological evaluation or prostate biopsy should be individualized after consideration of all these factors. REFERENCE: Serafin Schroeder M.D., M.P.H., Lenny Victoria M.D., Ph.D., Marlon Mosley M.D., Melvi Carvajal, M.P.H., Vangie Chaparro Sc.D. Effect of Verification Bias on Screening for Prostate Cancer by Measurement of Prostatic Specific Antigen. N Engl J Med 2003,349:335-42. Performed By: #### BMP, PSA, HBA1C #### [facility] [address] [place], [place] [address] HEMOGLOBIN A1C Collected: 12/29/2017 Status: F Source: VOSS 8:15 AM [facility] REPOSITORY TYPE CODE TESTS RESULT OUT OF REFERENCE UNITS RANGE LAB HGBA1C 4.3-5.6 % Hemoglobin A1c 5.4 LAB HBA0 mg/dL Est. Average Glucose 108 Result Comment: eAG: (Estimated average glucose) is a calculated value from HgbA1c and is wholesale representative of the average blood glucose level in the last 2-3 month period. Performed By: #### BMP, PSA, HBA1C #### [facility] [address] [place], [place] [address] ALLERGIES ALLERGIES DATE TYPE / CODE NAME / CODE REACTION SEVERITY SOURCE 04/26/2017 Drug No Known Unknown [facility] Allergy/416 Allergies/N45803 Hospital 450800(SNOM 0388(RXNORM) Repository ED CT) Drug NO KNOWN [facility] Class/43111 ALLERGIES [facility] 1003(SNOMED Repository CT) ENCOUNTERS ENCOUNTERS ADMIT/DISCHARGE ACCOUNT ADMITTING ENCOUNTER LOCATION SOURCE NUMBER CLASS 10/25/2018 [id number] [facility] ing:LAB.FUTUR Repository E 10/04/2018/10/05/20 [id number] Ambulatory [address] Repository 07/28/2018 [id number] [facility] ing:LAB Repository 07/28/2018/08/02/20 [id number] Ambulatory [address] Repository 07/22/2018/07/25/20 [id number] Ambulatory [address] Repository 07/05/2018/07/05/20 [id number] Ambulatory [address] Repository 07/05/2018/07/06/20 [id number] Ambulatory [address] Repository 07/04/2018/07/04/20 [id number] Ambulatory [address] Repository 04/21/2018 [id number] [facility] ing:LAB.FUTUR Repository E 01/03/2018/01/05/20 [id number] Ambulatory [address] Repository 12/29/2017/12/29/19 [id number] Ambulatory [address] Repository PAYERS PAYERS ENCOUNTER GUARANTOR PAYER SUBSCRIBER SOURCE 10/25/2018 ALY Norman Primary ALY [id number] Insurance:AETNA JAMSHIDMERDOB: On License Of [facility] F[place]NY PANDEY [facility] [place]: [id number]ository [place] [address]Eei: Date:0848-40-29CH [address] [place] [address] () [phone]: 10/25/2018 Secondary NOT GIVENUNK Jorge Insurance:SELF PAY [facility] Number: Effective Repository Date:2018-10-24 07/28/2018 ALY Norman Primary ALY Patel [id number] Insurance:AETNA VESTADOB: [facility] Number: [id number], [id number] [place]ository [place] [address]Fwj: Date:6271-82-27LT [id number] [place] [address] () [phone]: 07/28/2018 Secondary NOT GIVENUNK [place] Insurance:SELF PAY [facility] Number: Effective Repository Date:2018-07-28 04/21/2018 ALY Norman Primary ALY Norman Jorge [id number] Insurance:MARCUS HEARDB: Community [facility]: [id number] Hospital MARI GOLDSMITH [id number] [place]ository [place] [address]Umy: Date:2384-11-07HB [address] ) [id number]: 04/21/2018 Secondary NOT GIVENDENITA Patel Insurance:SELF PAY [facility] Number: Effective Repository Date:2018-03-20
== END ==
PROVIDERS: Family Provider Internal Medicine; PCP Internal Medicine; Referring Provider Nurse Practitioner Adult Health; Visit Provider Nurse Practitioner Adult Health
DX: R97.20 Elevated prostate specific antigen [PSA] (principal)
CPT/HCPCS: 36415; 84153

== ENCOUNTER → 2019-03-06 | Outpatient (CLI) | payer MEDICARE, SELFPAY ==
[2017-04-26 09:27] VITALS: BMI 27.2
[2019-03-06 10:20] LABS: PSA,Total- Diagnostic 5.29 ng/mL (0.0-4.0)
== END | disposition home or self-care (01) ==
LOC: LAB 08:34
PROVIDERS: Family Provider Internal Medicine; PCP Internal Medicine; Referring Provider Urology; Visit Provider Urology
DX: R97.20 Elevated prostate specific antigen [PSA] (principal)
CPT/HCPCS: 36415; 84153

== ENCOUNTER → 2019-09-01 08:10 | Outpatient (CLI) | payer MEDICARE, SELFPAY | PROVIDERS: Family Provider Internal Medicine; PCP Internal Medicine; Referring Provider Urology; Visit Provider Urology | DX: R97.20 Elevated prostate specific antigen [PSA] (principal) | CPT/HCPCS: 36415; 84153 ==

== ENCOUNTER → 2020-09-17 | Outpatient (CLI) | payer MEDICARE, SELFPAY ==
[2017-04-26 09:27] VITALS: BMI 27.2
[2020-09-17 09:19] LABS: PSA,Total- Diagnostic 6.44 ng/mL (0.0-4.0)
== END | disposition home or self-care (01) ==
LOC: LAB 08:19
PROVIDERS: PCP Internal Medicine; Referring Provider Urology; Visit Provider Urology
DX: R97.20 Elevated prostate specific antigen [PSA] (principal)
CPT/HCPCS: 36415; 84153

== ENCOUNTER 2021-02-04 09:45 | Outpatient (RCR) | payer MEDICARE, SELFPAY ==
[2017-04-26 09:27] VITALS: BMI 27.2
[2021-02-04] MEDS: COVID-19 VACC, MRNA(PFIZER)/PF 30 MCG/0.3 ML SYRINGE IM (07:50)
[2021-02-25] MEDS: COVID-19 VACC, MRNA(PFIZER)/PF 30 MCG/0.3 ML SYRINGE IM (07:43)
== END 2021-05-06 23:59 ==
LOC: IMMUN 09:45
PROVIDERS: PCP Internal Medicine; Visit Provider Family Medicine
DX: Z23 Encounter for immunization (principal)
CPT/HCPCS: 0001A; 0002A; 91300

== ENCOUNTER → 2021-08-22 | Outpatient (CLI) | payer MEDICARE, SELFPAY | END | disposition home or self-care (01) | LOC: LABSPEC 10:51 | PROVIDERS: PCP Internal Medicine; Visit Provider Physician Assistant Surgical | DX: U07.1 COVID-19 (principal) | CPT/HCPCS: 87635; U0005; U0003 ==

== ENCOUNTER 2021-08-26 15:59 | Outpatient (CLI) | payer MEDICARE, SELFPAY ==
[2021-08-26] MEDS: 0.9% Saline Lock 10 ML Syringe IV (16:47)
[2021-08-26 16:52] VITALS: BP 135/69; PULSE 75; RESP 16; TEMP 37; O2SAT 99; BMI 23.6
[2021-08-26 17:20] VITALS: BP 134/72; PULSE 72; RESP 16; TEMP 36.7; O2SAT 99
[2021-08-26 18:16] VITALS: BP 147/68; PULSE 66; RESP 16; TEMP 36.7; O2SAT 100
== END 2021-08-26 18:22 | disposition home or self-care (01) ==
LOC: MS3OUT 16:00 → MS3 16:01
PROVIDERS: PCP Internal Medicine; Referring Provider Nurse Practitioner Adult Health; Visit Provider Nurse Practitioner Adult Health
DX: Z23 Encounter for immunization (principal); U07.1 COVID-19
CPT/HCPCS: J7050; M0243; A4216; Q0244

== ENCOUNTER → 2021-09-04 09:50 | Outpatient (CLI) | payer MEDICARE, SELFPAY | PROVIDERS: PCP Internal Medicine; Visit Provider Urology | DX: R97.20 Elevated prostate specific antigen [PSA] (principal) | CPT/HCPCS: 36415; 84153 ==

== ENCOUNTER 2021-09-10 06:16 | Day surgery (SDC) | payer MEDICARE, SELFPAY ==
--- NOTE | 2021-09-01 16:22 | EKG12_ITS ---
Test Reason : PRE-OP Blood Pressure : / mmHG Vent. Rate : 063 BPM Atrial Rate : 063 BPM P-R Int : 152 ms QRS Dur : 112 ms QT Int : 418 ms P-R-T Axes : 053 034 034 degrees QTc Int : 427 ms Normal sinus rhythm Normal ECG Confirmed by MARILU AVILEZ, NATHAN ([id number]), technical writer and editor CLARISSA MCGEE ([id number]) on 09/02/2021 7:59:53 AM Referred By: Erich Carlos Confirmed By:NATHAN MICHEL MD
--- NOTE | 2021-09-01 16:33 | RAD_ITS ---
STUDY: X-RAY CHEST REASON FOR EXAM: Male, 76 years old. Preoperative evaluation. TECHNIQUE: Frontal and lateral views of the chest. COMPARISON: None. FINDINGS: Mild hyperexpansion. There is no demonstrated pleural abnormality. Cardiomegaly. Normal mediastinum and obed. Normal visualized pulmonary arteries. Aortic tortuosity. Diffuse thoracic spondylosis. Normal visualized ribs, clavicles, and shoulders. There is no demonstrated abnormality of the visualized soft tissue structures of the upper abdomen. RAD/Chest PA and Lateral IMPRESSION: Cardiomegaly with hyperexpansion and no acute or active cardiopulmonary disease. Electronically Signed: Otoniel Hancock MD at 10:37 EDT , Service support ,
[2021-09-01 17:34] LABS: Absolute Lymphocyte Count 0.68 X10^3/uL (0.83-4.51); Absolute Neutrophil Count 7.6 X10^3/uL (2.0-7.7); Basophil# 0.03 X10^3/uL; Basophil% 0.3 % (0-1); Eosinophil# 0.08 X10^3/uL; Eosinophils% 0.9 % (0-5); Hematocrit 40.2 % (40-54); Hemoglobin 13.5 g/dL (13.0-16.5); Lymphocyte # 0.68 X10^3/ul (0.83-4.51); Lymphocyte % 7.5 % (19-41); Mean Corp Hgb Conc 33.6 g/dL (32-36); Mean Corpuscular Hgb 29.5 pg (27.0-32.0); Mean Platelet Vol. 8.4 fl (6.2-12.0); Monocyte% 6.7 % (0-10); NRBC Flagged by Analyzer 0 % (0-5); Neutrophil # 7.55 X10^3/uL (2.7-7.7); Neutrophil % 83.8 % (47-70); Platelet Count 283 K/mm3 (150-450); RBC Distribution Width SD 41.9 fl (35.1-43.9); Red Blood Count 4.57 M/mm3 (4.6-6.2)
[2021-09-01 18:09] LABS: Anion Gap 6 (5-15); BUN 19 mg/dL (7-18); BUN/Creat Ratio 21.9 RATIO (10-20); Calcium,Total 8.2 mg/dL (8.5-10.1); Chloride 106 mmol/L (98-107); Creatinine, Serum 0.87 mg/dL (0.70-1.30); EST Glomerular Filtration Rate 91 mL/min (>60); Est Glom Filt Rate - Afr Amer 110 mL/min (>60); Glucose 93 mg/dL (74-106); Potassium 3.9 mmol/L (3.5-5.1); Sodium Level 140 mmol/L (136-145)
[2021-09-02 09:33] LABS: Magnesium 2.6 mg/dL (1.6-2.6)
[2021-09-04 11:23] LABS: Albumin, Serum 3.5 g/dL (3.2-5.0)
[2021-09-10] VITALS (11 sets, daily range): BP systolic 88–118; BP diastolic 44–69; PULSE 60–77; RESP 16–18; TEMP 36.2–36.8; O2SAT 95–99; BMI 23.6
[2021-09-10] MEDS: Lactated Ringers 1,000 ML 125 ML IV ×2 (07:10→09:16)
--- NOTE | 2021-09-10 07:17 | OP.PCM_ITS ---
Report of Operation Date of Procedure: 09/10/21 Pre-Operative Diagnosis: Right hip primary osteoarthritis Post-Operative Diagnosis: Right hip primary osteoarthritis Surgery/Procedure Performed:: Right minimally invasive direct anterior total hip replacement Description of Surgical Findings:: Stable hip with equal leg length Surgeon: Castillo Hollingsworth certified prosthetist: Vasiliy Underwood Type of Anesthesia: Spinal Anesthesiologist: Demetrius Teresa Special Medications: 2 g Ancef, 1 g TXA at incision, 1 g TXA closure, 10 mg Decadron, joint cocktail (5 mg Duramorph, 30 mL of 0.5% Ropivicaine, 1000 units of epinephrine, 30 mg of Toradol) Specimen's removed: Bony cuts Estimated Blood Loss (mL): 300 Fluids Replaced: 1500 ml Description of Procedure: Components used: 1. Accolade 2 Sherrill femoral stem size 5 127? 2. Martienz trident 2 acetabular shell size 56 mm 3. Martinez X3 polyethylene F 4. Sherrill Biolox delta 36mm, -5mm femoral head Brief history operative indications: 76 yo M who failed conservative measures for their hip osteoarthritis. X-rays were consistent with osteoarthritis including joint space narrowing, osteophyte formation and subchondral cysts. Total hip replacement was discussed with the patient with risks and benefits including but not limited to blood loss, DVTs, PEs, neurovascular damage, dislocation, general risks of anesthesia including loss of life. Patient demonstrated an understanding medical clearance is obtained the patient was consented for surgery. Procedure: On the date of procedure the patient's right hip was marked in the preoperative area. Patient was then taken back to the operating room where anesthesia assumed control of the C-spine and airway and administered anesthetic. Patient was transferred to the operating table and placed in the supine position. The hips were placed at the break of the bed and a sacral bump was placed. The right lower extremity was then prepped out in a sterile fashion using chlorhexidine while the surgeon scrubbed. The PA was vital in the positioning of the patient. Upon reentering the room the right lower extremity was draped in the standard orthopedic fashion and the incision was marked. A timeout was called and everyone agreed upon the side, the site, the procedure be performed, antibody given, and patient's identity. At this time incision was made through skin, subcutaneous tissue, and fat down to fascia. The fascia was then incised and the TFL was retracted laterally. A retractor was placed on the lateral border of the femoral neck. Attention was directed to the inferior portion of the approach and all crossing vessels were identified and appropriately coagulated. A retractor was then placed on the medial portion of the femoral neck. The anterior capsule was then cleared of all soft tissue and then H shaped capsulotomy was made. The retractors were then placed inside the capsule. The femoral neck was identified and a cleanup cut was made. At this time a power corkscrew was used to remove the femoral head. Attention was then turned toward the acetabulum where the soft tissues were appropriately retracted and the acetabulum was sequentially reamed to 56 mm. A 56 mm cup was then selected and impacted into place. Acetabular liner was impacted into place and locking mechanism was verified. The position of the acetabular cup was then verified under live fluoroscopy. Attention was then turned to the femur. Soft tissue releases on the medial and lateral femoral neck were appropriately done, the leg was externally rotated and lateralized. A Yeung retractor was placed medially and proximally to the greater trochanter this allowed appropriate visualization and exposure of the femoral canal. Rongeour was then used to remove excess lateral bone. A canal finder and entry broach were used to open the proximal canal. Once we verified we were down the femoral canal we subsequently broached up to a size 5 femur. The appropriate neck was placed in the previously selected head was trialed with a -5 mm neck. Traction was pulled and the hip was reduced with internal rotation. Once it was appropriately reduced and stability was checked. There was minimal shuck, equal leg lengths and appropriate stability with hyperextension and external rotation as well as with 90? flexion and internal rotation. Fluoroscopy was then also used to verify the position of the components and leg lengths using the contralateral side for comparison. The trial components were then dislocated the proximal femur was again exposed and the components were removed from the wound. The final components were verified and opened. The wound was copiously irrigated out with normal saline. The acetabulum was checked for any residual debris. The final components were placed and impacted. Traction and internal rotation were again used to reduce the hip. After adequate reduction the hip remained stable with appropriate leg lengths. The final components were once again checked with live fluoroscopy and were found to be satisfactory. The wound was then copiously irrigated with normal saline once more, and hemostasis was obtained. Closure was then done using #1 Vicryl runner to close the fascia. A 2-0 vicryl interuppted sutures were used to close the subcutaneous skin. A 3-0 Monocryl and Steri-Strips were used for final skin closure. A Silverlon dressing was placed. Patient was awakened by anesthesia and transferred to the [facility]. Patient was then transferred to the PACU for recovery. During the course of the procedure the physician chick grader (PE) played a vital role. Their intimate knowledge of my steps in the procedure aided in safe and expedient completion of the procedure. The PE played a vital rolls in positioning particularly in obtaining the appropriate positioning of the sacral bump. The PE was also vital in the retraction of soft tissues during the exposure and especially the femoral work as this is a vital part of the procedure to prevent complications and fractures. The PE was also vital and protecting soft tissues during times of bony cuts and reaming. He also played a vital role in closure with my direct supervision. The PE was also important during reduction and dislocation of the joint and trials intraoperatively. Postoperative plan: Patient will get 24 hours postop antibiotics. Patient will get in-house physica l therapy and will be weight-bear as tolerated. Patient will follow up in office in 2 weeks for a wound check and x-rays. Aspirin 81 mg twice daily. Complications No intraoperative complications Admit VTE Documentation VTE Present on Admission: No VTE Mechan Device Prophylaxis: SCD's and Thigh High RIN Hose VTE Pharm Prophylaxis ordered?: Yes
[2021-09-10] MEDS: Gabapentin 600 MG Tablet PO (07:30)
[2021-09-10] MEDS: Acetaminophen 500 MG Tablet 1000 MG PO (07:30)
[2021-09-10] MEDS: Celecoxib 200 MG Capsule 400 MG PO (07:30)
[2021-09-10] MEDS: Cefazolin 2 GM in 0.9% Normal Saline 100 ML IV (08:39)
--- NOTE | 2021-09-10 09:35 | RAD_ITS ---
STUDY: X-RAY - PELVIS AND RIGHT HIP REASON FOR EXAM: Intraoperative fluoroscopy for right hip arthroplasty. TECHNIQUE: 5 intraoperative images of the pelvis and hip. COMPARISON: None. FINDINGS: There is a right hip arthroplasty without evidence of complication. 5.4 seconds of fluoroscopy time was used. Electronically Signed: Wild Booth MD at 11:30 EDT Tel , Service support , RAD/Hip 1 view with Pelvis
--- NOTE | 2021-09-10 10:35 | RAD_ITS ---
STUDY: X-RAY - PELVIS AND RIGHT HIP REASON FOR EXAM: Postoperative evaluation of right hip arthroplasty. TECHNIQUE: 2 views of the pelvis and hip. COMPARISON: Intraoperative images obtained earlier today. FINDINGS: There is postoperative gas in the soft tissues. Normal bilateral iliac wings, sacroiliac joints and visualized sacrum. Normal bilateral superior and inferior pubic rami. Normal pubic symphysis. Normal bilateral ischial tuberosities. There is a right hip arthroplasty without evidence of complication. RAD/Hip Min 2 Views (Portable) IMPRESSION: Uncomplicated right hip arthroplasty. Electronically Signed: Wild Booth MD at 11:12 EDT Tel , Service support ,
[2021-09-10] MEDS: Lactated Ringers 1,000 ML 999 ML IV (11:26)
--- NOTE | 2021-09-10 13:44 | PCM.TXEXTCAR ---
Diet 09/10/21 07:14 Diet: Clear Liquid Advance to: Regular Wound(s) RIGHT ANTERIOR HIP: Wound Type: Surgical Incision Therapies Weight Bearing: Weight bearing as tolerated (Anterior total hip arthroplasty) Physical Therapy: Eval and Treat Occupational Therapy: Eval and Treat Problem/Diagnosis (1) S/P total right hip arthroplasty: Status: Acute Allergies/Procedures Done in Hospital Allergies No Known Allergies Allergy (Verified 09/10/21 07:38) Type of Care/Length of Stay Estimated LOS: Convalescent Care Less Than 30 days Type of Care Needed: Skilled Rehab Potential: Good Prognosis: Good Additional Orders/Day of Discharge Day of Discharge: 09/10/21 Discharge Plan Admission Attending Provider: Castillo Hollingsworth Primary Care Provider: Juanito Juarez Consulting Providers: Erich Carlos Discharge Orders/Prescriptions Prescriptions: New sennosides-docusate sodium [Stool Softener-Stimulant Laxat] 8.6-50 mg Tablet 2 tab PO BID Qty: 0 RF: 0 tramadol 50 mg Tablet 50 - 100 mg PO Q6H PRN PRN (Reason: Pain Score 4-10) 5 Days Qty: 42 RF: 0 acetaminophen 500 mg Tablet 1,000 mg PO Q8 14 Days Qty: 84 RF: 0 meloxicam 7.5 mg Tablet 7.5 mg PO BID Qty: 60 RF: 0 famotidine 20 mg Tablet 20 mg PO DAILY Qty: 30 RF: 0 aspirin 81 mg Tablet,Chewable 81 mg PO BID Qty: 60 RF: 0 Continued tamsulosin [Flomax] 0.4 mg capsule 0.4 mg PO DAILY RF: 0 atorvastatin [Lipitor] 20 MG tablet 40 mg PO DAILY RF: 0 amlodipine 10 mg tablet 10 mg PO DAILY RF: 0 Discontinued naproxen sodium [Aleve] 220 mg Capsule 220 mg PO BID PRN (Reason: Pain) RF: 0 Referrals / Follow Up: Juanito Juarez MD [Primary Care Provider] - Vasiliy Underwood PA-C [PHYSICIAN CHILD AND FAMILY SERVICES WORKER] - 09/25/21 2:45 pm Disposition Disposition (needs filled in before D/C Order can be placed[facility]
--- NOTE | 2021-09-10 13:45 | DCINST_ITS ---
Discharge Instructions Diet Discharge Diet: No restrictions Activity Discharge Activity: May Not Drive (while taking narcotic pain medications.) May shower in (days): 1 (only if incision is dry and without drainage. Do NOT soak/submerge in tub/pool/otero/stream/hot tub.)) Ice area for (Minutes): 20 (Every 1-2 hours [address] barrier between ice and skin.) Weight Bearing Status: Weight bearing as tolerated Keep extremity elevated above heart level: Operative Extremity Additional Activity Instructions:: Follow [facility] Post-op Instructions. Once postoperative dressing has been removed only use gentle soap and water over the incision. Do not use any ointments, Neosporin, salves, alcohol pads over the incision for 6 weeks postoperatively. Do not submerge underwater for 6 weeks postoperatively. Wear elastic stockings for 2 weeks. No driving for 6 weeks postoperatively Do NOT use alcohol with narcotic pain medication. Do NOT make important decisions while taking narcotic medication. If you have problems with taking your medication (rash, itching, nausea, etc.) call the office at once. Dressing / Incision Call your doctor if your incision/area has: Continuous Slow Oozing, Sudden Increased Bleeding, Increased Pain/ Swelling, Increased Redness and Foul Smelling Discharge Call your doctor if you observe: Fever of 101 or Higher, Shortness of breath, Chest pain, Calf discomfort and Uncontrolled pain Remove Dressing in: 5 days (Okay to remove dressing on September 15, 2021) Follow Up Care Test Results: Test results from this visit will be discussed in further detail at your follow-up appointment, if applicable. Discharge Plan Admission Attending Provider: Castillo Hollingsworth Primary Care Provider: Juanito Juarez Consulting Providers: Erich Carlos Discharge Orders/Prescriptions Prescriptions: New sennosides-docusate sodium [Stool Softener-Stimulant Laxat] 8.6-50 mg Tablet 2 tab PO BID Qty: 0 RF: 0 tramadol 50 mg Tablet 50 - 100 mg PO Q6H PRN PRN (Reason: Pain Score 4-10) 5 Days Qty: 42 RF: 0 acetaminophen 500 mg Tablet 1,000 mg PO Q8 14 Days Qty: 84 RF: 0 meloxicam 7.5 mg Tablet 7.5 mg PO BID Qty: 60 RF: 0 famotidine 20 mg Tablet 20 mg PO DAILY Qty: 30 RF: 0 aspirin 81 mg Tablet,Chewable 81 mg PO BID Qty: 60 RF: 0 Continued tamsulosin [Flomax] 0.4 mg capsule 0.4 mg PO DAILY RF: 0 atorvastatin [Lipitor] 20 MG tablet 40 mg PO DAILY RF: 0 amlodipine 10 mg tablet 10 mg PO DAILY RF: 0 Discontinued naproxen sodium [Aleve] 220 mg Capsule 220 mg PO BID PRN (Reason: Pain) RF: 0 Referrals / Follow Up: Juanito Juarez MD [Primary Care Provider] - Vasiliy Underwood PA-C [PHYSICIAN MVA REACTOR OPERATOR HEAD] - 09/25/21 2:45 pm Disposition Disposition (needs filled in before D/C Order can be placed): [facility]
== END 2021-09-10 14:22 ==
LOC: SDC 06:18 → AC 06:52
PROVIDERS: Anesthesiology; PCP Internal Medicine; Referring Provider Internal Medicine; Visit Provider Specialist
PROC: (CPT 27284; principal; 2021-09-10 08:20)
DX: M16.11 Unilateral primary osteoarthritis, right hip (principal); I10 Essential (primary) hypertension; E78.00 Pure hypercholesterolemia, unspecified; N40.0 Benign prostatic hyperplasia without lower urinary tract symptoms; M19.90 Unspecified osteoarthritis, unspecified site; Z79.899 Other long term (current) drug therapy; Z87.891 Personal history of nicotine dependence
CPT/HCPCS: 01214; 27130; 36415; 71046; 73501; 73502; 76000; 80048; 82040; 83735; 85025; 87077; 87081; 93005; C1776; J7120

== ENCOUNTER 2021-09-10 14:00 | Inpatient (IN) | payer MEDICARE, SELFPAY ==
[2021-09-10 14:22] VITALS: BP 130/72; PULSE 64; RESP 17; TEMP 37.6; O2SAT 97; BMI 23.6
[2021-09-10] MEDS: Senna/Docusate Sodium 1 Tablet 2 TABLET PO (17:10)
[2021-09-10] MEDS: Aspirin 81 MG TAB.CHEW PO (17:10)
[2021-09-10] MEDS: Tamsulosin HCl 0.4 MG Capsule PO (17:10)
[2021-09-10] MEDS: Meloxicam 7.5 MG Tablet PO (17:10)
--- NOTE | 2021-09-10 19:15 | HP.PCM_ITS ---
HPI - General General Date of Admission: 09/10/21 HPI Narrative ALY LEMONS, is a 76 Male with below past medical history who presents with followin08/22/2021 positive covid19, fully vaccinated Pfizer. 08/26/2021 Monoclonal antibody. 09/10/2021 Dr. Hollingsworth performed right minimally invasive direct anterior total hip replacement. 09/10/2021 Admit to TCU with debility, here for rehabilitation, strengthening, prior to discharge home with . 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 Resident needs to be independent prior to return home. He also wants to be able to climb on tractor, and lift 40 to 50 pound sarah of hay. He will need to clear with Dr. Hollingsworth prior to these activities. [facility] Medical History Arthritis Cancer Chronic cough Easy bruising Former smoker Hemorrhoids High cholesterol History of edema Hypertension Prostate disease Wears glasses Home Medications atorvastatin [Lipitor] 40 mg PO DAILY 04/26/17 [History Last Taken 09/09/21 23:00] tamsulosin 0.4 mg capsule 0.4 mg PO DAILY 08/22/21 [History Last Taken 09/08/21 21:00] amlodipine 10 mg PO DAILY 08/26/21 [History Last Taken 09/10/21 05:00] acetaminophen 1,000 mg PO Q8 09/10/21 [History Last Taken Unknown] aspirin 81 mg PO BID 09/10/21 [History Last Taken Unknown] famotidine 20 mg PO DAILY 09/10/21 [History Last Taken Unknown] meloxicam 7.5 mg PO BID 09/10/21 [History Last Taken Unknown] sennosides-docusate sodium [Stool Softener-Stimulant Laxat] 2 tab PO BID 09/10/21 [History Last Taken Unknown] tramadol 50 - 100 mg PO Q6H PRN PRN 5 Days #42 tab 09/10/21 [Rx Last Taken Unknown] Allergy/AdvReac Type Severity Reaction Status Date / Time No Known Allergies Allergy Verified 09/10/21 07:38 Family History Other Cancer Surgical History History of inguinal hernia repair S/P total right hip arthroplasty Social History (Updated 09/10/21 @ 19:[address] Chapin Rios MD) household members: spouse Smoking Status: Former smoker alcohol intake: never substance use type: does not use ROS Constitutional Constitutional: Denies chills, fever(s) or weight gain ENT HEENT: Denies headache(s), nasal congestion or nasal discharge Cardiovascular Cardiovascular: Denies chest pain or palpitations Respiratory/Chest Respiratory/Chest: Denies cough, excessive phlegm production or shortness of breath with exertion Gastrointestinal Gastrointestinal: Denies abdominal pain, nausea or vomiting Genitourinary Genitourinary: Denies dysuria Musculoskeletal Musculoskeletal: Denies joint pain or joint swelling Integumentary Integumentary: Denies rash or wounds Neurologic Neurologic: Denies focal weakness, numbness or tingling Psychiatric Psychiatric: Reports auditory hallucinations; Denies anxiety, depression, homicidal ideation or suicidal ideation Vital Signs Vital Signs Vital Signs: 09/10/21 14:22 Temperature 99.7 F H Temperature Source Temporal Pulse Rate 64 Pulse Rhythm Regular Pulse Strength Normal (2+) Respiratory Rate 17 Respiratory Effort Normal Non-Labored Respiratory Depth Normal Respiratory Pattern Normal Blood Pressure 130/72 H Blood Pressure Mean 91 Blood Pressure Source Monitor Blood Pressure Position Supine Blood Pressure Location Right Arm Pulse Ox 97 Oxygen Delivery Method Nasal Cannula Oxygen Flow Rate (L/min) 2 Weight Weight: 74.843 kg Body Mass Index (BMI) 23.6 Physical Exam Const alert and oriented x3 General Appearance: cooperative HEENT normocephalic Eyes PERRL and EOMs intact bilaterally Neck supple, no JVD and no carotid bruits Resp normal respiratory effort, normal air movement and clear to auscultation bilaterally Cardio regular rate and regular rhythm GI normal to inspection, nondistended, normoactive bowel sounds, non-tender and non-distended Extremity normal capillary refill General Extremity: Negative for edema Skin no rashes or lesions noted General Skin Exam: no breakdown Psych affect normal Appearance: appropriate Assessment & Plan Assessment/Plan (1) Debility: (2) S/P total right hip arthroplasty: (3) COVID-19: (4) Hypertension: (5) Benign prostatic hyperplasia: (6) Osteoarthritis: PLAN: 76 year old male with below past medical history underwent right total hip replacement 09/10/[address] Hollingsworth, admitted to TCU with debility, here for rehabilitation, strengthening, prior to discharge home with . * Debility - PT/OT. * Pain - Tylenol 1000mg Q8H, Tramadol 50-100mg Q6H prn pain (4-10). * Bowel - Miralax 17gm daily, Senna/colace 2 tablets twice daily, Dulcolax 10mg daily prn. * Adult immunization - Administer prevnar 13, pneumovax 23, fluzone, covid19 vaccine as appropriate. * DVT prophylaxis - Aspirin 81mg twice daily thru 10/08/2021. * Hypertension - Amlodipine 10mg daily. * Hyperlipidemia - Atorvastatin 40mg QHS. * Pruritus - Benadryl 25mg bid prn. * GERD - Famotidine 20mg daily. * Osteoarthritis - Meloxicam 7.5mg twice daily. * Nausea - Promethazine 12.5mg Q6H prn. * BPH - Tamsulosin 0.4mg daily.
[2021-09-10] MEDS: Acetaminophen 500 MG Tablet 1000 MG PO (20:27)
[2021-09-10] MEDS: Atorvastatin Calcium 40 MG Tablet PO (20:28)
[2021-09-11] MEDS: Famotidine 20 MG Tablet PO (06:08)
[2021-09-11] MEDS: Polyethylene Glycol 3350 17 GM PACKET PO (06:08)
[2021-09-11] MEDS: Senna/Docusate Sodium 1 Tablet 2 TABLET PO ×2 (06:08→17:37)
[2021-09-11] MEDS: Acetaminophen 500 MG Tablet 1000 MG PO ×3 (06:08→21:14)
[2021-09-11] MEDS: amLODIPine 10 MG Tablet PO (06:08)
[2021-09-11 06:20] LABS: Anion Gap 6 (5-15); BUN 24 mg/dL (7-18); BUN/Creat Ratio 30.9 RATIO (10-20); Calcium,Total 8.1 mg/dL (8.5-10.1); Chloride 109 mmol/L (98-107); Creatinine, Serum 0.78 mg/dL (0.70-1.30); EST Glomerular Filtration Rate 104 mL/min (>60); Est Glom Filt Rate - Afr Amer 125 mL/min (>60); Glucose 100 mg/dL (74-106); Potassium 3.9 mmol/L (3.5-5.1); Sodium Level 141 mmol/L (136-145)
[2021-09-11 07:57] LABS: Absolute Lymphocyte Count 0.61 X10^3/uL (0.83-4.51); Absolute Neutrophil Count 11.5 X10^3/uL (2.0-7.7); Basophil# 0.02 X10^3/uL; Basophil% 0.1 % (0-1); Eosinophil# 0.01 X10^3/uL; Eosinophils% 0.1 % (0-5); Hematocrit 35.5 % (40-54); Hemoglobin 11.9 g/dL (13.0-16.5); Lymphocyte # 0.61 X10^3/ul (0.83-4.51); Lymphocyte % 4.5 % (19-41); Mean Corp Hgb Conc 33.5 g/dL (32-36); Mean Corpuscular Hgb 29.5 pg (27.0-32.0); Mean Corpuscular Volume 87.9 fL (80-94); Mean Platelet Vol. 8.9 fl (6.2-12.0); Monocyte# 1.25 X10^3/uL; Monocyte% 9.3 % (0-10); NRBC Flagged by Analyzer 0 % (0-5); Neutrophil # 11.49 X10^3/uL (2.7-7.7); Neutrophil % 85.5 % (47-70); Platelet Count 231 K/mm3 (150-450); RBC Distribution Width CV 13.2 % (11.6-14.6); RBC Distribution Width SD 42.5 fl (35.1-43.9); Red Blood Count 4.04 M/mm3 (4.6-6.2); White Blood Count 13.5 K/mm3 (4.4-11.0)
[2021-09-11] MEDS: Aspirin 81 MG TAB.CHEW PO ×2 (08:30→17:37)
[2021-09-11] MEDS: Meloxicam 7.5 MG Tablet PO ×2 (08:30→17:37)
[2021-09-11 10:13] VITALS: O2SAT 96
[2021-09-11] MEDS: Tuberculin,Purif.prot.deriv. 50 TU/ML Vial 0.1 ML ID (10:23)
[2021-09-11 11:00] VITALS: BP 127/50; PULSE 63; RESP 18; TEMP 36.3; O2SAT 98
--- NOTE | 2021-09-11 11:46 | CASEMGMT ---
Addendum entered by Cathryn Akhtar 09/11/21 11:52: Social Work Pt is not interested in completing Advance directives at this time but is interested in information. SW explained that SW can assist with documents as inpatient or outpatient. Documents and SW rack card provided to pt. AGNIESZKA Maldonado Original Note: Social Work SW met with pt and completed psychosocial assessment. SW discussed code status with pt and assisted pt in completing MOLST form. Pt wishes are full code with intubation. MOLST form communicated to physician and placed on pt chart. SW explained [employer] benefit and that NRD is 09/15 and continued stay is not guaranteed. Pt plans to return home at time of discharge. 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 Pt will need total independence prior to discharge home. SW to continue to follow. AGNIESZKA Maldonado
[2021-09-11] MEDS: traMADol 50 MG Tablet PO (14:12)
[2021-09-11] MEDS: Tamsulosin HCl 0.4 MG Capsule PO (17:37)
[2021-09-11] MEDS: Atorvastatin Calcium 40 MG Tablet PO (21:14)
[2021-09-12 04:26] VITALS: BP 127/72; PULSE 63; RESP 16; TEMP 36.9; O2SAT 97
[2021-09-12] MEDS: Acetaminophen 500 MG Tablet 1000 MG PO ×3 (04:30→22:12)
[2021-09-12] MEDS: amLODIPine 10 MG Tablet PO (04:30)
[2021-09-12] MEDS: Polyethylene Glycol 3350 17 GM PACKET PO (04:30)
[2021-09-12] MEDS: Senna/Docusate Sodium 1 Tablet 2 TABLET PO ×2 (04:30→17:11)
[2021-09-12] MEDS: traMADol 50 MG Tablet PO (04:31)
[2021-09-12] MEDS: Famotidine 20 MG Tablet PO (04:31)
--- NOTE | 2021-09-12 05:00 | NURSING ---
Patient called nurse to room. Patient complaining of lower abdominal pain. Bowel sounds present but hypoactive. Abdomen firm and distended. Patient asked if he felt like he had to urinate. Patient stated, Yes I keep feeling like i have to go but I am only going a little bit. Bladder scanned >999. Straight cath'd patient via sterile technique. Moderate size blood clot noted. Obtained 1575 mL of urine. Patient states he feels much better. RN aware.
--- NOTE | 2021-09-12 06:20 | NURSING ---
Patient retaining urine overnight, see previous note. Updated Dr. Rios, order for straight cath if bladder scans >300.
[2021-09-12] MEDS: Meloxicam 7.5 MG Tablet PO ×2 (08:02→17:11)
[2021-09-12] MEDS: Aspirin 81 MG TAB.CHEW PO ×2 (08:02→17:10)
[2021-09-12] MEDS: Bisacodyl 5 MG Tablet 10 MG PO (08:07)
--- NOTE | 2021-09-12 08:09 | NURSING ---
prn Dulcolax given.
--- NOTE | 2021-09-12 13:12 | PCM.PN.RX ---
Progress Note - Pharmacy Subjective: [] TCU Admission Objective: Allergies No Known Allergies Allergy (Verified 09/10/21 07:38) Current Medications Generic Name Dose Route Start Last Admin Trade Name Albertq PRN Reason Stop Dose Admin Acetaminophen 1,000 mg 09/10/21 22:00 09/12/21 04:30 Acetaminophen 500 Mg Tablet PO 1,000 mg Q8 JEANINE Administration Amlodipine Besylate 10 mg 09/11/21 06:00 09/12/21 04:30 Amlodipine 10 Mg Tablet PO 10 mg DAILY JEANINE Administration Aspirin 81 mg 09/10/21 18:00 09/12/21 08:02 Aspirin 81 Mg Tab.Chew PO 10/08/21 18:01 81 mg BIDCM JEANINE Administration Atorvastatin Calcium 40 mg 09/10/21 22:00 09/11/21 21:14 Atorvastatin Calcium 40 Mg Tablet PO 40 mg QHS JEANINE Administration Bisacodyl 10 mg 09/10/21 19:26 09/12/21 08:07 Bisacodyl 5 Mg Tablet PO 10 mg DAILY PRN Administration Constipation Diphenhydramine HCl 25 mg 09/10/21 14:42 Diphenhydramine 25 Mg Capsule PO BID PRN PRN ITCHING Famotidine 20 mg 09/11/21 06:00 09/12/21 04:31 Famotidine 20 Mg Tablet PO 10/09/21 06:01 20 mg DAILY JEANINE Administration Meloxicam 7.5 mg 09/10/21 18:00 09/12/21 08:02 Meloxicam 7.5 Mg Tablet PO 7.5 mg BIDCM JEANINE Administration Polyethylene Glycol 17 gm 09/11/21 06:00 09/12/21 04:30 Polyethylene Glycol 3350 17 Gm Packet PO 17 gm DAILY JEANINE Administration Promethazine HCl 12.5 mg 09/10/21 14:43 Promethazine 25 Mg Tablet PO Q6H PRN PRN NAUSEA/VOMITING Senna/Docusate Sodium 2 tablet 09/10/21 18:00 09/12/21 04:30 Senna/Docusate Sodium 1 Tablet PO 2 tablet BID JEANINE Administration Sodium Chloride 10 - 40 ml 09/10/21 19:20 0.9% Saline Lock 10 Ml Syringe IV UD PRN SALINE FLUSH Tamsulosin HCl 0.4 mg 09/10/21 17:30 09/11/21 17:37 Tamsulosin Hcl 0.4 Mg Capsule PO 0.4 mg DAILY@1730 JEANINE Administration Tramadol HCl 50 - 100 mg 09/10/21 14:34 09/12/21 04:31 Tramadol 50 Mg Tablet PO 100 mg Q6H PRN PRN Administration Pain Score 4-10 Tuberculin PPD 0.1 ml 09/18/21 10:00 Tuberculin,Purif.Prot.Deriv. 50 Tu/Ml Vial ID 09/18/21 10:01 X1 ONE Problem List (Last Reviewed 09/10/21 @ 19:[address] Chapin Rios MD) Osteoarthritis (Acute) Benign prostatic hyperplasia (Acute) Hypertension (Chronic) Debility (Acute) S/P total right hip arthroplasty (Acute) COVID-19 (Acute) Vital Signs Temp Pulse Resp BP Pulse Ox 98.4 F 63 16 127/72 H 97 09/12/21 04:26 09/12/21 04:26 09/12/21 04:26 09/12/21 04:26 09/12/21 04:26 Oxygen Flow Rate (L/min) 1 Oxygen Delivery Method Room Air Weight: 74.843 kg Body Mass Index (BMI) 23.6 Sodium 141 mmol/L (136-145) 09/11/21 05:11 Potassium 3.9 mmol/L (3.5-5.1) 09/11/21 05:11 Chloride 109 mmol/L (98-107) H 09/11/21 05:11 Carbon Dioxide 26.0 mmol/L (21.0-32.0) 09/11/21 05:11 Anion Gap 6 (5-15) 09/11/21 05:11 BUN 24 mg/dL (7-18) H 09/11/21 05:11 Creatinine 0.78 mg/dL (0.70-1.30) 09/11/21 05:11 Est GFR (MDRD) Af Amer 125 mL/min (>60) 09/11/21 05:11 Est GFR (MDRD) Non-Af 104 mL/min (>60) 09/11/21 05:11 BUN/Creatinine Ratio 30.9 RATIO (10-20) H 09/11/21 05:11 Glucose 100 mg/dL (74-106) 09/11/21 05:11 Assessment/Plan: 1) Pain: Acetaminophen 1000mg po q8h (scheduled), Tramadol 50-100mg po q6h prn for pain 4-10. Please continue to monitor prn usage and for signs/symptoms of increased/decreased pain. 2) Hypertension: Amlodipine 10mg po daily. Pts average bp is 128/64.7. Please continue to monitor. *3) Hyperlipidemia: Atorvastatin 40mg po qhs. I could not find a recent Lipid Panel or LFT in the pts chart. Please consider a Lipid Panel and LFT while the pt is taking a statin. Thanks 4) GERD: Famotidine 20mg po daily. Please continue to monitor for signs/symptoms of GERD. 5) Pruritus: Diphenhydramine 25mg po bid prn for itching. Please continue to monitor prn usage. --Diphenhydramine is a BEERS List medication. Diphenhydramine has strong anticholinergic properties: dry mouth, constipation, urinary hesitation, confusion. *Please document a risk vs benefit for continued use. Thanks 6) Osteoarthritis: Meloxicam 7.5mg po twice daily. Please continue to monitor signs/symptoms of osteoarthritis 7) BPH: Tamsulosin 0.4mg po daily at 1730. Please continue to monitor for signs/symptom BPH. Psychotropic Medications: none Unnecessary Medications: none Bowel Regimen: Bisacodyl 10mg po daily prn for constipation, Miralax 17gm po daily, Senna/Docusate 2 tablets po bid. Please continue to monitor prn usage and for signs/symptoms of constipation/diarrhea Date of Note:: 09/12/21
--- NOTE | 2021-09-12 14:39 | NURSING ---
PT BLADDER SCAN FOR . PT NOT ABLE TO VOID. RN AND NOTIFIED. NEW ORDER FOR GONZALES.
[2021-09-12 15:37] VITALS: BP 110/53; PULSE 63; RESP 18; TEMP 37.1; O2SAT 95
--- NOTE | 2021-09-12 15:37 | NURSING ---
GONZALES INSERTED WITH A BANDEX END DUE TO PROSTATE PROBLEMS. RN IN ROOM. PT TOLERATED WELL. URINE DRAINING.
--- NOTE | 2021-09-12 16:15 | NURSING ---
PER THERAPY,PT UP AB CHARLES IN ROOM.
[2021-09-12] MEDS: Tamsulosin HCl 0.4 MG Capsule PO (17:10)
[2021-09-12] MEDS: Atorvastatin Calcium 40 MG Tablet PO (22:12)
--- NOTE | 2021-09-12 22:15 | NURSING ---
Pt laying on right side with legs crossed. Instructed pt not to cross legs at knees or ankles to prevent hip location. Offered pillow which would be placed between knees and ankles to support alignment to LEs and pt declines. Laying supine after medications administered and assessment completed.
[2021-09-13 06:24] VITALS: BP 135/71; PULSE 67
[2021-09-13] MEDS: Polyethylene Glycol 3350 17 GM PACKET PO (06:24)
[2021-09-13] MEDS: Senna/Docusate Sodium 1 Tablet 2 TABLET PO ×2 (06:25→17:33)
[2021-09-13] MEDS: amLODIPine 10 MG Tablet PO (06:25)
[2021-09-13] MEDS: Acetaminophen 500 MG Tablet 1000 MG PO ×3 (06:25→21:24)
[2021-09-13] MEDS: Famotidine 20 MG Tablet PO (06:25)
--- NOTE | 2021-09-13 07:53 | NURSING ---
SCDs removed for pt to ambulate to the bathroom. Questioned if RIN hose should be applied. Informed pt if he is going to bathe, should complete that task w/ staff assist in addition to applying RIN hose to maintain hip precautions.
[2021-09-13] MEDS: Meloxicam 7.5 MG Tablet PO ×2 (08:30→17:33)
[2021-09-13] MEDS: Aspirin 81 MG TAB.CHEW PO ×2 (08:30→17:33)
[2021-09-13 12:47] VITALS: BP 126/68; PULSE 64; RESP 16; TEMP 36.6; O2SAT 97
[2021-09-13] MEDS: Tamsulosin HCl 0.4 MG Capsule PO (17:33)
[2021-09-13] MEDS: Atorvastatin Calcium 40 MG Tablet PO (21:24)
[2021-09-14 06:00] VITALS: BP 133/78; PULSE 63; RESP 16; TEMP 36.7; O2SAT 96
[2021-09-14] MEDS: Acetaminophen 500 MG Tablet 1000 MG PO ×3 (06:01→20:44)
[2021-09-14] MEDS: Polyethylene Glycol 3350 17 GM PACKET PO (06:02)
[2021-09-14] MEDS: Famotidine 20 MG Tablet PO (06:02)
[2021-09-14] MEDS: Senna/Docusate Sodium 1 Tablet 2 TABLET PO ×2 (06:02→17:03)
[2021-09-14] MEDS: amLODIPine 10 MG Tablet PO (06:02)
[2021-09-14] MEDS: Meloxicam 7.5 MG Tablet PO ×2 (08:09→17:03)
[2021-09-14] MEDS: Aspirin 81 MG TAB.CHEW PO ×2 (08:09→17:03)
[2021-09-14 13:42] VITALS: BP 103/58; PULSE 69; RESP 16; TEMP 36.6
[2021-09-14] MEDS: Tamsulosin HCl 0.4 MG Capsule PO (17:03)
[2021-09-14] MEDS: Atorvastatin Calcium 40 MG Tablet PO (20:44)
[2021-09-14 20:47] VITALS: PULSE 69; RESP 16; O2SAT 97
[2021-09-15] MEDS: Polyethylene Glycol 3350 17 GM PACKET PO (06:09)
[2021-09-15] MEDS: amLODIPine 10 MG Tablet PO (06:10)
[2021-09-15] MEDS: Famotidine 20 MG Tablet PO (06:10)
[2021-09-15] MEDS: Senna/Docusate Sodium 1 Tablet 2 TABLET PO (06:10)
[2021-09-15] MEDS: Acetaminophen 500 MG Tablet 1000 MG PO ×3 (06:10→22:05)
[2021-09-15 06:14] VITALS: BP 130/73; PULSE 64; RESP 16; TEMP 36.8; O2SAT 98
[2021-09-15] MEDS: Aspirin 81 MG TAB.CHEW PO ×2 (08:30→17:54)
[2021-09-15] MEDS: Meloxicam 7.5 MG Tablet PO ×2 (08:31→17:54)
[2021-09-15] MEDS: traMADol 50 MG Tablet PO (08:33)
[2021-09-15 13:15] VITALS: BP 130/73; PULSE 64; RESP 16; TEMP 36.8; O2SAT 98
[2021-09-15] MEDS: Tamsulosin HCl 0.4 MG Capsule PO (17:55)
[2021-09-15] MEDS: Atorvastatin Calcium 40 MG Tablet PO (22:06)
[2021-09-16] MEDS: Senna/Docusate Sodium 1 Tablet 2 TABLET PO ×2 (05:40→17:36)
[2021-09-16] MEDS: amLODIPine 10 MG Tablet PO (05:40)
[2021-09-16] MEDS: Famotidine 20 MG Tablet PO (05:40)
[2021-09-16] MEDS: Polyethylene Glycol 3350 17 GM PACKET PO (05:40)
[2021-09-16] MEDS: Acetaminophen 500 MG Tablet 1000 MG PO ×3 (05:40→21:30)
[2021-09-16] MEDS: Aspirin 81 MG TAB.CHEW PO ×2 (08:19→17:36)
[2021-09-16] MEDS: Meloxicam 7.5 MG Tablet PO ×2 (08:19→17:36)
[2021-09-16] MEDS: traMADol 50 MG Tablet PO (10:35)
[2021-09-16 14:02] VITALS: BP 109/54; PULSE 69; RESP 17; TEMP 37.2; O2SAT 97
--- NOTE | 2021-09-16 14:17 | CASEMGMT ---
Social Work Insurance issued LCD 09/18, DC 09/19. Spoke with pt and he does not feel ready to DC home yet. Explained appeal rights. Pt would like to appeal. Will continue to follow. JANICE BowdenW
[2021-09-16] MEDS: Tamsulosin HCl 0.4 MG Capsule PO (17:36)
[2021-09-16] MEDS: Atorvastatin Calcium 40 MG Tablet PO (21:30)
[2021-09-17] MEDS: Senna/Docusate Sodium 1 Tablet 2 TABLET PO ×2 (05:45→17:42)
[2021-09-17] MEDS: amLODIPine 10 MG Tablet PO (05:45)
[2021-09-17] MEDS: Acetaminophen 500 MG Tablet 1000 MG PO ×3 (05:45→22:09)
[2021-09-17] MEDS: Famotidine 20 MG Tablet PO (05:45)
[2021-09-17] MEDS: Polyethylene Glycol 3350 17 GM PACKET PO (05:46)
[2021-09-17 05:49] VITALS: BP 132/70; PULSE 62
--- NOTE | 2021-09-17 08:23 | NURSING ---
Jiménez removed at [address] howell. pt tolerated well.
[2021-09-17] MEDS: Aspirin 81 MG TAB.CHEW PO ×2 (08:26→17:41)
[2021-09-17] MEDS: Meloxicam 7.5 MG Tablet PO ×2 (08:26→17:42)
--- NOTE | 2021-09-17 08:37 | NURSING ---
PT COMPLAINED OF ITCHING TO BACK. THIS NURSE SEEN RED RASH ON BACK. WASHED PT BACK OFF AND APPLIED LOTION. PT DID NOT WANT ANYTHING FOR IT AT THIS TIME. WILL CONTINUE TO MONITOR. RN AWARE
--- NOTE | 2021-09-17 09:23 | CASEMGMT ---
Social Work IDT met with patient and for care plan meeting. Discussed patient's progress in therapy and nursing. Pt progressing well. Insurance issued DC 09/19. Pt requested to appeal. Reiterated to complete appeal by noon this date and understands financial liability. Pt is agreeable to pay privately if needed. Discussed HHC vs outpatient therapy. 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 Pt had cath DC'd yesterday. Nursing to continue to monitor. Discussed Palliative services. Pt requested referral. Referral made to [facility]. Will continue to follow to plan DC once received outcome of appeal. JANICE Bowden APPLICATION ANALYST
[2021-09-17 10:20] VITALS: PULSE 75; RESP 18; O2SAT 98
--- NOTE | 2021-09-17 12:59 | CASEMGMT ---
Social Work Received call from [facility] that appeal was filed. Case #[id number]. JANICE BowdenW
--- NOTE | 2021-09-17 15:25 | NURSING ---
Addendum entered by Kay Crawford 09/18/21 09:33: Dr. Carlos's office was called again today to f/u for need of consult. Overlock Sleeve Setter stated Dr. Amaya was aware of consult and will see pt sometime tomorrow. Addendum entered by Lydia Melo 09/17/21 18:36: dr Rios ordered bear to be reinserted on next scan if unable to void and f/u with Dr Carlos. message left for bilingual secretary. Original Note: PT HAS NOT VOIDED FOR 6 HRS. BLADDER SCANNED FOR 744. STRAIGHT CATHED FOR 800. RN AWARE,WILL LET DR. RIOS KNOW.
[2021-09-17 16:00] VITALS: BP 129/67; PULSE 74; RESP 16; TEMP 36.9; O2SAT 99
--- NOTE | 2021-09-17 17:07 | PCM.CONS.P ---
Assessment & Plan Assessment/Plan (1) Debility: (2) Benign prostatic hyperplasia: QUALIFIERS: Lower urinary tract symptom presence: symptoms present Lower urinary tract symptom detail: urinary retention Qualified Code(s): N40.1 - Benign prostatic hyperplasia with lower urinary tract symptoms; R33.8 - Other retention of urine (3) Osteoarthritis: QUALIFIERS: Osteoarthritis location: hip Osteoarthritis type: primary Laterality: right Qualified Code(s): M16.11 - Unilateral primary osteoarthritis, right hip (4) Hypertension: QUALIFIERS: Hypertension type: primary hypertension Qualified Code(s): I10 - Essential (primary) hypertension (5) S/P total right hip arthroplasty: PLAN: 76-year-old male admitted to TCU for rehab status post right hip arthroplasty, seen today for palliative consult at his request, patient would like to know what services are available and to discuss his urinary retention. 1. Debility: He is doing quite well in therapy, possible discharge on Wednesday but he appealed. He will continue therapy as an outpatient. 2. Urinary retention/history of BPH and elevated PSA: Follows with Dr. Carlos. Discussed potential causes of his acute urinary retention. He is asking if his urologist will be coming to the hospital to see him prior to discharge. I did discuss with nurse. He may need an indwelling Jiménez catheter upon discharge, however defer management to urology. Attending has increased Flomax. 3. Osteoarthritis/hypertension: Complicates overall care and management. He is doing quite well and is typically independent at home. Discussed palliative services, patient is not really palliative appropriate as he does not have significant symptoms to manage nor significant comorbidities. Did give him my contact information, he is free to call at anytime if he has further questions or concerns. Thank you for the opportunity to participate in this patient's care, please do not hesitate to contact [facility] with any further questions or concerns. Palliative direct line is [phone]. Greater than 50% of F2F visit dedicated to education and counseling of palliative care services, medications, comorbid conditions and potential assistance with management, and plan of care moving forward. Start time: 1707 End time: 1551 HPI Consult Data Date of Consult: 09/17/21 HPI Narrative HPI Narrative: ALY LEMONS, is a 76 M who presented to [facility] for a right minimally invasive direct anterior total hip replacement 09/10/[address] Hollingsworth. He was then admitted same day to the transitional care for further rehabilitation and strengthening prior to discharge home with his . 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 Patient is seen today for palliative consultation at his request. Patient tested + for COVID-19 08/22/21, he is fully vaccinated with [employer]. He is receiving tramadol 50 to 100 mg every 6 hours as needed for pain and Tylenol 1 g every 8 hours scheduled. He is also on a bowel regimen of MiraLAX 17 g daily, Yvonne-Colace 2 tabs twice a day, and as needed Dulcolax. He also takes meloxicam 7.5 mg twice daily for OA. He is slightly anemic at 11.9, however this is likely postsurgical blood loss. His calcium is mildly low at 8.1. He also has an elevated PSA of 6.5 on 09/04/2021. Reviewed vitals. Patient reports he has a chronically elevated PSA and follows with Dr. Carlos, who is monitoring his levels. Dr. Carlos is not following the patient here on TCU. He states he requested a palliative consultation to see what services could be provided. His main concern is his inability to void on own. He has had several straight caths and indwelling Jiménez catheter with no success. The Jiménez was removed today, he still is unable to void. No N/V/D. Bowels are moving okay. His right hip pain from surgery is controlled with current medications. No abdominal or pelvic pain. No dizziness or syncope. No numbness or tingling. No cough or shortness of breath. No chest pain. Patient reports he is typically very active at home. Nursing tells me there is a tentative discharge for this Wednesday, patient has appealed to insurance. [facility] Medical History Arthritis Cancer Chronic cough Easy bruising Former smoker Hemorrhoids High cholesterol History of edema Hypertension Prostate disease Wears glasses Home Medications atorvastatin [Lipitor] 40 mg PO DAILY 04/26/17 [History Last Taken 09/09/21 23:00] tamsulosin 0.4 mg capsule 0.4 mg PO DAILY 08/22/21 [History Last Taken 09/08/21 21:00] amlodipine 10 mg PO DAILY 08/26/21 [History Last Taken 09/10/21 05:00] acetaminophen 1,000 mg PO Q8 09/10/21 [History Last Taken Unknown] aspirin 81 mg PO BID 09/10/21 [History Last Taken Unknown] famotidine 20 mg PO DAILY 09/10/21 [History Last Taken Unknown] meloxicam 7.5 mg PO BID 09/10/21 [History Last Taken Unknown] sennosides-docusate sodium [Stool Softener-Stimulant Laxat] 2 tab PO BID 09/10/21 [History Last Taken Unknown] tramadol 50 - 100 mg PO Q6H PRN PRN 5 Days #42 tab 09/10/21 [Rx Last Taken Unknown] Allergy/AdvReac Type Severity Reaction Status Date / Time No Known Allergies Allergy Verified 09/10/21 07:38 Family History Other Cancer Surgical History History of inguinal hernia repair S/P total right hip arthroplasty Social History household members: spouse Smoking Status: Former smoker alcohol intake: never substance use type: does not use ROS ROS Narrative Review of systems otherwise negative from a constitutional, HEENT, respiratory, cardiovascular, GI, genitourinary, musculoskeletal, skin, neurologic, psychiatric and hematologic system unless stated above. Physical Exam Const alert, oriented x3 and no apparent distress General Appearance: cooperative and comfortable HEENT normocephalic and head/scalp atraumatic Eyes General Eye: normal appearance of both eyes Neck supple General: trachea midline Lymph Lymphatic: no lymphadenopathy noted Resp normal respiratory effort Effort and Inspection: able to speak in complete sentences and symmetric chest movement Auscultation: clear to auscultation bilaterally; Negative for rales, rhonchi or wheezes Cardio regular rate, regular rhythm, S1 normal heart sound and S2 normal heart sound GI normal to inspection, nondistended, normoactive bowel sounds Extremity no clubbing, cyanosis or edema Right Lower Extremity: hip joint other (Mildly tender. Some mild edema. Incision intact) Skin no rashes or lesions noted Neuro CN's II-XII intact bilaterally and no focal motor deficits Psych mental status grossly normal
[2021-09-17] MEDS: Tamsulosin HCl 0.4 MG Capsule 0.8 MG PO (17:42)
[2021-09-17] MEDS: Atorvastatin Calcium 40 MG Tablet PO (22:09)
--- NOTE | 2021-09-17 22:14 | NURSING ---
Patient bladder scanned at >727mL. 16F coude bear inserted with 10cc saline into balloon. Sterile techniques used. Patient tolerated well.
[2021-09-18] MEDS: Polyethylene Glycol 3350 17 GM PACKET PO (05:15)
[2021-09-18] MEDS: Senna/Docusate Sodium 1 Tablet 2 TABLET PO ×2 (05:16→17:45)
[2021-09-18] MEDS: Famotidine 20 MG Tablet PO (05:16)
[2021-09-18] MEDS: Acetaminophen 500 MG Tablet 1000 MG PO ×3 (05:16→21:16)
[2021-09-18] MEDS: amLODIPine 10 MG Tablet PO (05:16)
[2021-09-18 05:18] VITALS: BP 135/73; PULSE 65
[2021-09-18 05:43] LABS: Absolute Lymphocyte Count 0.57 X10^3/uL (0.83-4.51); Absolute Neutrophil Count 4.7 X10^3/uL (2.0-7.7); Basophil# 0.04 X10^3/uL; Basophil% 0.6 % (0-1); Eosinophil# 0.15 X10^3/uL; Eosinophils% 2.4 % (0-5); Hematocrit 34.9 % (40-54); Hemoglobin 11.6 g/dL (13.0-16.5); Lymphocyte # 0.57 X10^3/ul (0.83-4.51); Lymphocyte % 9.2 % (19-41); Mean Corp Hgb Conc 33.2 g/dL (32-36); Mean Corpuscular Hgb 29.4 pg (27.0-32.0); Mean Corpuscular Volume 88.6 fL (80-94); Mean Platelet Vol. 8.4 fl (6.2-12.0); Monocyte# 0.67 X10^3/uL; Monocyte% 10.8 % (0-10); NRBC Flagged by Analyzer 0 % (0-5); Neutrophil # 4.69 X10^3/uL (2.7-7.7); Neutrophil % 75.6 % (47-70); POSITIVE DIFFERENTIAL YES; Platelet Count 206 K/mm3 (150-450); RBC Distribution Width CV 13.3 % (11.6-14.6); Red Blood Count 3.94 M/mm3 (4.6-6.2); White Blood Count 6.2 K/mm3 (4.4-11.0)
[2021-09-18 05:49] LABS: Differential Indicated SCAN CRITERIA MET
[2021-09-18 06:29] LABS: Anion Gap 4 (5-15); BUN 21 mg/dL (7-18); BUN/Creat Ratio 29.9 RATIO (10-20); Chloride 109 mmol/L (98-107); EST Glomerular Filtration Rate 116 mL/min (>60); Est Glom Filt Rate - Afr Amer 141 mL/min (>60); Glucose 93 mg/dL (74-106); Potassium 4.4 mmol/L (3.5-5.1); Sodium Level 141 mmol/L (136-145)
[2021-09-18] MEDS: Aspirin 81 MG TAB.CHEW PO ×2 (08:14→17:45)
[2021-09-18] MEDS: Meloxicam 7.5 MG Tablet PO ×2 (08:14→17:45)
[2021-09-18] MEDS: Tuberculin,Purif.prot.deriv. 50 TU/ML Vial 0.1 ML ID (10:54)
[2021-09-18 15:14] VITALS: BP 121/60; PULSE 77; RESP 18; TEMP 36.9; O2SAT 97
--- NOTE | 2021-09-18 15:45 | CASEMGMT ---
Social Work Phone call from [facility] and pt appeal is denied. SW met with pt and informed. Pt also spoke with [facility] and was aware of denial of appeal. Pt choosing to remain in the facility private pay. Pt made aware of payment system and that pt would set discharge date when he felt ready to d/c. Staff updated. AGNIESZKA Maldonado
[2021-09-18] MEDS: Tamsulosin HCl 0.4 MG Capsule 0.8 MG PO (17:45)
[2021-09-18] MEDS: Atorvastatin Calcium 40 MG Tablet PO (21:17)
[2021-09-19] MEDS: Polyethylene Glycol 3350 17 GM PACKET PO (05:50)
[2021-09-19] MEDS: Senna/Docusate Sodium 1 Tablet 2 TABLET PO ×2 (05:51→17:29)
[2021-09-19] MEDS: Acetaminophen 500 MG Tablet 1000 MG PO ×3 (05:51→21:52)
[2021-09-19] MEDS: Famotidine 20 MG Tablet PO (05:51)
[2021-09-19] MEDS: amLODIPine 10 MG Tablet PO (05:51)
[2021-09-19] MEDS: Meloxicam 7.5 MG Tablet PO ×2 (08:14→17:29)
[2021-09-19] MEDS: Aspirin 81 MG TAB.CHEW PO ×2 (08:14→17:29)
[2021-09-19 15:14] VITALS: BP 132/71; PULSE 75; RESP 16; TEMP 37.2; O2SAT 96
[2021-09-19] MEDS: Tamsulosin HCl 0.4 MG Capsule 0.8 MG PO (17:29)
[2021-09-19] MEDS: Atorvastatin Calcium 40 MG Tablet PO (21:52)
[2021-09-20] MEDS: Polyethylene Glycol 3350 17 GM PACKET PO (05:50)
[2021-09-20] MEDS: Famotidine 20 MG Tablet PO (05:50)
[2021-09-20] MEDS: Senna/Docusate Sodium 1 Tablet 2 TABLET PO ×2 (05:50→17:23)
[2021-09-20] MEDS: amLODIPine 10 MG Tablet PO (05:50)
[2021-09-20] MEDS: Acetaminophen 500 MG Tablet 1000 MG PO ×3 (05:50→21:20)
[2021-09-20] MEDS: traMADol 50 MG Tablet PO (08:46)
[2021-09-20] MEDS: Aspirin 81 MG TAB.CHEW PO ×2 (08:46→17:22)
[2021-09-20] MEDS: Meloxicam 7.5 MG Tablet PO ×2 (08:46→17:22)
--- NOTE | 2021-09-20 09:22 | NURSING ---
Dr Carlos here to see pt regarding urinary retention.
--- NOTE | 2021-09-20 09:35 | PCM.CONS.U ---
Assessment & Plan Assessment/Plan (1) Benign prostatic hyperplasia: QUALIFIERS: Lower urinary tract symptom presence: symptoms present Lower urinary tract symptom detail: urinary retention Qualified Code(s): N40.1 - Benign prostatic hyperplasia with lower urinary tract symptoms; R33.8 - Other retention of urine HPI Consult Data Date of Consult: 09/20/21 HPI Narrative HPI Narrative: 76-year-old male underwent a hip replacement and afterwards was not able to urinate getting stronger and had a Jiménez catheter placed he is currently in rehab for discharge to home soon. He is on Flomax double dose which is appropriate he is tolerating that dose to help. He does have a history of BPH with obstruction and obstructive urinary symptoms in the past with offered him some procedures but he had declined surgical procedure in the past, at this point he has a catheter in place and he is on Flomax 0.4 mg twice daily I would also add Avodart 0.5 mg daily, I think we can do another voiding trial on Wednesday but if he still cannot urinate then he will need to go home with a catheter and see him in the office for cystoscopy and possible surgical planning for TURP if he still not able to urinate. [facility] Medical History Arthritis Cancer Chronic cough Easy bruising Former smoker Hemorrhoids High cholesterol History of edema Hypertension Prostate disease Wears glasses Home Medications atorvastatin [Lipitor] 40 mg PO DAILY 04/26/17 [History Last Taken 09/09/21 23:00] tamsulosin 0.4 mg capsule 0.4 mg PO DAILY 08/22/21 [History Last Taken 09/08/21 21:00] amlodipine 10 mg PO DAILY 08/26/21 [History Last Taken 09/10/21 05:00] acetaminophen 1,000 mg PO Q8 09/10/21 [History Last Taken Unknown] aspirin 81 mg PO BID 09/10/21 [History Last Taken Unknown] famotidine 20 mg PO DAILY 09/10/21 [History Last Taken Unknown] meloxicam 7.5 mg PO BID 09/10/21 [History Last Taken Unknown] sennosides-docusate sodium [Stool Softener-Stimulant Laxat] 2 tab PO BID 09/10/21 [History Last Taken Unknown] tramadol 50 - 100 mg PO Q6H PRN PRN 5 Days #42 tab 09/10/21 [Rx Last Taken Unknown] Allergy/AdvReac Type Severity Reaction Status Date / Time No Known Allergies Allergy Verified 09/10/21 07:38 Family History Other Cancer Surgical History History of inguinal hernia repair S/P total right hip arthroplasty Social History household members: spouse Smoking Status: Former smoker alcohol intake: never substance use type: does not use ROS Constitutional Constitutional: Denies chills, fever(s) or malaise Eyes Eyes: Denies blurry vision or change in vision ENT HEENT: Reports none Cardiovascular Cardiovascular: Denies chest pain or palpitations Respiratory/Chest Respiratory/Chest: Denies cough or shortness of breath with exertion Gastrointestinal Gastrointestinal: Denies abdominal pain, constipation or diarrhea Musculoskeletal Musculoskeletal: Denies back pain, joint stiffness or joint swelling Integumentary Integumentary: Denies dry skin, jaundice, lesions or rash Neurologic Neurologic: Denies confusion, syncope or weakness Psychiatric Psychiatric: Reports none; Denies anxiety or depression Endocrine Endocrinology: Denies excessive sweating, fatigue or flushing Hematologic/Lymphatic Hematologic/Lymphatic: Denies anemia, easy bleeding or easy bruising Physical Exam Const alert and oriented x3 General Appearance: cooperative HEENT normocephalic and head/scalp atraumatic Eyes PERRL and EOMs intact bilaterally Neck supple, no JVD and no carotid bruits Resp normal respiratory effort, normal air movement and clear to auscultation bilaterally Cardio regular rate and no murmurs GI normal to inspection, nondistended, normoactive bowel sounds and soft to palpation Extremity normal capillary refill General Extremity: no tenderness to palpation of joints or extremities; Negative for edema Skin no rashes or lesions noted and no wounds General Skin Exam: no breakdown Neuro CN's II-XII intact bilaterally Psych affect normal Appearance: appropriate Lab / Micro Data Result Diagrams: 09/18/21 05:11 09/18/21 05:11
--- NOTE | 2021-09-20 11:00 | NURSING ---
PER ORDERS,GONZALES TO BE REMOVED ON WEDNESDAY,09/22/21. PROSCAR STARTED TODAY. RN AWARE.
[2021-09-20] MEDS: Finasteride 5 MG Tablet PO (12:17)
[2021-09-20 16:00] VITALS: BP 110/56; PULSE 63; RESP 14; TEMP 36.3; O2SAT 97
[2021-09-20] MEDS: Tamsulosin HCl 0.4 MG Capsule 0.8 MG PO (17:23)
[2021-09-20] MEDS: Atorvastatin Calcium 40 MG Tablet PO (21:20)
[2021-09-21 06:30] VITALS: BP 131/68; PULSE 65
[2021-09-21] MEDS: Polyethylene Glycol 3350 17 GM PACKET PO (06:33)
[2021-09-21] MEDS: Senna/Docusate Sodium 1 Tablet 2 TABLET PO ×2 (06:33→17:27)
[2021-09-21] MEDS: Acetaminophen 500 MG Tablet 1000 MG PO ×3 (06:33→21:25)
[2021-09-21] MEDS: amLODIPine 10 MG Tablet PO (06:33)
[2021-09-21] MEDS: Famotidine 20 MG Tablet PO (06:33)
[2021-09-21] MEDS: Finasteride 5 MG Tablet PO (06:34)
[2021-09-21] MEDS: Meloxicam 7.5 MG Tablet PO ×2 (08:23→17:27)
[2021-09-21] MEDS: Aspirin 81 MG TAB.CHEW PO ×2 (08:23→17:26)
[2021-09-21 10:15] VITALS: PULSE 70; RESP 18; O2SAT 98
[2021-09-21 15:50] VITALS: BP 134/69; PULSE 77; RESP 16; TEMP 37; O2SAT 97
[2021-09-21] MEDS: Tamsulosin HCl 0.4 MG Capsule 0.8 MG PO (17:26)
[2021-09-21] MEDS: Atorvastatin Calcium 40 MG Tablet PO (21:25)
[2021-09-22] MEDS: Polyethylene Glycol 3350 17 GM PACKET PO (06:43)
[2021-09-22 06:45] VITALS: BP 144/73; PULSE 64
[2021-09-22] MEDS: Senna/Docusate Sodium 1 Tablet 2 TABLET PO ×2 (06:47→17:22)
[2021-09-22] MEDS: Famotidine 20 MG Tablet PO (06:47)
[2021-09-22] MEDS: amLODIPine 10 MG Tablet PO (06:47)
[2021-09-22] MEDS: Acetaminophen 500 MG Tablet 1000 MG PO ×3 (06:48→21:07)
[2021-09-22] MEDS: Finasteride 5 MG Tablet PO (06:48)
[2021-09-22] MEDS: Aspirin 81 MG TAB.CHEW PO ×2 (07:55→17:21)
[2021-09-22] MEDS: Meloxicam 7.5 MG Tablet PO ×2 (07:55→17:21)
--- NOTE | 2021-09-22 11:13 | NURSING ---
Pt unable to void since catheter pulled this morning, Bladderscan shows 439 at this time, pt does not want catheter replaced, he wants to wait a little longer to see if he can void.
--- NOTE | 2021-09-22 12:19 | MDS.RN ---
Information for the mds was obtained from review of the clinical record, interview of resident, staff, and direct observation of resident's care.
--- NOTE | 2021-09-22 15:21 | NURSING ---
Pt still unable to void after 8 hours of bear being d/c, bear catheter reinserted.
[2021-09-22 16:00] VITALS: BP 129/63; PULSE 69; RESP 18; TEMP 37.1; O2SAT 97
[2021-09-22] MEDS: Tamsulosin HCl 0.4 MG Capsule 0.8 MG PO (17:21)
[2021-09-22] MEDS: Atorvastatin Calcium 40 MG Tablet PO (21:07)
[2021-09-23] MEDS: amLODIPine 10 MG Tablet PO (05:58)
[2021-09-23] MEDS: Senna/Docusate Sodium 1 Tablet 2 TABLET PO ×2 (05:58→17:39)
[2021-09-23] MEDS: Polyethylene Glycol 3350 17 GM PACKET PO (05:58)
[2021-09-23] MEDS: Famotidine 20 MG Tablet PO (05:58)
[2021-09-23] MEDS: Acetaminophen 500 MG Tablet 1000 MG PO ×3 (05:58→20:44)
[2021-09-23] MEDS: Finasteride 5 MG Tablet PO (05:58)
[2021-09-23 06:02] VITALS: BP 128/64; PULSE 65
[2021-09-23] MEDS: Aspirin 81 MG TAB.CHEW PO ×2 (08:35→17:38)
[2021-09-23] MEDS: Meloxicam 7.5 MG Tablet PO ×2 (08:35→17:38)
[2021-09-23 10:00] VITALS: PULSE 70; RESP 18; O2SAT 98
[2021-09-23 14:18] VITALS: BP 116/57; PULSE 78; RESP 18; TEMP 36.8; O2SAT 96
--- NOTE | 2021-09-23 16:38 | CASEMGMT ---
Social Work Followed up with pt on DC plans. Pt requesting medical information that was submitted to insurance and [email or web address]. Provided medical records phone number. Pt still unsure of DC. Explained Dr. Carlos stated he will complete the procedure once pt is in the community, so pt would be discharging home with the cath. Pt would like to talk with about possibly setting DC 09/25. Pt requesting FWW. Referral to be made to [facility] [place], [place]. Pt can continue with HEP. Pt will notify SW of DC date. Will continue to follow. Justina Weir, POWER PLANT MANAGER DIRECTOR SALES SUPPORT
--- NOTE | 2021-09-23 17:36 | NURSING ---
PT REQUESTING LEG BAG WHEN GOING HOME WITH CATHETER.
[2021-09-23] MEDS: Tamsulosin HCl 0.4 MG Capsule 0.8 MG PO (17:38)
--- NOTE | 2021-09-23 19:23 | PCM.DC.SUM ---
Providers Date of Admission: 09/10/21 Primary Care Physician: Dr. Juanito Juarez MD Consultations 09/18/21 09:29 Consult: Urology Routine Consulting Provider: Erich Carlos Reason for Consult: Retention of urine EMERGENT Consult: No MD Notified: Yes Date Notified: 09/18/21 Time Notified: 09:29 Method of Notification: Verbal Reason For Visit: RIGHT TOTAL HIP ARTHROPLASTY Diagnosis Discharge Diagnosis (1) Benign prostatic hyperplasia: Status: Acute Code(s): N40.0 - Benign prostatic hyperplasia without lower urinary tract symptoms Qualifiers: Lower urinary tract symptom presence: symptoms present Lower urinary tract symptom detail: urinary retention Qualified Code(s): N40.1 - Benign prostatic hyperplasia with lower urinary tract symptoms; R33.8 - Other retention of urine Medications at Discharge Home Medications atorvastatin [Lipitor] 40 mg PO DAILY 04/26/17 amlodipine 10 mg PO DAILY 08/26/21 acetaminophen 1,000 mg PO Q8 09/10/21 aspirin 81 mg PO BID 09/10/21 famotidine 20 mg PO DAILY 30 Days #30 tab 09/23/21 finasteride 5 mg PO DAILY 30 Days #30 tab 09/23/21 meloxicam 7.5 mg PO BID 30 Days #60 tab 09/23/21 sennosides-docusate sodium [Stool Softener-Stimulant Laxat] 2 tab PO BID 30 Days #120 tab 09/23/21 tamsulosin 0.8 mg PO DAILY@1730 30 Days #60 cap 09/23/21 Hospital Course Operations total hip replacement (Right.) Procedures None Summary of Care Provided Minutes Spent on Discharge: 35 Hospital Course: 76 year old male with below past medical history underwent right total hip replacement 09/10/[address] Hollingsworth, admitted to TCU with debility, here for rehabilitation, strengthening, prior to discharge home with . Discharge home with 09/25/2021, [employer] Front Wheeled Walker. Resident has urinary retention, failed voiding trials, discharge with indwelling bear catheter, follow up with Dr. Carlos as outpatient. Physical Exam Const alert and oriented x3 General Appearance: cooperative HEENT normocephalic Eyes PERRL and EOMs intact bilaterally Neck supple, no JVD and no carotid bruits Resp normal respiratory effort, normal air movement and clear to auscultation bilaterally Cardio regular rate and regular rhythm GI normal to inspection, nondistended, normoactive bowel sounds, non-tender and non-distended Extremity normal capillary refill General Extremity: Negative for edema Skin no rashes or lesions noted General Skin Exam: no breakdown Psych affect normal Appearance: appropriate Weight / BMI Weight Weight: 78.018 kg Body Mass Index (BMI) 23.6 ABG / Lab / Microbiology Data Result Diagrams: 09/18/21 05:11 09/18/21 05:11 D/C Instructions Discharge Diet: No restrictions Discharge Activity: Return to Normal Activity, May Shower and Use Walker Weight Bearing Status: Weight bearing as tolerated Call your doctor if you observe: Fever of 101 or Higher, Inability to urinate, Inability to have a bowel movement, Shortness of breath, Dizziness, Fainting spells, Swelling in the ankles, Chest pain and Uncontrolled pain Additional Instructions: Discharge home with 09/25/2021, [employer] Front Wheeled Walker. Resident has urinary retention, failed voiding trials, discharge with indwelling bear catheter, follow up with Dr. Carlos as outpatient. Please Follow Up With: Vasiliy HARDY When: As scheduled. Meaningful Use Info Meaningful Use Diagnoses (Choose all that apply): None applicable Discharge Plan Admission Admit Date/Time: 09/10/21 14:00 Primary Reason for Your Visit: Debility. Attending Provider: Chapin Rios Chi Primary Care Provider: Juanito Juarez Consulting Providers: Erich Carlos Instructions Additional Instructions / Restrictions: Discharge home with 09/25/2021, [employer] Front Wheeled Walker. Resident has urinary retention, failed voiding trials, discharge with indwelling bear catheter, follow up with Dr. Carlos as outpatient. Discharge Orders/Prescriptions Prescriptions: New tamsulosin 0.4 mg Capsule 0.8 mg PO DAILY@1730 30 Days Qty: 60 RF: 0 finasteride 5 mg Tablet 5 mg PO DAILY 30 Days Qty: 30 RF: 0 Continued atorvastatin [Lipitor] 20 MG tablet 40 mg PO DAILY RF: 0 amlodipine 10 mg tablet 10 mg PO DAILY RF: 0 acetaminophen 500 mg tablet 1,000 mg PO Q8 RF: 0 aspirin 81 mg tablet,chewable 81 mg PO BID RF: 0 sennosides-docusate sodium [Stool Softener-Stimulant Laxat] 8.6-50 mg tablet 2 tab PO BID 30 Days Qty: 120 RF: 0 meloxicam 7.5 mg tablet 7.5 mg PO BID 30 Days Qty: 60 RF: 0 famotidine 20 mg tablet 20 mg PO DAILY 30 Days Qty: 30 RF: 0 Discontinued tamsulosin [Flomax] 0.4 mg capsule 0.4 mg PO DAILY RF: 0 tramadol 50 mg Tablet 50 - 100 mg PO Q6H PRN PRN (Reason: Pain Score 4-10) 5 Days Qty: 42 RF: 0 Referrals / Follow Up: Juanito Juarez MD [Primary Care Provider] - Disposition Disposition (needs filled in before D/C Order can be placed): Home, Self Care
[2021-09-23] MEDS: Atorvastatin Calcium 40 MG Tablet PO (20:44)
[2021-09-24] MEDS: Finasteride 5 MG Tablet PO (06:08)
[2021-09-24] MEDS: Famotidine 20 MG Tablet PO (06:09)
[2021-09-24] MEDS: Senna/Docusate Sodium 1 Tablet 2 TABLET PO ×2 (06:09→17:09)
[2021-09-24] MEDS: Acetaminophen 500 MG Tablet 1000 MG PO ×3 (06:09→21:51)
[2021-09-24] MEDS: amLODIPine 10 MG Tablet PO (06:09)
[2021-09-24] MEDS: Polyethylene Glycol 3350 17 GM PACKET PO (06:09)
[2021-09-24 06:12] VITALS: BP 133/76; PULSE 67; RESP 16; TEMP 36.2; O2SAT 99
[2021-09-24] MEDS: Aspirin 81 MG TAB.CHEW PO ×2 (08:13→17:09)
[2021-09-24] MEDS: Meloxicam 7.5 MG Tablet PO ×2 (08:13→17:09)
--- NOTE | 2021-09-24 09:37 | CASEMGMT ---
Social Work Followed up with pt on DC. Pt confirmed DC 09/25 with HEP, but requesting [facility] for new cath. Pt requesting [facility]. Referral made for SN. Faxed referral to [facility] [place] for FWW. to transport. Plan: DC home with 09/25, [facility] SN, FWW Justina Weir, SALES EXEC BABY COUNSELOR
--- NOTE | 2021-09-24 13:25 | NURSING ---
Pt educated on emptying catheter bag, pt demonstrated proper technique for emptying bag, questions were answered and pt verbalized understanding.
[2021-09-24] MEDS: Tamsulosin HCl 0.4 MG Capsule 0.8 MG PO (17:09)
[2021-09-24 21:29] VITALS: PULSE 72; RESP 16; O2SAT 98
[2021-09-24] MEDS: Atorvastatin Calcium 40 MG Tablet PO (21:51)
[2021-09-25] MEDS: Finasteride 5 MG Tablet PO (05:57)
[2021-09-25] MEDS: Polyethylene Glycol 3350 17 GM PACKET PO (05:57)
[2021-09-25] MEDS: Famotidine 20 MG Tablet PO (05:57)
[2021-09-25] MEDS: Acetaminophen 500 MG Tablet 1000 MG PO ×2 (05:57→13:17)
[2021-09-25] MEDS: amLODIPine 10 MG Tablet PO (05:57)
[2021-09-25] MEDS: Senna/Docusate Sodium 1 Tablet 2 TABLET PO (05:57)
[2021-09-25 06:06] LABS: Absolute Lymphocyte Count 0.56 X10^3/uL (0.83-4.51); Absolute Neutrophil Count 5.5 X10^3/uL (2.0-7.7); Basophil# 0.05 X10^3/uL; Basophil% 0.7 % (0-1); Eosinophil# 0.32 X10^3/uL; Eosinophils% 4.4 % (0-5); Hematocrit 34.9 % (40-54); Hemoglobin 11.7 g/dL (13.0-16.5); Lymphocyte # 0.56 X10^3/ul (0.83-4.51); Lymphocyte % 7.7 % (19-41); Mean Corp Hgb Conc 33.5 g/dL (32-36); Mean Corpuscular Hgb 29.5 pg (27.0-32.0); Mean Corpuscular Volume 88.1 fL (80-94); Mean Platelet Vol. 8.2 fl (6.2-12.0); Monocyte# 0.72 X10^3/uL; NRBC Flagged by Analyzer 0 % (0-5); Neutrophil # 5.51 X10^3/uL (2.7-7.7); Neutrophil % 76.2 % (47-70); POSITIVE DIFFERENTIAL YES; Platelet Count 204 K/mm3 (150-450); RBC Distribution Width SD 45.1 fl (35.1-43.9); Red Blood Count 3.96 M/mm3 (4.6-6.2); White Blood Count 7.2 K/mm3 (4.4-11.0)
[2021-09-25 06:13] LABS: Differential Indicated SCAN CRITERIA MET
[2021-09-25 06:25] LABS: Differential Comment SCANNED
[2021-09-25 06:29] LABS: Anion Gap 4 (5-15); BUN 21 mg/dL (7-18); BUN/Creat Ratio 28.5 RATIO (10-20); Calcium,Total 8.3 mg/dL (8.5-10.1); Chloride 109 mmol/L (98-107); Creatinine, Serum 0.74 mg/dL (0.70-1.30); EST Glomerular Filtration Rate 110 mL/min (>60); Est Glom Filt Rate - Afr Amer 133 mL/min (>60); Glucose 90 mg/dL (74-106); Potassium 4.4 mmol/L (3.5-5.1); Sodium Level 142 mmol/L (136-145)
[2021-09-25] MEDS: Meloxicam 7.5 MG Tablet PO (08:26)
[2021-09-25] MEDS: Aspirin 81 MG TAB.CHEW PO (08:26)
[2021-09-25 10:30] VITALS: PULSE 72; RESP 18; O2SAT 97
[2021-09-25 13:22] VITALS: BP 125/66; PULSE 70; RESP 18; TEMP 37.1; O2SAT 97
== END 2021-09-11 14:00 | disposition home health service (06) | DRG 561 ==
PROVIDERS: Admitting Provider Family Medicine Geriatric Medicine; PCP Internal Medicine; Visit Provider Family Medicine Geriatric Medicine
DX: Z47.1 Aftercare following joint replacement surgery (principal); Z96.641 Presence of right artificial hip joint; I10 Essential (primary) hypertension; Z23 Encounter for immunization; R33.9 Retention of urine, unspecified; N40.1 Benign prostatic hyperplasia with lower urinary tract symptoms; K21.9 Gastro-esophageal reflux disease without esophagitis; E78.5 Hyperlipidemia, unspecified; M19.90 Unspecified osteoarthritis, unspecified site; Z86.16 Personal history of COVID-19; Z87.891 Personal history of nicotine dependence; Z79.899 Other long term (current) drug therapy; Z79.82 Long term (current) use of aspirin
CPT/HCPCS: 36415; 80048; 85025; 97110; 97116; 97162; 97166; 97530; 97535; 97802; 99251; G0008; 90686; G0463

== ENCOUNTER 2021-10-23 15:49 | Observation (INO) | payer MEDICARE, SELFPAY ==
[2021-10-22] VITALS (12 sets, daily range): BP systolic 119–141; BP diastolic 59–76; PULSE 65–77; RESP 16–18; TEMP 36.1–36.7; O2SAT 97–100; BMI 25.4
[2021-10-22] MEDS: Lactated Ringers 1,000 ML 15 ML IV ×2 (09:14→13:05)
--- NOTE | 2021-10-22 10:50 | PROS_PTH ---
PATIENT: ALY LEMONS LOC: MS3 U#:[id number] AGE/SX: 76/M [place] [facility] [place]: Dr. Erich Carlos MD : 1945 BED: 1 DIS: 10/24/2021 SPEC #: [id number] RECD: 10/22/21 13:22 STATUS: [place] #: [id number] JENNIFER: 10/22/21 10:[address]: Erich Carlos DEPT: SURGICAL PATHOLOGY RECD BY: Bernie Garsia ENTERED: 10/24/21 09:08 SP TYPE: TURP OTHR DR: Dr. Juanito Juarez MD Tissues: Prostate, NOS Procedures: Surgery Specimen Level IV HEADER OPERATION: Cystoscopy, transurethral resection of the prostate PRE-OP DIAGNOSIS: Benign prostate hyperplasia with obstruction, urinary TISSUE SUBMITTED: Prostate tissue MICROSCOPIC DIAGNOSIS Prostate, TUR: Benign prostatic hyperplasia, glandular and stromal type. Focal chronic inflammation. SJ 10/27/21 MICROSCOPIC DESCRIPTION Slides are reviewed. GROSS DESCRIPTION Received is one container labeled with the patient's name and designated prostate tissue. The specimen consists of multiple irregular fragments of pink-lopez, rubbery, soft tissue that in aggregate weigh 13.8 gm and measure in aggregate 6.0 x 6.0 x 2.0 cm. White Mixing Operator tissue is submitted in ten cassettes. /MIGUELANGEL:matt 10/24/21 TC:5 [facility]: [id number]
[2021-10-22] MEDS: Cefazolin 2 GM in 0.9% Normal Saline 100 ML IV (11:35)
--- NOTE | 2021-10-22 11:41 | PCM.HP.STD ---
HPI - General HPI Narrative ALY LEMONS, is a 76 M who presents for a TURP for BPH with obstruction and urinary retention. PFSH Medical History (Updated 10/15/21 @ 13:52 by Juana Zayas) Arthritis Cancer Chronic cough Former smoker Hemorrhoids High cholesterol History of edema Hypertension Indwelling urethral catheter present Prostate disease Wears glasses Home Medications atorvastatin [Lipitor] 40 mg PO DAILY 04/26/17 [History Last Taken 09/09/21 23:00] amlodipine 10 mg PO DAILY 08/26/21 [History Last Taken 10/22/21] aspirin 81 mg PO BID 09/10/21 [History Last Taken Unknown] famotidine 20 mg PO DAILY 30 Days #30 tab 09/23/21 [Rx Last Taken 10/22/21] sennosides-docusate sodium [Stool Softener-Stimulant Laxat] 2 tab PO BID 30 Days #120 tab 09/23/21 [Rx Last Taken Unknown] meloxicam 15 mg PO DAILY #30 tab 09/29/21 [Rx Last Taken Unknown] Allergy/AdvReac Type Severity Reaction Status Date / Time No Known Allergies Allergy Verified 10/22/21 08:56 Family History Other Cancer Surgical History (Updated 10/15/21 @ 13:52 by Juana Zayas) History of inguinal hernia repair S/P total right hip arthroplasty Social History household members: spouse Smoking Status: Former smoker alcohol intake: never substance use type: does not use Vital Signs Vital Signs Vital Signs: 10/22/21 08:58 Temperature 97.6 F L Temperature Source Temporal Pulse Rate 67 Respiratory Rate 16 Respiratory Pattern Normal Blood Pressure 126/73 H Blood Pressure Mean 90 Blood Pressure Source Monitor Blood Pressure Position Semi-Fowlers Blood Pressure Location Right Arm Pulse Ox 100 Oxygen Delivery Method Room Air Weight Weight: 78.3 kg Body Mass Index (BMI) 25.4
--- NOTE | 2021-10-22 11:42 | PCM.DC ---
Discharge Instructions Diet Discharge Diet: No restrictions Activity Discharge Activity: Return to Normal Activity and May Not Drive (while taking narcotic pain medications.) Dressing / Incision Call your doctor if you observe: Fever of 101 or Higher Follow Up Care Please Follow Up With: Erich Carlos MD When: Call [phone] for an appointment Test Results: Test results from this visit will be discussed in further detail at your follow-up appointment, if applicable. Discharge Plan Admission Primary Reason for Your Visit: TUR Attending Provider: Erich Carlos Primary Care Provider: Juanito Juarez Instructions Patient Instructions: [facility] Home Recovery Discharge Orders/Prescriptions Prescriptions: New ciprofloxacin HCl [Cipro] 500 mg tablet 500 mg PO BID Qty: 10 RF: 0 Continued atorvastatin [Lipitor] 20 MG tablet 40 mg PO DAILY RF: 0 amlodipine 10 mg tablet 10 mg PO DAILY RF: 0 sennosides-docusate sodium [Stool Softener-Stimulant Laxat] 8.6-50 mg tablet 2 tab PO BID 30 Days Qty: 120 RF: 0 famotidine 20 mg tablet 20 mg PO DAILY 30 Days Qty: 30 RF: 0 meloxicam 15 mg tablet 15 mg PO DAILY Qty: 30 RF: 0 Held aspirin 81 mg tablet,chewable 81 mg PO BID RF: 0 Hold Instructions: Resume on 11/05/21. Discontinued tamsulosin 0.4 mg Capsule 0.8 mg PO DAILY@1730 30 Days Qty: 60 RF: 0 finasteride 5 mg Tablet 5 mg PO DAILY 30 Days Qty: 30 RF: 0 Referrals / Follow Up: Erich Carlos MD [STAFF PHYSICIAN] - Juanito Juarez MD [Primary Care Provider] - Disposition Disposition (needs filled in before D/C Order can be placed): Home, Self Care
[2021-10-22] MEDS: Lubricating Jelly 60 GM Tube 30 GM (11:50)
--- NOTE | 2021-10-22 12:33 | PCM.OPRPT ---
Report of Operation Date of Procedure: 10/22/21 Pre-Operative Diagnosis: bph with retention of urine Post-Operative Diagnosis: same Surgery/Procedure Performed:: TURP Description of Surgical Findings:: In the preoperative setting I discussed with the patient how the surgery would be done with expect afterwards. We discussed how a prostate resection is done and we discussed the risk of the surgery including, bleeding, infection, retrograde ejaculation, changes with ejaculation or intercourse,. We discussed the possibility that the resection of the prostate may not alleviate his urinary symptoms. We discussed the small risk of developing scar tissue along the urethral channel and strictures. We also discussed the chance of the prostate could grow back and he may need further surgery or treatment in the future for prostate problems. Patient was taken back to the operating room, timeout procedure was performed, he was identified and marked and placed on the operating room table. He underwent general anesthesia. He was placed in dorsolithotomy position. Penis and testicles were prepped and draped in usual sterile fashion. Went into the bladder using the visual obturator with a resectoscope. Once inside the bladder identified the right and left ureteral orifice. I then identified the prostate and the anatomy of the prostate. I marked out the area of the sphincter and the verumontanum was identified. I then proceeded with the prostate resection first resected the median lobe. And then resected the right lobe of the prostate. Then to resect the left lobe of the prostate. I then resected the apical tissue of the prostate. This was a complete resection of all obstructive tissue to improve voiding and relieve obstruction. I then made sure that there was no injury to the sphincter or the verumontanum was still intact. At the end of the resection all the chips were Ellik out of the bladder. I then identified the left and right ureteral orifice and these were confirmed to be in good position and effluxing and not injured. The resectoscope was removed, a 22 Kinyarwanda catheter was placed into the bladder on continuous irrigation. And the urine was fairly light pink color and draining normally. He was taken back to the PACU in good condition. CPT 67937 Surgeon: Terrance Type of Anesthesia: General Drains: [address] Ad[address] VTE Documentation VTE Present on Admission: No VTE Mechan Device Prophylaxis: SCD's VTE Pharm Prophylaxis ordered?: No
[2021-10-22] MEDS: Acetaminophen 500 MG Tablet 1000 MG PO ×2 (14:46→22:54)
--- NOTE | 2021-10-22 19:13 | PCS.PANDOC ---
PANDEMIC DOCUMENTATION INITIATED: Date: 07/14/2021 Time: 190
[2021-10-22] MEDS: Ciprofloxacin 500 MG Tablet PO (20:01)
[2021-10-22] MEDS: Atorvastatin Calcium 40 MG Tablet PO (20:01)
[2021-10-22] MEDS: Senna/Docusate Sodium 1 Tablet 2 TABLET PO (20:01)
[2021-10-23 05:24] VITALS: BP 144/71; PULSE 56; RESP 18; TEMP 36.8; O2SAT 98
[2021-10-23 09:46] VITALS: BP 120/64; PULSE 69; RESP 16; TEMP 36.5; O2SAT 98
--- NOTE | 2021-10-23 09:57 | NURSING ---
Walked to the bathroom and then to the chair. Is now sitting up in chair.
[2021-10-23] MEDS: Ciprofloxacin 500 MG Tablet PO ×2 (10:01→22:18)
[2021-10-23] MEDS: Meloxicam 15 MG Tablet PO (10:01)
[2021-10-23] MEDS: Famotidine 20 MG Tablet PO (10:01)
[2021-10-23] MEDS: amLODIPine 10 MG Tablet PO (10:01)
[2021-10-23] MEDS: Senna/Docusate Sodium 1 Tablet 2 TABLET PO ×2 (10:01→22:18)
[2021-10-23] MEDS: Acetaminophen 500 MG Tablet 1000 MG PO ×2 (10:07→22:18)
--- NOTE | 2021-10-23 13:58 | NURSING ---
Jiménez removed by this nurse at approximately 1315 today. Measuring hat in toilet. Will monitor output.
[2021-10-23 15:10] VITALS: BP 128/69; PULSE 67; RESP 20; TEMP 36.4; O2SAT 97
--- NOTE | 2021-10-23 15:33 | NURSING ---
Continues to sit up in chair. Did not want to get in bed at this time. Pain medication was offered, pt stated he did not need any.
[2021-10-23 19:42] VITALS: BP 122/69; PULSE 66; RESP 16; TEMP 37; O2SAT 98
[2021-10-23] MEDS: Atorvastatin Calcium 40 MG Tablet PO (22:18)
[2021-10-24 01:42] VITALS: BP 146/74; PULSE 58; RESP 16; TEMP 36.4; O2SAT 97
[2021-10-24 08:23] VITALS: BP 131/63; PULSE 66; RESP 18; TEMP 36.6; O2SAT 98
[2021-10-24] MEDS: Ciprofloxacin 500 MG Tablet PO (10:17)
[2021-10-24] MEDS: amLODIPine 10 MG Tablet PO (10:17)
[2021-10-24] MEDS: Famotidine 20 MG Tablet PO (10:17)
[2021-10-24] MEDS: Meloxicam 15 MG Tablet PO (10:17)
[2021-10-24] MEDS: Senna/Docusate Sodium 1 Tablet 2 TABLET PO (10:17)
[2021-10-24] MEDS: Acetaminophen 500 MG Tablet 1000 MG PO (10:17)
== END 2021-10-24 14:30 | disposition home or self-care (01) ==
LOC: SDC 18:06 → MS3 10-24 09:26
PROVIDERS: Admitting Provider Urology; PCP Internal Medicine; Referring Provider Urology; Visit Provider Urology
PROC: (CPT 52601; principal; 2021-10-22 10:40)
DX: N40.1 Benign prostatic hyperplasia with lower urinary tract symptoms (principal); R33.8 Other retention of urine; I10 Essential (primary) hypertension; M19.90 Unspecified osteoarthritis, unspecified site; E78.00 Pure hypercholesterolemia, unspecified; Z87.891 Personal history of nicotine dependence; Z79.899 Other long term (current) drug therapy; Z79.82 Long term (current) use of aspirin
CPT/HCPCS: 00914; 52601; 88305; 99218; J7120; G0378; J2405

== ENCOUNTER → 2023-06-30 | Outpatient (CLI) | payer MEDICARE, SELFPAY ==
[2023-06-30 14:40] LABS: PSA,Total- Diagnostic 3.28 ng/mL (0.0-4.0)
== END | disposition home or self-care (01) ==
LOC: LAB 13:35
PROVIDERS: PCP Internal Medicine; Referring Provider Urology; Visit Provider Urology
DX: N40.1 Benign prostatic hyperplasia with lower urinary tract symptoms (principal)
CPT/HCPCS: 36415; 84153

== ENCOUNTER 2024-01-21 14:02 | Emergency (ER) | payer MEDICARE, SELFPAY ==
[2024-01-21 14:04] VITALS: BP 138/75; PULSE 86; RESP 16; TEMP 36.3; O2SAT 98; BMI 26.9
[2024-01-21 14:07] VITALS: BP 138/75; PULSE 86; RESP 16; TEMP 36.3; O2SAT 98
--- NOTE | 2024-01-21 16:24 | RAD_ITS ---
STUDY: X-RAY - LEFT HAND REASON FOR EXAM: Male, 78 years old. Cat Bite TECHNIQUE: 3 view(s) of the hand. COMPARISON: None. FINDINGS: Normal radiocarpal articulation. Normal distal radioulnar joint. Normal visualized carpal bones. 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 Normal second through fifth carpometacarpal joints. Normal metacarpi. Normal metacarpophalangeal joint of the thumb. Normal interphalangeal joint of the thumb. Normal proximal and distal phalanges of the thumb. Normal metacarpophalangeal joints of the second through fifth fingers. Degenerative changes of the DIP joints the second through fifth digits and PIP joints of the second and fifth digits. Normal phalanges of the second through fifth fingers. Focal soft tissue swelling the dorsal surface of the mid hand without body in the soft tissues or radiographic evidence for acute osteomyelitis RAD/Hand Min 3 Views IMPRESSION: Soft tissue swelling without evidence for acute fracture or osteomyelitis Electronically Signed: Wilian Molina MD at 16:51 EST ,
[2024-01-21] MEDS: Amox/Clavulanate 875 MG Tablet PO (16:31)
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
[2024-01-21] MEDS: Rabies Vaccine,Human Diploid 2.5 UNITS Vial IM (18:19)
[2024-01-21] MEDS: Rabies Immune Globulin/PF 300 UNIT/ML, 5 ML VIAL 1500 UNIT IM (18:25)
[2024-01-21] MEDS: Rabies Immune Globulin 150 U/ML 2ml Vial IM (18:30)
[2024-01-21 18:45] VITALS: BP 126/85; PULSE 78; RESP 16; TEMP 36.6; O2SAT 96
== END 2024-01-21 18:53 | disposition home or self-care (01) ==
PROVIDERS: Emergency Provider Emergency Medicine; PCP Internal Medicine; Visit Provider Emergency Medicine
DX: S61.452A Open bite of left hand, initial encounter (principal); W55.01XA Bitten by cat, initial encounter; Z87.891 Personal history of nicotine dependence; E78.00 Pure hypercholesterolemia, unspecified; I10 Essential (primary) hypertension; Z23 Encounter for immunization; Y92.410 Unspecified street and highway as the place of occurrence of the external cause
CPT/HCPCS: 73130; 90675; 96372; 99283; 90375

== ENCOUNTER 2024-01-24 15:02 | Outpatient (CLI) | payer MEDICARE, SELFPAY ==
[2024-01-24 15:10] VITALS: BP 127/73; PULSE 79; RESP 16; TEMP 35.9; O2SAT 97
[2024-01-24] MEDS: Rabies Vaccine,Human Diploid 2.5 UNITS Vial IM (15:34)
[2024-01-24 15:41] VITALS: BP 127/73; PULSE 79; RESP 16; TEMP 35.9; O2SAT 97
--- OUTSIDE RECORDS SUMMARY | 2024-01-24 23:47 | XMS RPT_ITS | CCD ---
Author Name Unknown Address [address] [facility] [facility] [id number] [place] [address] Organization [facility] Care Team Providers Care Graffiti Cleaner Name Role Phone Juanito Worley MD Primary Care Provider JUANITO WORLEY Primary Care Unavailable JUANITO WORLEY Attending Unavailable JUANITO WORLEY Primary Care Unavailable JUANITO WORLEY Referring Unavailable JUANITO WORLEY Referring Unavailable JUANITO WORLEY Attending Unavailable JUANITO WORLYE Primary Care Unavailable Medications Current Medications Medication Drug Class(es) Dates Sig (Normalized) Sig (Original) acetaminophen 325 mg / oxyCODONE hydrochloride 5 mg oral tablet (2 sources) Opioid Agonist Start: 04-02-2022 End: 07-30-2022 take 1 tablet by mouth every six hours as needed for pain oxyCODONE-acetamino phen (PERCOCET) 5-325 mg tablet Indications: Left inguinal hernia Take 1 tablet by mouth every 6 hours as needed for pain. 10 tablet 0 04/02/2022 07/30/2022 Discontinued Completed/Discontinued Medications Medication Drug Class(es) Dates Sig (Normalized) Sig (Original) amLODIPine 10 mg oral tablet (7 sources) Dihydropyridine Calcium Channel Uzma Start: 01-27-2022 End: 01-19-2023 take 1 tablet by mouth once daily amLODIPine (NORVASC) 10 mg tablet Indications: Essential hypertension Take 1 tablet by mouth once daily. 90 tablet 3 01/19/2023 Active Problems Active Problems Problem Classification Problem Date Documented Date Episodic/Chronic Abdominal hernia (4 sources) Left inguinal hernia ; Translations: [Unilateral inguinal hernia, without obstruction or gangrene, not specified as recurrent] Onset: 07-05-2018 Episodic Administrative/social admission (1 source) Relationship problems; Translations: [Problem related to primary support group, unspecified] 07-30-2023 Episodic Disorders of lipid metabolism (9 sources) Hyperlipidemia; Translations: [Hyperlipidemia, unspecified] Onset: 11-07-2009 11-07-2009 Chronic Essential hypertension (9 sources) Essential hypertension; Translations: [Essential (primary) hypertension] Onset: 10-20-2017 02-16-2019 Chronic Hyperplasia of prostate (6 sources) Benign prostatic hypertrophy with outflow obstruction; Translations: [Benign prostatic hyperplasia with lower urinary tract symptoms] Onset: 11-07-2009 11-07-2009 Chronic Immunizations and screening for infectious disease (2 sources) Needs influenza immunization; Translations: [Encounter for immunization] Episodic Osteoarthritis (6 sources) Osteoarthritis of right hip joint; Translations: [Unilateral primary osteoarthritis, right hip] Onset: 06-30-2017 06-30-2017 Chronic Other connective tissue disease (6 sources) Cramp in lower limb; Translations: [Sleep related leg cramps] Onset: 06-30-2017 06-30-2017 Chronic Other connective tissue disease (1 source) Pain of right thigh; Translations: [Pain in right thigh] Episodic Past or Other Problems Problem Classification Problem Date Documented Da te Episodic/Chronic Diabetes mellitus without complication (7 sources) Impaired fasting glycemia; Translations: [Impaired fasting glucose] Onset: 06-30-2017 06-30-2017 Episodic Other connective tissue disease (1 source) Pain in right thigh; Translations: [Pain of right thigh] Onset: 01-19-2023 Episodic Other non-epithelial cancer of skin (6 sources) Basal cell carcinoma of skin; Translations: [Basal cell carcinoma of skin, unspecified] Onset: 10-24-2012 11-24-2021 Episodic Other screening for suspected conditions (not mental disorders or infectious disease) (6 sources) Raised prostate specific antigen; Translations: [Elevated prostate specific antigen [PSA]] Onset: 12-21-2016 12-21-2016 Episodic Other skin disorders (6 sources) Multiple actinic keratoses; Translations: [Actinic keratosis] Onset: 11-07-2009 12-26-2015 Episodic Spondylosis; intervertebral disc disorders; other back problems (7 sources) Spinal stenosis of lumbar region; Translations: [Spinal stenosis, lumbar region without neurogenic claudication] Onset: 01-27-2022 01-27-2022 Episodic Results Test Name Value Interpretation Reference Range Facil ity Vital Signs Date Time Vital Sign Value Performing Clinician Glenys tapia 07-30-2023 08:05-0400 Body height 172.7 cm Juanito Worley MD Work Phone: [facility] 07-30-2023 08:05-0400 Body weight 81.19 kg Juanito Worley MD Work Phone: [facility] 01-19-2023 10:02-0500 Diastolic blood pressure 58 mm[Hg] Juanito Worley MD Work Phone: [facility] 01-19-2023 10:02-0500 Systolic blood pressure 126 mm[Hg] Juanito Worley MD Work Phone: [facility] 01-19-2023 08:59-0500 Body temperature 97.3 [degF] Juanito Worley MD Work Phone: [facility] 01-19-2023 08:59-0500 Body weight 83.46 kg Juanito Worley MD Work Phone: [facility] 01-19-2023 08:59-0500 Heart rate 72 /min Juanito Worley MD Work Phone: [facility] 01-19-2023 08:59-0500 Respiratory rate 12 /min Juanito Worley MD Work Phone: [facility] 07-30-2022 08:20-0400 Body height 175.3 cm Juanito Worley MD Work Phone: [facility] 07-30-2022 08:20-0400 Body temperature 97 [degF] Juanito Worley MD Work Phone: [facility] 07-30-2022 08:20-0400 Body weight 82.1 kg Juanito Worley MD Work Phone: [facility] 07-30-2022 08:20-0400 Diastolic blood pressure 68 mm[Hg] Juanito Worley MD Work Phone: [facility] 07-30-2022 08:20-0400 Heart rate 72 /min Juanito Worley MD Work Phone: [facility] 07-30-2022 08:20-0400 Respiratory rate 16 /min Juanito Worley MD Work Phone: [facility] 07-30-2022 08:20-0400 Systolic blood pressure 122 mm[Hg] Juanito Worley MD Work Phone: [facility] 04-09-2022 10:44-0400 Body height 177.8 cm Adán Curran MD Work Phone: [facility] 04-09-2022 10:44-0400 Body temperature 97.81 [degF] Adán Curran MD Work Phone: [facility] 04-09-2022 10:44-0400 Body weight 78.02 kg Adán Curran MD Work Phone: [facility] 04-09-2022 10:44-0400 Diastolic blood pressure 56 mm[Hg] Adán Curran MD Work Phone: [facility] 04-09-2022 10:44-0400 Heart rate 87 /min Adán Curran MD Work Phone: [facility] 04-09-2022 10:44-0400 SaO2% (BldA) [Mass fraction] 96 % Adán Curran MD Work Phone: [facility] 04-09-2022 10:44-0400 Systolic blood pressure 112 mm[Hg] Adán Curran MD Work Phone: [facility] 03-19-2022 07:09-0400 Body height 177.8 cm Adán Curran MD Work Phone: [facility] 03-19-2022 07:09-0400 Body temperature 98.1 [degF] Adán Curran MD Work Phone: [facility] 03-19-2022 07:09-0400 Body weight 79.83 kg Adán Curran MD Work Phone: [facility] 03-19-2022 07:09-0400 Diastolic blood pressure 74 mm[Hg] Adán Curran MD Work Phone: [facility] 03-19-2022 07:09-0400 Heart rate 82 /min Adán Curran MD Work Phone: [facility] 03-19-2022 07:09-0400 SaO2% (BldA) [Mass fraction] 97 % Adán Curran MD Work Phone: [facility] 03-19-2022 07:09-0400 Systolic blood pressure 146 mm[Hg] Adán Curran MD Work Phone: [facility] Encounters Encounter Date Encounter Type Care Provider Facility Start: 07-30-2023 End: 07-30-2023 ambulatory JUANITO WORLEY Facility:[facility] Start: 07-30-2023 End: 07-30-2023 Patient encounter procedure Juanito Worley MD Work Phone: Internal [facility] Procedures Date Procedure Procedure Detail Performing Clinician Start: 01-19-2023 [employer] COVI D-19 BIVALENT BOOSTER VACCINE, AGE 12+ YR Juanito Worley MD Work Phone: Start: 07-30-2022 INFLUENZA SEASONAL QUADRIVALENT HIGH DOSE AGE 65+ Juanito Worley MD Work Phone: Start: 07-30-2022 Adult depression scr eening assessment Juanito Worley MD Work Phone: Start: 01-15-2021 Adult depression scr eening assessment Adán Curran MD Work Phone: Start: 02-21-2015 Colonoscopy Adán vicente MD Work Phone: Plan of Treatment Date Care Activity Detail Author Start: 07-22-2026 LIPID SCREEN LIPID SCREEN [facility] Start: 06-25-2026 Urine microalbumin profile DTAP,TDAP,TD (3 - Td or Tdap) [facility] Start: 07-27-2025 DIABETES SCREEN DIABETES SCREEN [facility] Start: 02-21-2025 Colonoscopy COLONOSCOPY [facility] Start: 02-21-2025 COLORECTAL CANCER SCREENING COLORECTAL CANCER SCREENING [facility] Start: 01-23-2025 DIABETES SCREEN DIABETES SCREEN [facility] Start: 07-30-2024 ANNUAL PCP TEAM CHRONIC DISEASE VISIT ANNUAL PCP TEAM CHRONIC DISEASE VISIT [facility] Start: 07-30-2024 BP CONTROLLED (<130/80) BP CONTROLLED (<130/80) [facility] Start: 01-19-2024 ANNUAL PCP TEAM CHRONIC DISEASE VISIT ANNUAL PCP TEAM CHRONIC DISEASE VISIT [facility] Start: 01-19-2024 BP CONTROLLED (<130/80) BP CONTROLLED (<130/80) [facility] Start: 07-30-2023 Adult depression screening assessment DEPRESSION SCREENING [facility] Start: 07-30-2023 ANNUAL PCP TEAM CHRONIC DISEASE VISIT ANNUAL PCP TEAM CHRONIC DISEASE VISIT [facility] Start: 07-30-2023 BP CONTROLLED (<130/80) BP CONTROLLED (<130/80) [facility] Start: 07-30-2023 Influenza vaccination INFLUENZA (#1) [facility] Start: 07-19-2023 End: 09-18-2023 CBC panel - Blood by Automated count CBC Lab Routine Essential hypertension Expected: 07/19/2023, Expires: 09/18/2023 [facility] Work Phone: Immunizations Immunization Date Immunization Notes Care Provider Fa cilikaylin 01-19-2023 COVID-19 booster vaccine, age 12+ yr, bivalent (PFIZER-BIONTDUHEM) Juanito Worley MD Work Phone: [facility] Work Phone: 07-30-2022 influenza, high-dose , quadrivalent vaccine (FLUZONE HIGH DOSE QUADRIVALENT) Juanito Worley MD Work Phone: [facility] Work Phone: 09-11-2021 influenza, seasonal, injectable, preservative free Adán Curran MD Work Phone: [facility] Work Phone: 11-01-2020 influenza, high dose seasonal, preservative-free Adán Curran MD Work Phone: [facility] Work Phone: 01-11-2020 influenza, high dose seasonal, preservative-free Adán Curran MD Work Phone: [facility] 01-09-2019 influenza, high dose seasonal, preservative-free Adán Curran MD Work Phone: [facility] Work Phone: 01-03-2018 influenza, high dose seasonal, preservative-free Adán Curran MD Work Phone: [facility] 12-28-2016 influenza, high dose seasonal, preservative-free Adán Curran MD Work Phone: [facility] 06-25-2016 tetanus and diphther ia toxoids, adsorbed, preservative free, for adult use (5 Lf of tetanus toxoid and 2 Lf of diphtheria toxoid) Adán Curran MD Work Phone: [facility] 01-27-2016 pneumococcal conjuga te vaccine, 13 valent Adán Curran MD Work Phone: [facility] Work Phone: 12-26-2015 influenza, high dose seasonal, preservative-free Adán Curran MD Work Phone: [facility] 03-02-2015 zoster vaccine, live Adán Curran MD Work Phone: [facility] Work Phone: 10-23-2014 influenza, high dose seasonal, preservative-free Adán Curran MD Work Phone: [facility] 10-23-2014 zoster vaccine, live Adán Curran MD Work Phone: [facility] Work Phone: 10-24-2012 influenza virus vacc ine, unspecified formulation Adán Curran MD Work Phone: [facility] Work Phone: 09-10-2011 influenza virus vacc ine, unspecified formulation Adán Curran MD Work Phone: [facility] Work Phone: 09-10-2011 pneumococcal polysaccharide vaccine, 23 valent Adán Curran MD Work Phone: [facility] Work Phone: 10-13-2008 influenza virus vacc ine, unspecified formulation Adán Curran MD Work Phone: [facility] Work Phone: 07-08-2006 tetanus toxoid, redu casandra diphtheria toxoid, and acellular pertussis vaccine, adsorbed Adán Curran MD Work Phone: [facility] Work Phone: Payers Date Payer Category Payer Medicare AETNA MEDICARE A ETNA MEDICARE PPO [id number] 2021-Present [phone] [address] [place] [address] PPO [id number] 2021 Medicare AETNA MEDICARE A ETNA MEDICARE PPO [id number] 2021-Present [phone] [address] [place] [address] PPO [id number] 2021 Medicare [id number] Social History Date Type Detail Facility Start: 07[facility]30-2022 [facility] Work Phone: End: 11-29-1982 History of tobacco use Current smoker [facility] Work Phone: End: 11-29-1982 History of tobacco use Pipe Smoker [facility] Work Phone: Start: 03-19-2022 End: 07-30-2023 Alcohol intake Current non-drinker of alcohol (finding) [facility] Start: 05-09-2020 End: 01-16-2021 History SDOH Alcohol Frequency 1 [facility] Start: 05-09-2020 History SDOH Alcohol Std Drinks 98 [facility] Start: 05-09-2020 History SDOH Social Connections Phone 3 [facility] Start: 05-09-2020 End: 01-16-2021 History SDOH Social Connections Get Together 2 [facility] Start: 05-09-2020 History SDOH Physica l Activity DPW 7 [facility] Start: 05-09-2020 History SDOH Physica l Activity MPS 15 [facility] Start: 05-09-2020 History SDOH Financial 5 [facility] Start: 05-09-2020 Education 20 [facility] Start: 1945 Sex Assigned At Not on file [facility] Start: 03-09-2022 End: 07-30-2022 Exposure to SARS-CoV-2 (event) Not sure [facility] Start: 07-30-2022 Tobacco use and exposure Karolina blackburn smokeless tobacco user [facility] Work Phone: Start: 05-09-2020 End: 12-25-2022 History of Social function [facility] Start: 05-09-2020 End: 12-25-2022 Social connection and isolation panel [facility] Do you belong to any clubs or organizations such as islam groups, unions, fraternal or athletic groups, or school groups? Yes [facility] Are you now , , , , never or living with a partner? [facility] How often to you hav e a drink containing alcohol? Never [facility] How many standard dr inks containing alcohol do you have on a typical day? Patient refused [facility] Do you feel stress - tense, restless, nervous, or anxious, or unable to sleep at night because your mind is troubled all the time - these days [OSQ] Only a little [facility] (I/We) worried wheth er (my/our) food would run out before (I/we) got money to buy more. Never true [facility] Work Phone: In the past 12 month s, was there a time when you were not able to pay the mortgage or rent on time? No [facility] Medical Equipment Procedure Code Equipment Code Equipment Origin al Text Equipment Identifier Dates Mesh [employer] Polypropylene Surgical Nonabsorbable Plug Knitted - [id number] Start: 04-02-2022 Clinical Notes 06-30-2017 to 07-30-2023 Patient Juanito Hyde MD - 07/30/2023 8:37 AM Juanito Knight MD - 07/30/2023 8:26 AM EDTPatient InstructionsVicgudelia Worley MD - 01/19/2023 9:04 AM EST Note Date & Type Note Facility 07-30-2023 Note HNO ID: [id number] Author: Juanito Worley MD Service: ? Author Type: Physician Type: Progress Notes Filed: 07/30/2023 9:13 AM Note Text: This note was created using [employer] computer[employer]. Subjective Aly Nina is a 78 year old male. He was doing reasonably well and listed conditions were stable or improved. He did not see orthopedics any more, and referral for pain management was not pursued as pains improved. His mentioned asking about depression today. He felt their relationship was less ideal from before and he maybe getting more irritable with aging. 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 Review of Systems Constitutional: Negative for fatigue and unexpected weight change. Respiratory: Negative for shortness of breath. Cardiovascular: Negative for chest pain, palpitations and leg swelling. Gastrointestinal: Negative. Neurological: Negative for dizziness and headaches. Psychiatric/Behavioral: Negative for decreased concentration, dysphoric mood, self-injury, sleep disturbance and suicidal ideas. The patient is not nervous/anxious. ACTIVE PROBLEM LIST Hyperlipidemia Actinic Keratoses Bph With Urinary Obstruction Bcc (Basal Cell Carcinoma of Skin) Elevated Prostate Specific Antigen (Psa) Impaired Fasting Blood Sugar Nocturnal Leg Cramps Primary Osteoarthritis of Right Hip Essential Hypertension Spinal Stenosis of Lumbar Region Without Neurogenic Claudication Current Outpatient Medications Medication Sig atorvastatin (LIPITOR) 40 mg tablet Take 1 tablet by mouth daily at bedtime. For cholesterol. amLODIPine (NORVASC) 10 mg tablet Take 1 tablet by mouth once daily. No current facility-administered medications for this visit. Objective BP (P) 114/68 (BP Site: Left Arm, BP Position: Sitting, BP Cuff Size: Regular Adult) Pulse (P) 72 Ht 172.7 cm (5' 8 ) Wt 81.2 kg (179 lb) BMI 27.22 kg/m? Physical Exam Constitutional: General: He is not in acute distress. Appearance: He is not ill-appearing. Cardiovascular: Rate and Rhythm: Normal rate and regular rhythm. Heart sounds: No murmur heard. No gallop. Pulmonary: Breath sounds: Normal breath sounds. Abdominal: Tenderness: There is no abdominal tenderness. Musculoskeletal: Right lower leg: No edema. Left lower leg: No edema. Neurological: Mental Status: He is alert. Gait: Gait normal. Psychiatric: Mood and Affect: Mood normal. Behavior: Behavior normal. Labs TBD. Assessment and Plan 1. Medicare annual wellness visit, subsequent - ICD9: V70.0, ICD10: Z00.00 (primary diagnosis) See wellness note. 2. Essential hypertension - ICD9: 401.9, ICD10: I10 - Controlled 3. Hyperlipidemia, unspecified hyperlipidemia type - ICD9: 272.4, ICD10: E78.5 - Control undetermined, due for labs - Continue current medications - Counseled on healthy diet and regular exercise 4. Relationship problems - ICD9: 313.3, ICD10: Z63.9 - We discussed referral for joint counseling. He will discuss this with his spouse and call back. Juanito Worley MD [facility] 07-30-2023 Note HNO ID: [id number] Author: Juanito Worley MD Service: ? Author Type: Physician Type: Progress Notes Filed: 07/30/2023 9:13 AM Note Text: Aly Nina is a 78 year old male here for a Medicare wellness visit. Health Risk Assessment In general, health is: Very good Concerns with balance:Not at all Concerns with teeth or dentures:Not at all Concerns with sexual function:Not at all [place] anxious, stressed, angry, irritable, lonely, isolated, or had thoughts of hurting themself: Not at all Has little interest or pleasure in doing things: Not at all Bothered by feeling down, depressed, or hopeless: Not at all Needs help with grocery shopping, cooking, housework, bathing, grooming, dressing, eating, sitting or standing, walking, using the toilet, handling finances, taking medications, using the telephone, or driving: No Following safety precautions in the home environment and vehicle: removed throw rugs from floors, installed grab bars in the bathroom, handrails in stairwells, having adequate lighting, wearing seatbelt at all times?: Yes Smokes cigarettes, vapes, or chew tobacco: No Eats healthy foods including fruits, vegetables, whole grains, and fiber-rich foods: Several days Number of days per week engages in exercise: 7 days Average alcohol consumption: Never Current Providers Specialists: I have reviewed specialist-related care of the patient in the medical record. Current care team: Patient Care Team: Juanito Worley MD as PCP - General (Internal Medicine) Outside specialists seen: Dr. Duncan Carlos, urology. Dr. Sandra, ophthalmology. [facility]. Medical/Family history review Reviewed and updated problem list, medical/surgical/family/social history, medications, and allergies. Opioid use review Patient is not currently using opioids. Depression screening Depression Screening PHQ-2 Score MERARY-2 Total Score 07/30/2022 0 - Depression screening tool completed and reviewed. Based on score and interview, patient is not at risk for depression. Screening tool discussed with patient, and I recommended no further intervention at this time. Cognitive screening Mini Cog Score: 5 Functional Observation Was the patient's timed Up AND Go test unsteady or ? 12 seconds? No Advance Care Planning End of Life planning discussed, including patient's advanced directive wishes: Yes Measurements Ht 5' 8 (1.73m) Wt 179 lb (81.2kg) BMI 27.22 kg/(m2). Visual acuity (required for Welcome to Medicare): follows with optometry/ophthalmology and Right: 20/40 Left: 20/ 25 Both: 20/15 Hearing Evaluation: within normal limits Assessment/Plan Medicare annual wellness visit, subsequent (Z00.00) - Counseled on healthy diet and regular exercise - Fall avoidance - Vaccines recommended COVID-19, Influenza, and Shingrix at pharmacy - Depression screening [facility] 07-30-2023 Instructions Juanito Worley MD - 07/30/2023 8:41 AM EDT Get vaccinated for: Shingles. Flu. Covid. Have you ever planned for future healthcare decisions with a power of personal injury attorney, living will, or advance directives? Yes. Have you shared those records with your doctor? No and No. Please bring a copy to your next appointment or email to Fasting blood work soon. documented in this encounter [facility] 07-30-2023 History of Presen t illness Narrative This note was created using [employer]. Subjective Aly Nina is a 78 year old male. He was doing reasonably well and listed conditions were stable or improved. He did not see orthopedics any more, and referral for pain management was not pursued as pains improved. His mentioned asking about depression today. He felt their relationship was less ideal from before and he maybe getting more irritable with aging. 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 Review of Systems Constitutional: Negative for fatigue and unexpected weight change. Respiratory: Negative for shortness of breath. Cardiovascular: Negative for chest pain, palpitations and leg swelling. Gastrointestinal: Negative. Neurological: Negative for dizziness and headaches. Psychiatric/Behavioral: Negative for decreased concentration, dysphoric mood, self-injury, sleep disturbance and suicidal ideas. The patient is not nervous/anxious. ACTIVE PROBLEM LIST Hyperlipidemia Actinic Keratoses Bph With Urinary Obstruction Bcc (Basal Cell Carcinoma of Skin) Elevated Prostate Specific Antigen (Psa) Impaired Fasting Blood Sugar Nocturnal Leg Cramps Primary Osteoarthritis of Right Hip Essential Hypertension Spinal Stenosis of Lumbar Region Without Neurogenic Claudication Current Outpatient Medications Medication Sig atorvastatin (LIPITOR) 40 mg tablet Take 1 tablet by mouth daily at bedtime. For cholesterol. amLODIPine (NORVASC) 10 mg tablet Take 1 tablet by mouth once daily. No current facility-administered medications for this visit. Objective BP (P) 114/68 (BP Site: Left Arm, BP Position: Sitting, BP Cuff Size: Regular Adult) Pulse (P) 72 Ht 172.7 cm (5' 8 ) Wt 81.2 kg (179 lb) BMI 27.22 kg/m Physical Exam Constitutional: General: He is not in acute distress. Appearance: He is not ill-appearing. Cardiovascular: Rate and Rhythm: Normal rate and regular rhythm. Heart sounds: No murmur heard. No gallop. Pulmonary: Breath sounds: Normal breath sounds. Abdominal: Tenderness: There is no abdominal tenderness. Musculoskeletal: Right lower leg: No edema. Left lower leg: No edema. Neurological: Mental Status: He is alert. Gait: Gait normal. Psychiatric: Mood and Affect: Mood normal. Behavior: Behavior normal. Labs TBD. Assessment and Plan 1. Medicare annual wellness visit, subsequent - ICD9: V70.0, ICD10: Z00.00 (primary diagnosis) See wellness note. 2. Essential hypertension - ICD9: 401.9, ICD10: I10 - Controlled 3. Hyperlipidemia, unspecified hyperlipidemia type - ICD9: 272.4, ICD10: E78.5 - Control undetermined, due for labs - Continue current medications - Counseled on healthy diet and regular exercise 4. Relationship problems - ICD9: 313.3, ICD10: Z63.9 - We discussed referral for joint counseling. He will discuss this with his spouse and call back. Juanito Worley MD Aly Nina is a 78 year old male here for a Medicare wellness visit. Health Risk Assessment In general, health is: Very good Concerns with balance:Not at all Concerns with teeth or dentures:Not at all Concerns with sexual function:Not at all [place] anxious, stressed, angry, irritable, lonely, isolated, or had thoughts of hurting themself: Not at all Has little interest or pleasure in doing things: Not at all Bothered by feeling down, depressed, or hopeless: Not at all Needs help with grocery shopping, cooking, housework, bathing, grooming, dressing, eating, sitting or standing, walking, using the toilet, handling finances, taking medications, using the telephone, or driving: No Following safety precautions in the home environment and vehicle: removed throw rugs from floors, installed grab bars in the bathroom, handrails in stairwells, having adequate lighting, wearing seatbelt at all times?: Yes Smokes cigarettes, vapes, or chew tobacco: No Eats healthy foods including fruits, vegetables, whole grains, and fiber-rich foods: Several days Number of days per week engages in exercise: 7 days Average alcohol consumption: Never Current Providers Specialists: I have reviewed specialist-related care of the patient in the medical record. Current care team: Patient Care Team: Juanito Worley MD as PCP - General (Internal Medicine) Outside specialists seen: Dr. Duncan Carlos, urology. Dr. Sandra, ophthalmology. [facility]. Medical/Family history review Reviewed and updated problem list, medical/surgical/family/social history, medications, and allergies. Opioid use review Patient is not currently using opioids. Depression screening Depression Screening PHQ-2 Score MERARY-2 Total Score 07/30/2022 0 - Depression screening tool completed and reviewed. Based on score and interview, patient is not at risk for depression. Screening tool discussed with patient, and I recommended no further intervention at this time. Cognitive screening Mini Cog Score: 5 Functional Observation Was the patient's timed Up & Go test unsteady or ? 12 seconds? No Advance Care Planning End of Life planning discussed, including patient's advanced directive wishes: Yes Measurements Ht 5' 8 (1.73m) Wt 179 lb (81.2kg) BMI 27.22 kg/(m^2). Visual acuity (required for Welcome to Medicare): follows with optometry/ophthalmology and Right: 20/40 Left: 20/ 25 Both: 20/15 Hearing Evaluation: within normal limits Assessment/Plan Medicare annual wellness visit, subsequent (Z00.00) - Counseled on healthy diet and regular exercise - Fall avoidance - Vaccines recommended COVID-19, Influenza, and Shingrix at pharmacy - Depression screening documented in this encounter [facility] 01-19-2023 Note HNO ID: [id number] Author: RT Chris(R) Service: ? Author Type: Software Configuration Engineer Type: Progress Notes Filed: 01/19/2023 10:22 AM Note Text: Radiology Service Progress Note PATIENT NAME: Aly Nina DATE OF SERVICE: January 19, 2023 TIME: 10:07 AM PATIENT IDENTITY VERIFICATION COMPLETED USING TWO (2) IDENTIFIERS: Name and Date of confirmed by patient verbally. FALL SCREENING: Has the patient had 2 falls in the last year or 1 fall with injury or currently using an Ambulatory Assistive Device (Walker, Cane, Wheelchair, Crutches, etc.)? No PATIENT GENDER DATA: Male PATIENT RELEVANT IMPLANT DATA REVIEWED: Yes RADIOLOGY DEPARTMENT: General X-ray: Exam(s) Completed: Lower Extremity X-Ray(s): Femur, Right PERIPHERAL IV DATA: Not applicable SIGNED BY: RT Chris(R) January 19, 2023 10:07 AM [facility] 01-19-2023 Note HNO ID: [id number] Author: Juanito Worley MD Service: ? Author Type: Physician Type: Progress Notes Filed: 01/19/2023 10:09 AM Note Text: This note was created using [employer] computerriter. Subjective Aly Nina is a 77 year old male here with his . His hypertension and lipids were controlled. He complained of right anterior thigh ache every morning for 6 months, with no radiation. Pain was aggravated by weight bearing of the right leg, and relieved with activity. He did not feel this was related to spinal stenosis pain. He was interested in local pain management referral, just in case his low back pain flares up again. Dr. Mckeon offered surgery, which he declined at this time. Review of Systems Constitutional: Negative. Respiratory: Negative. Cardiovascular: Negative. Gastrointestinal: Negative. Musculoskeletal: Negative for back pain and gait problem. Neurological: Negative. ACTIVE PROBLEM LIST Hyperlipidemia Actinic Keratoses Bph With Urinary Obstruction Bcc (Basal Cell Carcinoma of Skin) Elevated Prostate Specific Antigen (Psa) Impaired Fasting Blood Sugar Nocturnal Leg Cramps Primary Osteoarthritis of Right Hip Essential Hypertension Spinal Stenosis of Lumbar Region Without Neurogenic Claudication Current Outpatient Medications Medication Sig atorvastatin (LIPITOR) 40 mg tablet Take 1 tablet by mouth daily at bedtime. For cholesterol. amLODIPine (NORVASC) 10 mg tablet Take 1 tablet by mouth once daily. No current facility-administered medications for this visit. Objective BP 126/58 (BP Site: Left Arm, BP Position: Sitting) Pulse 72 Temp 36.3 ?C (97.3 ?F) (Temporal) Resp 12 Wt 83.5 kg (184 lb) BMI 27.17 kg/m? Physical Exam Constitutional: General: He is not in acute distress. Appearance: He is not ill-appearing. Cardiovascular: Rate and Rhythm: Normal rate and regular rhythm. Heart sounds: No murmur heard. No gallop. Pulmonary: Effort: Pulmonary effort is normal. Breath sounds: Normal breath sounds. Abdominal: Palpations: Abdomen is soft. Tenderness: There is no abdominal tenderness. Musculoskeletal: Right hip: Normal. No tenderness or crepitus. Normal range of motion. Normal strength. Right upper leg: Normal. No deformity or tenderness. Right knee: Normal. Neurological: Mental Status: He is alert. Assessment and Plan 1. Pain of right thigh - ICD9: 729.5, ICD10: M79.651 (primary diagnosis) If negative, this is likely related to lumbar spinal stenosis. - XR FEMUR GENERAL 2V AP/LAT RIGHT 2. Hyperlipidemia, unspecified hyperlipidemia type - ICD9: 272.4, ICD10: E78.5 - good control - ATORVASTATIN 40 MG TABLET - COMP METABOLIC PANEL - LIPID PANEL BASIC 3. Essential hypertension - ICD9: 401.9, ICD10: I10 - good control - AMLODIPINE 10 MG TABLET - CBC 4. Spinal stenosis of lumbar region without neurogenic claudication - ICD9: 724.02, ICD10: M48.[address] Nils Boyce. Handicap parking letter. - CONSULT TO PAIN MGT 5. Need for COVID-19 vaccine - ICD9: V04.89, ICD10: Z23 - [employer] COVID-19 BIVALENT BOOSTER VACCINE, AGE 12+ YR Juanito Worley MD [facility] 01-19-2023 Instructions Juanito Worley MD - 01/19/2023 9:36 AM EST Fasting blood work in June. documented in this encounter [facility] 01-19-2023 History of Presen t illness Narrative This note was created using [employer] computerriter. Subjective Aly Nina is a 77 year old male here with his . His hypertension and lipids were controlled. He complained of right anterior thigh ache every morning for 6 months, with no radiation. Pain was aggravated by weight bearing of the right leg, and relieved with activity. He did not feel this was related to spinal stenosis pain. He was interested in local pain management referral, just in case his low back pain flares up again. Dr. Mckeon offered surgery, which he declined at this time. Review of Systems Constitutional: Negative. Respiratory: Negative. Cardiovascular: Negative. Gastrointestinal: Negative. Musculoskeletal: Negative for back pain and gait problem. Neurological: Negative. ACTIVE PROBLEM LIST Hyperlipidemia Actinic Keratoses Bph With Urinary Obstruction Bcc (Basal Cell Carcinoma of Skin) Elevated Prostate Specific Antigen (Psa) Impaired Fasting Blood Sugar Nocturnal Leg Cramps Primary Osteoarthritis of Right Hip Essential Hypertension Spinal Stenosis of Lumbar Region Without Neurogenic Claudication Current Outpatient Medications Medication Sig atorvastatin (LIPITOR) 40 mg tablet Take 1 tablet by mouth daily at bedtime. For cholesterol. amLODIPine (NORVASC) 10 mg tablet Take 1 tablet by mouth once daily. No current facility-administered medications for this visit. Objective BP 126/58 (BP Site: Left Arm, BP Position: Sitting) Pulse 72 Temp 36.3 C (97.3 F) (Temporal) Resp 12 Wt 83.5 kg (184 lb) BMI 27.17 kg/m Physical Exam Constitutional: General: He is not in acute distress. Appearance: He is not ill-appearing. Cardiovascular: Rate and Rhythm: Normal rate and regular rhythm. Heart sounds: No murmur heard. No gallop. Pulmonary: Effort: Pulmonary effort is normal. Breath sounds: Normal breath sounds. Abdominal: Palpations: Abdomen is soft. Tenderness: There is no abdominal tenderness. Musculoskeletal: Right hip: Normal. No tenderness or crepitus. Normal range of motion. Normal strength. Right upper leg: Normal. No deformity or tenderness. Right knee: Normal. Neurological: Mental Status: He is alert. Assessment and Plan 1. Pain of right thigh - ICD9: 729.5, ICD10: M79.651 (primary diagnosis) If negative, this is likely related to lumbar spinal stenosis. - XR FEMUR GENERAL 2V AP/LAT RIGHT 2. Hyperlipidemia, unspecified hyperlipidemia type - ICD9: 272.4, ICD10: E78.5 - good control - ATORVASTATIN 40 MG TABLET - COMP METABOLIC PANEL - LIPID PANEL BASIC 3. Essential hypertension - ICD9: 401.9, ICD10: I10 - good control - AMLODIPINE 10 MG TABLET - CBC 4. Spinal stenosis of lumbar region without neurogenic claudication - ICD9: 724.02, ICD10: M48.[address] Nils Boyce. Handicap parking letter. - CONSULT TO PAIN MGT 5. Need for COVID-19 vaccine - ICD9: V04.89, ICD10: Z23 - [employer] COVID-19 BIVALENT BOOSTER VACCINE, AGE 12+ YR Juanito Worley MD documented in this encounter [facility] 01-11-2023 Miscellaneous Notes Formattin g of this note might be different from the original. Spoke with patient. Given message from provider's office. Patient verbalizes understanding. Mary Jane Salazar RN Patient is not due for routine labs Barb Hernandez APRN.COIN ROLLING MACHINE OPERATOR Patient came to get lab work done before appointment on 01/19/[address] labs if needed and call patient. documented in this encounter [facility] 07-30-2022 Instructions Juanito Worley MD - 07/30/2022 8:22 AM EDT Screening schedule The following prevention plan is recommended: SHINGRIX VACCINE(2 of 3) due on 04/27/2015 ADVANCE DIRECTIVE DISCUSSION Never done COVID-19 VACCINE(4 - Booster for Pfizer series) due on 05/15/2022 INFLUENZA(1) due on 07/30/2022 WHAT YOU CAN DO TO PREVENT FALLS Many falls can be prevented. By making some changes, you can lower your chances of falling. Four things YOU can do to prevent falls for you* and your caregiver 1. Begin a regular exercise program Exercise is one of the most important ways to lower your chances of falling. It makes you stronger and helps you feel better. Exercises that improve balance and coordination (like [place] [employer]) are the most helpful. Lack of exercise leads to weakness and increases your chances of falling. Ask your doctor or health care provider about the best type of exercise program for you. 2. Have your health care provider review your medicines Have your doctor or pharmacist review all the medicines you take, even [id number] medicines. As you get older, the way medicines work in your body can change. Some medicines, or combinations of medicines, can make you sleepy or dizzy and can cause you to fall. 3. Have your vision checked Have your eyes checked by an eye doctor at least once a year. You may be wearing the wrong glasses or have a condition like glaucoma or cataracts that limits your vision. Poor vision can increase your chances of falling. 4. Make your home safer About half of all falls happen at home. To make your home safer: Remove things you can trip over (like papers, books, clothes, and shoes) from stairs and places where you walk. Remove small throw rugs or use double-sided tape to keep the rugs from slipping. Keep items you use often in cabinets you can reach easily without using a step stool. Have grab bars put in next to your toilet and in the tub or shower. Use non-slip mats in the bathtub and on shower floors. Improve the lighting in your home. As you get older, you need brighter lights to see well. Hang light-weight curtains or shades to reduce glare. Have handrails and lights put in on all staircases. Wear shoes both inside and outside the house. Avoid going barefoot or wearing slippers. For more information, contact: Centers for Disease Control and Prevention www.cdc.gov/injury * This information may not apply if you have certain medical conditions. documented in this encounter [facility] 07-30-2022 History of Presen t illness Narrative Aly Nina is a 77 year old male here for a Medicare Subsequent Annual Wellness Visit Health Risk Assessment In general, health is: Good Concerns with tiredness, difficulties with sexual function, balance, teeth/dentures: Several days [place] anxious, stressed, angry, irritable, lonely, isolated, or had thoughts of hurting themself: Not at all Eats healthy foods including fruits, vegetables, whole grains, and fiber-rich foods: Several days Has little interest or pleasure in doing things: Not at all Bothered by feeling down, depressed, or hopeless: Not at all Needs help with grocery shopping, cooking, housework, bathing, grooming, dressing, eating, sitting or standing, walking, using the toilet, handling finances, taking medications, using the telephone, or driving: No Following safety precautions in the home environment and vehicle: removed throw rugs from floors, installed grab bars in the bathroom, handrails in stairwells, having adequate lighting, wearing seatbelt at all times?: Yes Smokes cigarettes, vapes, or chew tobacco: No Number of days per week engages in exercise: 7 days Average alcohol consumption: Never Current Providers Patient Care Team: Juanito Worley MD as PCP - General (Internal Medicine) Specialists: I have reviewed specialist-related care of the patient in the medical record. and Outside specialists seen: Dr. Hollingsworth, orthopedics. Dr. Mckeon, spine . Dr. Carlos, urology. Dr. Sandra, ophthalmology. Medical/Family history review Reviewed and updated problem list, surgical history, and medication list. Opioid use review Patient is not currently using opioids. Depression screening Depression screening tool completed and reviewed. Based on score and interview, patient is not at risk for depression. Screening tool discussed with patient, and I recommended no further intervention at this time. Cognitive screening Mini-cog score: 5/5 Cognitive screening reviewed and no further action needed (score 3-5) Functional Observation Was the patient's timed Up & Go test unsteady or longer than 30 seconds? No Advance Care Planning End of Life planning discussed, including patient's advanced directive wishes: Yes. None made yet. Measurements BP 122/68 Pulse 72 Temp (Src) 97 (Temporal) Resp 16 Ht 5' 9 (1.75m) Wt 181 lb (82.1kg) BMI 26.72 kg/(m^2). Visual acuity: follows with optometry/ophthalmology Hearing Evaluation: within normal limits Assessment/Plan - Counseled on healthy diet and regular exercise - Fall avoidance - Vaccines recommended COVID-19, Influenza, and Shingrix at pharmacy - Depression screening Juanito Worley MD This note was created using [employer] computerriter. Subjective Aly Nina is a 77 year old male. He felt well in general. He was having gait issues and working with [facility] for physical therapy. We reviewed his lab results. Review of Systems Constitutional: Negative. Respiratory: Negative. Cardiovascular: Negative. Musculoskeletal: Positive for gait problem. ACTIVE PROBLEM LIST Hyperlipidemia Actinic Keratoses Bph With Urinary Obstruction Bcc (Basal Cell Carcinoma of Skin) Elevated Prostate Specific Antigen (Psa) Impaired Fasting Blood Sugar Nocturnal Leg Cramps Primary Osteoarthritis of Right Hip Essential Hypertension Spinal Stenosis of Lumbar Region Without Neurogenic Claudication Current Outpatient Medications Medication Sig atorvastatin (LIPITOR) 40 mg tablet Take 1 tablet by mouth daily at bedtime. For cholesterol. amLODIPine (NORVASC) 10 mg tablet Take 1 tablet by mouth once daily. No current facility-administered medications for this visit. Objective BP 122/68 (BP Site: Left Arm, BP Position: Sitting, BP Cuff Size: Large Adult) Pulse 72 Temp 36.1 C (97 F) (Temporal) Resp 16 Ht 175.3 cm (5' 9 ) Wt 82.1 kg (181 lb) BMI 26.73 kg/m Physical Exam Constitutional: Appearance: He is not ill-appearing. Cardiovascular: Rate and Rhythm: Normal rate and regular rhythm. Heart sounds: No murmur heard. No gallop. Pulmonary: Breath sounds: Normal breath sounds. Musculoskeletal: Right lower le+ Pitting Edema present. Left lower le+ Pitting Edema present. Neurological: General: No focal deficit present. Mental Status: He is alert. Gait: Gait abnormal. Comments: Using a cane. Component Latest Ref Rng & Units 07/27/2022 Protein, Total 6.3 - 8.0 g/dL 6.6 Albumin 3.9 - 4.9 g/dL 4.4 Calcium 8.5 - 10.2 mg/dL 8.7 Bilirubin, Total 0.2 - 1.3 mg/dL 0.6 Alkaline Phosphatase 38 - 113 U/L 81 AST 14 - 40 U/L 18 ALT 10 - 54 U/L 15 Glucose 74 - 99 mg/dL 102 (H) BUN 9 - 24 mg/dL 17 Creatinine 0.73 - 1.22 mg/dL 0.79 Sodium 136 - 144 mmol/L 141 Potassium 3.7 - 5.1 mmol/L 4.1 Chloride 97 - 105 mmol/L 105 CO2 22 - 30 mmol/L 27 Anion Gap 9 - 18 mmol/L 9 eGFR >=60 mL/min/1.73m 92 WBC 3.70 - 11.00 k/uL 5.49 RBC 4.20 - 6.00 m/uL 5.03 Hemoglobin 13.0 - 17.0 g/dL 14.3 Hematocrit 39.0 - 51.0 % 44.7 MCV 80.0 - 100.0 fL 88.9 MCH 26.0 - 34.0 pg 28.4 MCHC 30.5 - 36.0 g/dL 32.0 RDW-CV 11.5 - 15.0 % 13.6 Platelet Count 150 - 400 k/uL 222 MPV 9.0 - 12.7 fL 9.5 Absolute nRBC <0.01 k/uL <0.01 Cholesterol, Total <200 mg/dL 118 Triglyceride <150 mg/dL 40 HDL Cholesterol >39 mg/dL 59 Non HDL Cholesterol <130 mg/dL 59 Fasting Time hrs 12 VLDL Cholesterol <30 mg/dL 8 TC:HDL Ratio <5.10 2.00 LDL Cholesterol <100 mg/dL 51 LDL:HDL Ratio <2.54 0.86 Assessment and Plan 1. Medicare annual wellness visit, subsequent - ICD9: V70.0, ICD10: Z00.00 (primary diagnosis) - ADVANCE CARE PLAN DISCUSSION 2. Essential hypertension - ICD9: 401.9, ICD10: I10 - good control 3. Impaired fasting blood sugar - ICD9: 790.21, ICD10: R73.01 Stable. 4. Hyperlipidemia, unspecified hyperlipidemia type - ICD9: 272.4, ICD10: E78.5 - good control 5. Need for influenza vaccination - ICD9: V04.81, ICD10: Z23 - INFLUENZA SEASONAL QUADRIVALENT HIGH DOSE AGE 65+ Juanito Worley MD documented in this encounter [facility] 04-09-2022 History of Presen t illness Narrative FOLLOW UP VISIT - HERNIA NAME: Aly Norman V[facility] NO.: [id number] DATE OF SERVICE: 04/09/2022 : 1945 REFERRING PHYSICIAN: Juanito Worley MD Aly is a patient I am following for a recurrent left inguinal hernia. Aly is a 76 year old male with a complaint of a bulge and discomfort in his left inguinal region. The patient notes discomfort in this area with straining. The symptoms have increased, over the past few months. The patient notes no symptoms of bowel obstruction and denies nausea or vomiting. The patient was seen by his primary care physician who felt the patient has a hernia. Aly was referred for evaluation and treatment. He had an error in his record listed as having had advanced bladder cancer and undergone a bladder resection with urostomy. This was removed from his records as he did not have this issue. I performed a previous bilateral laparoscopic inguinal hernia repair on April 13, 2005 for bilateral inguinal hernias at that time. The patient notes no symptoms of bowel obstruction and denies nausea or vomiting. The patient was seen by his primary care physician who felt the patient has a hernia. Ayl was referred for evaluation and treatment. I performed a open left inguinal hernia repair with mesh on April 02, 2022. The patient was found to have a recurrent direct left inguinal hernia. The patient currently notes swelling in the area which is improving. his appetite has been good. he denies fever, chills or abdominal pain. he does note some mild incisional discomfort. he notes no bulges at the operative site VITALS: There were no vitals taken for this visit. On examination, the abdomen is benign. The incision is healing well without signs of infection or inflammation. There are no signs of recurrent hernia formation. Assessment IMPRESSION: status post open left recurrent inguinal hernia repair with mesh PLAN: If the patient notes any problems, he should contact me immediately. he may return to his regular activities as tolerated, with the exception of no lifting greater than 20 pounds for the next 7 weeks. Diagnoses: (K40.90) Left inguinal hernia (primary encounter diagnosis) Return to Clinic: The patient is instructed to follow-up with me as needed. Adán Curran MD documented in this encounter [facility] 03-19-2022 History of Presen t illness Narrative Patient scheduled 04/02 Cee Oh HISTORY AND PHYSICAL Aly Nina 1945 REFERRING PHYSICIAN: Juanito Worley MD CHIEF COMPLAINT: Consult (Left Inguinal Hernia) HPI: Aly is a 76 year old male with a complaint of a bulge and discomfort in his left inguinal region. The patient notes discomfort in this area with straining. The symptoms have increased, over the past [...] for bilateral inguinal hernias at that time. Had seen the patient 2018 for follow-up. I incorrectly had this listed as a right inguinal hernia at that visit the patient notes that his symptoms always been on the left side. The patient notes no symptoms of bowel obstruction and denies nausea or vomiting. The patient was seen by his primary care physician who felt the patient has a hernia. Aly was referred for evaluation and treatment. PAST MEDICAL HISTORY Diagnosis Date Actinic keratoses 11/07/2009 Mohs' surgery left temporal 2008 Nose prior to that BCC (basal cell carcinoma of skin) 10/24/2012 [facility]. Bladder cancer (HCC) BPH with urinary obstruction 11/07/2009 COVID 08/22/2021 had MAB treatment ~08/26/2021 Essential hypertension 10/20/2017 Headache(784.0) Hemorrhoid Hyperlipidemia 11/07/2009 Inguinal hernia Spinal stenosis of lumbar region without neurogenic claudication 01/27/2022 PAST SURGICAL HISTORY Procedure Laterality Date COLONOSCOPY 12/21/2003 COLONOSCOPY FLX DX W/COLLJ SPEC WHEN PFRMD 02/21/2015 few diverticula, otherwise normal LX CYSTECTOMY,CONDUIT, BPLND MOHS MICROGRAPHIC H/N/H/F/G 1ST STAGE 5 BLOCKS 2011 RT NECK MOHS MICROGRAPHIC H/N/H/F/G 1ST STAGE 5 BLOCKS 2011 UPPER LIP PAST SURGICAL HISTORY OF various actinic keratoses, nose and left scalp, BCC Followed by DERM PAST SURGICAL HISTORY OF PAST SURGICAL HISTORY OF 10/22/2021 TURP REPAIR INGUINAL HERNIA Bilateral 04/13/2005 bilateral inguinal hernias with mesh, Dr. Curran TOTAL HIP REPLACEMENT Right 09/10/2021 TRANSURETHRAL ELEC-SURG PROSTATECTOM 10/22/2021 Current Outpatient Medications Medication Sig atorvastatin (LIPITOR) 40 mg tablet Take 1 tablet by mouth daily at bedtime. For cholesterol. amLODIPine (NORVASC) 10 mg tablet Take 1 tablet by mouth once daily. sennosides (SENNA-C ORAL) Take by mouth twice daily. As needed (Patient not taking: Reported on 03/19/2022 ) No current facility-administered medications for this visit. ALLERGIES: Patient has no known allergies. PERSONAL HISTORY: Social History Tobacco Use Smoking status: Former Smoker Years: 10.00 Types: Pipe Quit date: 11/29/1982 Years since quittin.3 Smokeless tobacco: Former User Vaping Use Vaping Use: Never used Substance Use Topics Alcohol use: No Drug use: No FAMILY HISTORY: FAMILY HISTORY Problem Relation Age of Onset Cancer Father throat Breast Cancer Mother Stroke Maternal Grandmother Colon Cancer No Family History Prostate Cancer No Family History other (pulmonary fibrosis [Other]) Mother Smoker Diabetes Mother Stroke Paternal Grandmother REVIEW OF SYMPTOMS: The review of systems data was entered by the nurse and reviewed by va Nursing Notes: Alyssa Tena 03/19/2022 7:15 AM Signed REVIEW OF SYSTEMS: General: The patient denies fatigue, denies weight loss, denies weight gain, denies feeling hot, and denies feelings of cold. Eyes: The patient denies glaucoma, denies eye injury/surgery, wears glasses or contacts. Ear/Nose/Throat: The patient NOTES allergies, denies hayfever, denies ear infections, and [...] gallbladder problems, denies black or tarry stools, NOTES hemorrhoids, NOTES bleeding from rectum, denies diverticulitis, denies constipation, [...] and denies hormonal problems. Hematologic: The patient NOTES a history of bruising, denies bleeding, and denies anemia, denies blood clots. Infections: The patient NOTES a history of measles and mumps, denies rheumatic fever, and denies sexually transmitted diseases. Musculoskeletal: The patient denies back pain/injury, NOTES back problems, denies sciatica, denies knee/foot trouble, NOTES arthritis, or denies gout. When was patient's last Mammogram screening? N/A Last Colonoscopy: 02/11/2015 Alyssa Tena PHYSICAL EXAMINATION: General: The patient is 76 year old male, well nourished, well hydrated in no acute distress. The patient is oriented to time, place, and person. VITALS: Blood pressure 146/74, pulse 82, temperature 36.7 C (98.1 F), height 177.8 cm (5' 10 ), weight 79.8 kg (176 lb), SpO2 97 %. Body mass index is 25.25 kg/m . HEENT: Normal cephalic, ataumatic, pupils are equally round, sclera are anicteric, mucous membranes are moist, oropharynx is clear. Neck has no masses, asymmetry or lymphadenopathy. Thyroid is unremarkable. Respiratory: Clear to auscultation and percussion. Normal respiratory excursion and pattern. Cardiac: Examination is regular rate and rhythm. Abdominal exam: Soft, nontender, with no palpable masses. No hepatosplenomegaly. A moderate reducible left inguinal hernia, no right inguinal or umbilical hernias are noted. Rectal exam: exam deferred Extremities: no clubbing, cyanosis or edema. No adenopathy. Other: LABORATORY VALUES: As Noted RADIOLOGIC STUDIES: As Noted Assessment IMPRESSION: left inguinal hernia PLAN: My plan is to perform a open left inguinal hernia repair with mesh. The planned [...] to Dr. Juanito Worley MD. Diagnoses: (K40.90) Left inguinal hernia Anticipated CPT Code: open left inguinal hernia repair with mesh - recurrent - [id number] Anticipated Anesthetic: MAC with local Patient weight: Blood pressure 146/74, pulse 82, temperature 36.7 C (98.1 F), height 177.8 cm (5' 10 ), weight 79.8 kg (176 lb), SpO2 97 %. BMI: Body mass index is 25.25 kg/m . 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 Adán Curran MD documented in this encounter [facility] 03-19-2022 Instructions Adán Curran MD - 03/19/2022 7:38 AM EDT The following instructions are important for you related to your office visit today with the [facility]. INSTRUCTIONS FOR YOUR SURGICAL PROCEDURE - HERNIA - We discussed that a hernia is a weakness in the fascia - the strength layer of the abdominal wall. We discussed would rather you hernias repaired with mesh or sutures, open or laparoscopically, it is important to allow your bodies collagen to form a strong permanent repair to minimize the risk of hernia recurrence. It is very important that no heavy lifting be performed for 8 weeks following surgery. We discussed the risks and benefits of your planned procedure. If you have any additional questions, please contact our office immediately. Preadmission testing is an important part of preparation for your procedure. All laboratory studies, x-rays, and additional testing must be available for the preadmission testing staff to help ready you for surgery. You should not take aspirin or other blood thinners for one week prior to surgery unless instructed differently. You should not have anything to eat or drink after midnight the night prior to your surgery. You should wear comfortable clothes for your procedure. Please understand that the operating room schedule is an estimated time for your surgical procedure. Your procedure may be somewhat earlier or somewhat later than the estimated time. You'll be discharged home with postoperative instructions and typically pain medications. Please be aware that many pain medications may cause nausea. You should typically eat light foods as you take your pain medications. Your dressing will usually be able to be removed two to three days following surgery. You may typically shower three days after surgery. If you have Steri-Strips on your incision (little white tapes) you should leave these in place until they fall off. You will typically have a followup office visit 1 to 2 weeks after surgery. Again, if you have any difficulties or concerns, contact our office immediately. If you note any additional difficulties, questions, or concerns, you should contact our office immediately @ [phone] and ask to be transferred to the General Surgery department. documented in this encounter [facility] 03-19-2022 Nurse Note REVIEW OF SYSTEMS: General: The patient denies fatigue, denies weight loss, denies weight gain, denies feeling hot, and denies feelings of cold. Eyes: The patient denies glaucoma, denies eye injury/surgery, wears glasses or contacts. Ear/Nose/Throat: The patient NOTES allergies, denies hayfever, denies ear infections, and [...] gallbladder problems, denies black or tarry stools, NOTES hemorrhoids, NOTES bleeding from rectum, denies diverticulitis, denies constipation, [...] and denies hormonal problems. Hematologic: The patient NOTES a history of bruising, denies bleeding, and denies anemia, denies blood clots. Infections: The patient NOTES a history of measles and mumps, denies rheumatic fever, and denies sexually transmitted diseases. Musculoskeletal: The patient denies back pain/injury, NOTES back problems, denies sciatica, denies knee/foot trouble, NOTES arthritis, or denies gout. When was patient's last Mammogram screening? N/A Last Colonoscopy: 02/11/2015 Alyssa Tena documented in this encounter [facility] documented as of this encounter (statuses as of 07/30/2022) [facility] History of Past illness Narrative* Problem Noted Date Resolved Date Left inguinal hernia 07/05/2018 07/30/2022 Dizziness 06/30/2017 01/03/2018 Headache(784.0) 10/24/2012 12/28/2016 Last Assessment & Plan: Aly Nina is a 67 year old year old male who presents with complaint of recent headache(s) for 1 month. Pain is located unilateral right and described as tenderness. Headaches are described as being mild in intensity. Individual headaches begin first thing in the morning and is associated with symptoms of none. The patient is not aware of any specific triggers. Headaches are intermittent may last from seconds, and occur 4-5 times during the morning and have been occuring. Symptoms have been treated with nothing so far. The patient denies numbness, weakness, slurred speech, visual changes, dizziness, clumsiness, difficulty with gait and change in level of consciousness. He denies history of head injury or trauma. Currently, he felt these to be resolving. He also has general headaches that were longerstanding and he called them, caffeine headaches. Aortic atherosclerosis 6 Overview: mild on AAA screening documented as of this encounter (statuses as of 01/11/2023) [facility] History of Past illness Narrative* Problem Noted Date Resolved Date Left inguinal hernia 07/05/2018 07/30/2022 Dizziness 06/30/2017 01/03/2018 Headache(784.0) 10/24/2012 12/28/2016 Last Assessment & Plan: Aly Nnia is a 67 year old year old male who presents with complaint of recent headache(s) for 1 month. Pain is located unilateral right and described as tenderness. Headaches are described as being mild in intensity. Individual headaches begin first thing in the morning and is associated with symptoms of none. The patient is not aware of any specific triggers. Headaches are intermittent may last from seconds, and occur 4-5 times during the morning and have been occuring. Symptoms have been treated with nothing so far. The patient denies numbness, weakness, slurred speech, visual changes, dizziness, clumsiness, difficulty with gait and change in level of consciousness. He denies history of head injury or trauma. Currently, he felt these to be resolving. He also has general headaches that were longerstanding and he called them, caffeine headaches. Aortic atherosclerosis 6 Overview: mild on AAA screening documented as of this encounter (statuses as of 01/19/2023) [facility] History of Past illness Narrative* Problem Noted Date Diagnosed Date Resolved Date Left inguinal hernia 07/05/2018 022 Dizziness 06/30/2017 01/03/2018 Headache(784.0) 10/24/2012 12/28/2016 Last Assessment & Plan: Aly Nina is a 67 year old year old male who presents with complaint of recent headache(s) for 1 month. Pain is located unilateral right and described as tenderness. Headaches are described as being mild in intensity. Individual headaches begin first thing in the morning and is associated with symptoms of none. The patient is not aware of any specific triggers. Headaches are intermittent may last from seconds, and occur 4-5 times during the morning and have been occuring. Symptoms have been treated with nothing so far. The patient denies numbness, weakness, slurred speech, visual changes, dizziness, clumsiness, difficulty with gait and change in level of consciousness. He denies history of head injury or trauma. Currently, he felt these to be resolving. He also has general headaches that were longerstanding and he called them, caffeine headaches. Aortic atherosclerosis 12/26 Overview: mild on AAA screening documented as of this encounter (statuses as of 07/30/2023) [facility] History of Past illness Narrative* Problem Noted Date Resolved Date Dizziness 06/30/2017 01/03/2018 Headache(784.0) 10/24/2012 12/28/2016 Last Assessment & Plan: Aly Nina is a 67 year old year old male who presents with complaint of recent headache(s) for 1 month. Pain is located unilateral right and described as tenderness. Headaches are described as being mild in intensity. Individual headaches begin first thing in the morning and is associated with symptoms of none. The patient is not aware of any specific triggers. Headaches are intermittent may last from seconds, and occur 4-5 times during the morning and have been occuring. Symptoms have been treated with nothing so far. The patient denies numbness, weakness, slurred speech, visual changes, dizziness, clumsiness, difficulty with gait and change in level of consciousness. He denies history of head injury or trauma. Currently, he felt these to be resolving. He also has general headaches that were longerstanding and he called them, caffeine headaches. Aortic atherosclerosis 6 Overview: mild on AAA screening documented as of this encounter (statuses as of 03/19/2022) [facility] History of Past illness Narrative* Problem Noted Date Resolved Date Dizziness 06/30/2017 01/03/2018 Headache(784.0) 10/24/2012 12/28/2016 Last Assessment & Plan: Aly Nina is a 67 year old year old male who presents with complaint of recent headache(s) for 1 month. Pain is located unilateral right and described as tenderness. Headaches are described as being mild in intensity. Individual headaches begin first thing in the morning and is associated with symptoms of none. The patient is not aware of any specific triggers. Headaches are intermittent may last from seconds, and occur 4-5 times during the morning and have been occuring. Symptoms have been treated with nothing so far. The patient denies numbness, weakness, slurred speech, visual changes, dizziness, clumsiness, difficulty with gait and change in level of consciousness. He denies history of head injury or trauma. Currently, he felt these to be resolving. He also has general headaches that were longerstanding and he called them, caffeine headaches. Aortic atherosclerosis 6 Overview: mild on AAA screening documented as of this encounter (statuses as of 04/09/2022) [facility] Left inguinal hernia Inguinal hernia without mention of obstruction or gangrene, unilateral or unspecified, (not specified as recurrent) [facility] Diagnosis Left inguinal hernia- Primary Inguinal hernia without mention of obstruction or gangrene, unilateral or unspecified, (not specified as recurrent) [facility] Diagnosis Medicare annual wellness visit, subsequent- Primary Routine general medical examination at a health care facility Essential hypertension Unspecified essential hypertension Impaired fasting blood sugar Impaired fasting glucose Hyperlipidemia, unspecified hyperlipidemia type Need for influenza vaccination Need for prophylactic vaccination and inoculation against influenza [facility] Diagnosis Pain of right thigh- Primary Pain in limb Hyperlipidemia, unspecified hyperlipidemia type Essential hypertension Unspecified essential hypertension Spinal stenosis of lumbar region without neurogenic claudication Spinal stenosis, lumbar region, without neurogenic claudication Need for COVID-19 vaccine [facility] Diagnosis Medicare annual wellness visit, subsequent- Primary Routine general medical examination at a health care facility Essential hypertension Unspecified essential hypertension Hyperlipidemia, unspecified hyperlipidemia type Relationship problems Relationship problems specific to childhood and adolescence documented in this encounter [facility] Summary Purpose Family History No Family History Records FoundNo Family History Records FoundNo Family History Records Found Advance Directives No Advanced Directives Records FoundDocuments on File Type Date Recorded 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 Advance Directive(s) 04/02/2022 12:03 PM Reason for Referral Specialty Diagnoses / Procedures Referred By Joaquin hsieh Referred To Contact Pain Management Diagnoses Spinal stenosis of lumbar region without neurogenic claudication Procedures CONSULT TO PAIN MGT Juanito Worley MD [address] [place] [id number] Referral ID Status Reason Start Date Expiration Date Visits Requested Visits Authorized [id number] Ref Not Required PCP Requested Referral 01/19/2023 01/19/2024 1 1 Specialty Diagnoses / Procedures Referred By Joaquin hsieh Referred To Contact XR IMAGING Diagnoses Pain of right thigh Procedures XR FEMUR GENERAL 2V AP/LAT RIGHT RADIOLOGIC EXAMINATION FEMUR MINIMUM 2 VIEWS Juanito Worley MD [address] [place] [id number] Xr Imaging Referral ID Status Reason Start Date Expiration Date V isits Requested Visits Authorized [id number] Closed Auto-Generate d Referral 01/19/2023 02/18/2024 1 1 Additional Source Comments (unrecognized sect ion and content) No Status Records FoundNo Status Records FoundNo Status Records Found INFORMATION SOURCE (unrecogn ized section and content) DATE CREATED AUTHOR AUTHOR'S ORGANIZ ATION 04/03/2022 [facility] DATE CREATED AUTHOR AUTHOR'S ORGANIZ ATION 07/31/2023 [facility] Source Comments (unrecognize d section and content) In the event this informatio n is protected by the Federal Confidentiality of Alcohol and Drug Abuse Patient Records regulations: The Federal rules restrict any use of the information to criminally investigate or prosecute any alcohol or drug abuse patient.[facility] the event this information is protected by the Federal Confidentiality of Alcohol and Drug Abuse Patient Records regulations: The Federal rules restrict any use of the information to criminally investigate or prosecute any alcohol or drug abuse patient.[facility] the event this information is protected by the Federal Confidentiality of Alcohol and Drug Abuse Patient Records regulations: The Federal rules restrict any use of the information to criminally investigate or prosecute any alcohol or drug abuse patient.[facility] the event this information is protected by the Federal Confidentiality of Alcohol and Drug Abuse Patient Records regulations: The Federal rules restrict any use of the information to criminally investigate or prosecute any alcohol or drug abuse patient.[facility] the event this information is protected by the Federal Confidentiality of Alcohol and Drug Abuse Patient Records regulations: The Federal rules restrict any use of the information to criminally investigate or prosecute any alcohol or drug abuse patient.[facility] the event this information is protected by the Federal Confidentiality of Alcohol and Drug Abuse Patient Records regulations: The Federal rules restrict any use of the information to criminally investigate or prosecute any alcohol or drug abuse patient.[facility] Reason for Visit (unrecogniz ed section and content) Specialty Diagnoses / Procedures Referred By Joaquin hsieh Referred To Contact General Surgery Diagnoses Left inguinal hernia Procedures CONSULT TO GENERAL SURGERY NEW PATIENT VISIT LEVEL 5 Juanito Worley MD [address] [place] [address] Referral ID Status Reason Start Date Expiration Date Visits Requested Visits Authorized [id number] Pending Review PCP Requested Referral 07/24/2021 07/24/2022 1 1 Reason Comments Follow [place] Reason Onset Date Comments Medicare Wellness Exam 5 month follow-up Immunizations 07/30/2022 Flu vaccination Reason Comments Orders Reason Comments F/U 6 months Reason Comments Medicare Wellness Exam Care Teams (unrecognized sec tion and content) 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 Start Date End Date Juanito Worley MD [address] [place], [place] [id number] PCP - General Internal Medicine 12/26/15 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 This clinical summary was aggregated from multiple sources. Caution should be exercised in using it in the provision of clinical care. This summary normalizes information from multiple sources, and as a consequence, information in this document may materially change the coding, format and clinical context of patient data. In addition, data may be omitted in some cases. CLINICAL DECISIONS SHOULD BE BASED ON THE PRIMARY CLINICAL RECORDS. [facility]. provides no warranty or guarantee of the accuracy or completeness of information in this document.
--- OUTSIDE RECORDS SUMMARY | 2024-01-25 00:03 | XMS RPT_ITS | CCD ---
Author Name Unknown Address [address] [facility] [address] [place] [address] Organization [facility] Care Team Providers Care Inspector Dials Name Role Phone Juanito Worley MD Primary Care Provider [phone] JUANITO WORLEY Primary Care Unavailable JUANITO WORLEY Attending Unavailable JUANITO WORLEY Primary Care Unavailable JUANITO WORLEY Referring Unavailable JUANITO WORLEY Referring Unavailable JUANITO WORLEY Attending Unavailable JUANITO WORLEY Primary Care Unavailable Medications Current Medications Medication [...] 172.7 cm Juanito Worley MD Work Phone: [facility] 07-30-2023 08:05-0400 Body weight 81.19 kg Juanito Worlye MD Work Phone: [facility] 01-19-2023 10:02-0500 Diastolic blood pressure 58 mm[Hg] Juanito Worley MD Work Phone: [facility] 01-19-2023 10:02-0500 Systolic blood pressure 126 mm[Hg] Juanito Worley MD Work Phone: [facility] 01-19-2023 08:59-0500 Body temperature 97.3 [degF] Juanito Worley MD Work Phone: [facility] 01-19-2023 08:59-0500 Body weight 83.46 kg Juanito Worley MD Work Phone: [facility] 01-19-2023 08:59-0500 Heart rate 72 /min Juanito Worley MD Work Phone: [facility] 01-19-2023 08:59-0500 Respiratory rate 12 /min Juanito Worley MD Work Phone: [facility] 07-30-2022 08:20-0400 Body height 175.3 cm Juanito Worley MD Work Phone: [facility] 07-30-2022 08:20-0400 Body temperature 97 [degF] Juanito Worley MD Work Phone: [facility] 07-30-2022 08:20-0400 Body weight 82.1 kg Juanito Worley MD Work Phone: [facility] 07-30-2022 08:20-0400 Diastolic blood pressure 68 mm[Hg] Juanito Worley MD Work Phone: [facility] 07-30-2022 08:20-0400 Heart rate 72 /min Juanito Worley MD Work Phone: [facility] 07-30-2022 08:20-0400 Respiratory rate 16 /min Juanito Worley MD Work Phone: [facility] 07-30-2022 08:20-0400 Systolic blood pressure 122 mm[Hg] Juanito Worley MD Work Phone: [facility] 04-09-2022 10:44-0400 Body height 177.8 cm Adán Curran MD Work Phone: [facility] 04-09-2022 10:44-0400 Body temperature 97.81 [degF] Adán Curran MD Work Phone: [facility] 04-09-2022 10:44-0400 Body weight 78.02 kg Adán Curran MD Work Phone: [facility] 04-09-2022 10:44-0400 Diastolic blood pressure 56 mm[Hg] Adán Curran MD Work Phone: [facility] 04-09-2022 10:44-0400 Heart rate 87 /min Adán Curran MD Work Phone: [facility] 04-09-2022 10:44-0400 SaO2% (BldA) [Mass fraction] 96 % Adán Curran MD Work Phone: [facility] 04-09-2022 10:44-0400 Systolic blood pressure 112 mm[Hg] Adán Curran MD Work Phone: [facility] 03-19-2022 07:09-0400 Body height 177.8 cm Adán Curran MD Work Phone: [facility] 03-19-2022 07:09-0400 Body temperature 98.1 [degF] Adán Curran MD Work Phone: [facility] 03-19-2022 07:09-0400 Body weight 79.83 kg Adán Curran MD Work Phone: [facility] 03-19-2022 07:09-0400 Diastolic blood pressure 74 mm[Hg] Adán Curran MD Work Phone: [facility] 03-19-2022 07:09-0400 Heart rate 82 /min Adán Curran MD Work Phone: [facility] 03-19-2022 07:09-0400 SaO2% (BldA) [Mass fraction] 97 % Adán Curran MD Work Phone: [facility] 03-19-2022 07:09-0400 Systolic blood pressure 146 mm[Hg] Adán Curran MD Work Phone: [facility] Encounters Encounter Date Encounter Type Care Provider Facility Start: 07-30-2023 End: 07-30-2023 ambulatory JUANITO WORLEY Facility:[facility] Start: 07-30-2023 End: 07-30-2023 Patient encounter procedure Juanito Worley MD Work Phone: Internal [facility] Procedures Date Procedure Procedure Detail Performing Clinician Start: 01-19-2023 [employer] COVI D-19 BIVALENT BOOSTER VACCINE, AGE 12+ [...] Author Start: 07-22-2026 LIPID SCREEN LIPID SCREEN [facility] Start: 06-25-2026 Urine microalbumin profile DTAP,TDAP,TD (3 - Td or Tdap) [facility] Start: 07-27-2025 DIABETES SCREEN DIABETES SCREEN [facility] Start: 02-21-2025 Colonoscopy COLONOSCOPY [facility] Start: 02-21-2025 COLORECTAL CANCER SCREENING COLORECTAL CANCER SCREENING [facility] Start: 01-23-2025 DIABETES SCREEN DIABETES SCREEN [facility] Start: 07-30-2024 ANNUAL PCP TEAM CHRONIC DISEASE VISIT ANNUAL PCP TEAM CHRONIC DISEASE VISIT [facility] Start: 07-30-2024 BP CONTROLLED (<130/80) BP CONTROLLED (<130/80) [facility] Start: 01-19-2024 ANNUAL PCP TEAM CHRONIC DISEASE VISIT ANNUAL PCP TEAM CHRONIC DISEASE VISIT [facility] Start: 01-19-2024 BP CONTROLLED (<130/80) BP CONTROLLED (<130/80) [facility] Start: 07-30-2023 Adult depression screening assessment DEPRESSION SCREENING [facility] Start: 07-30-2023 ANNUAL PCP TEAM CHRONIC DISEASE VISIT ANNUAL PCP TEAM CHRONIC DISEASE VISIT [facility] Start: 07-30-2023 BP CONTROLLED (<130/80) BP CONTROLLED (<130/80) [facility] Start: 07-30-2023 Influenza vaccination INFLUENZA (#1) [facility] Start: 07-19-2023 End: 09-18-2023 CBC panel - Blood by Automated count CBC Lab Routine Essential hypertension Expected: 07/19/2023, Expires: 09/18/2023 [facility] Work Phone: Immunizations Immunization Date Immunization Notes Care Provider Fa cilikaylin 01-19-2023 COVID-19 booster vaccine, age 12+ yr, bivalent ([employer]) Juanito Worley MD Work Phone: [facility] Work Phone: 07-30-2022 influenza, high-dose , quadrivalent vaccine (FLUZONE HIGH DOSE QUADRIVALENT) Juanito Worley MD Work Phone: [facility] Work Phone: 09-11-2021 influenza, seasonal, injectable, preservative free Adán Curran MD Work Phone: [facility] Work Phone: 11-01-2020 influenza, high dose seasonal, preservative-free Adán Curran MD Work Phone: [facility] Work Phone: 01-11-2020 influenza, high dose seasonal, preservative-free Adán Curran MD Work Phone: [facility] 01-09-2019 influenza, high dose seasonal, preservative-free Adán Curran MD Work Phone: [facility] Work Phone: 01-03-2018 influenza, high dose seasonal, preservative-free Adán Curran MD Work Phone: [facility] 12-28-2016 influenza, high dose seasonal, preservative-free Adán Curran MD Work Phone: [facility] 06-25-2016 tetanus and diphther ia toxoids, adsorbed, preservative free, for adult use (5 Lf of tetanus toxoid and 2 Lf of diphtheria toxoid) Adán Curran MD Work Phone: [facility] 01-27-2016 pneumococcal conjuga te vaccine, 13 valent Adán Curran MD Work Phone: [facility] Work Phone: 12-26-2015 influenza, high dose seasonal, preservative-free Adán Curran MD Work Phone: [facility] 03-02-2015 zoster vaccine, live Adán Curran MD Work Phone: [facility] Work Phone: 10-23-2014 influenza, high dose seasonal, preservative-free Adán Curran MD Work Phone: [facility] 10-23-2014 zoster vaccine, live Adán Curran MD Work Phone: [facility] Work Phone: 10-24-2012 influenza virus vacc ine, unspecified formulation Adán Curran MD Work Phone: [facility] Work Phone: 09-10-2011 influenza virus vacc ine, unspecified formulation Adán Curran MD Work Phone: [facility] Work Phone: 09-10-2011 pneumococcal polysaccharide vaccine, 23 valent Adán Curran MD Work Phone: [facility] Work Phone: 10-13-2008 influenza virus vacc ine, unspecified formulation Adán Curran MD Work Phone: [facility] Work Phone: 07-08-2006 tetanus toxoid, redu casandra diphtheria toxoid, and acellular pertussis vaccine, adsorbed Adán Curran MD Work Phone: [facility] Work Phone: Payers Date Payer Category Payer Medicare AETNA MEDICARE A ETNA MEDICARE PPO [id number] 2021-Present [phone] [address] [place] [address] PPO [id number] 2021 Medicare AETNA MEDICARE A ETNA MEDICARE PPO [id number] 2021-Present [phone] [address] [place] [address] PPO [id number] 2021 Medicare [id number] Social History Date Type Detail Facility Start: 07-30-2022 [facility] Work Phone: End: 11-29-1982 History of tobacco use Current smoker [facility] Work Phone: End: 11-29-1982 History of tobacco use Pipe Smoker [facility] Work Phone: Start: 03-19-2022 End: 07-30-2023 Alcohol intake Current non-drinker of alcohol (finding) [facility] Start: 05-09-2020 End: 01-16-2021 History SDOH Alcohol Frequency 1 [facility] Start: 05-09-2020 History SDOH Alcohol Std Drinks 98 [facility] Start: 05-09-2020 History SDOH Social Connections Phone 3 [facility] Start: 05-09-2020 End: 01-16-2021 History SDOH Social Connections Get Together 2 [facility] Start: 05-09-2020 History SDOH Physica l Activity DPW 7 [facility] Start: 05-09-2020 History SDOH Physica l Activity MPS 15 [facility] Start: 05-09-2020 History SDOH Financial 5 [facility] Start: 05-09-2020 Education 20 [facility] Start: 1945 Sex Assigned At Not on file [facility] Start: 03-09-2022 End: 07-30-2022 Exposure to SARS-CoV-2 (event) Not sure [facility] Start: 07-30-2022 Tobacco use and exposure Karolina blackburn smokeless tobacco user [facility] Work Phone: Start: 05-09-2020 End: 12-25-2022 History of Social function [facility] Start: 05-09-2020 End: 12-25-2022 Social connection and isolation panel [facility] Do you belong to any clubs or organizations such as mu-ism groups, unions, fraternal or athletic groups, or school groups? Yes [facility] Are you now , , , , never or living with a partner? [facility] How often to you hav e a drink containing alcohol? Never [facility] How many standard dr inks containing alcohol do you have on a typical day? Patient refused [facility] Do you feel stress - tense, restless, nervous, or anxious, or unable to sleep at night because your mind is troubled all the time - these days [OSQ] Only a little [facility] (I/We) worried wheth er (my/our) food would run out before (I/we) got money to buy more. Never true [facility] Work Phone: In the past 12 month s, was there a time when you were not able to pay the mortgage or rent on time? No [facility] Medical Equipment Procedure Code Equipment Code Equipment Origin al Text Equipment Identifier Dates Mesh [employer] Polypropylene Surgical Nonabsorbable Plug Knitted - [id number] Start: 04-02-2022 Clinical Notes 06-30-2017 to 07-30-2023 Patient Juanito Hyde MD - 07/30/2023 8:37 AM Juanito Knight MD - 07/30/2023 8:26 AM EDTPatient InstructionsVicgudelia Worley MD - 01/19/2023 9:04 AM EST Note Date & Type Note Facility 07-30-2023 Note HNO ID: [id number] Author: Juanito Worley MD Service: ? Author Type: Physician Type: Progress Notes Filed: 07/30/2023 9:13 AM Note Text: This note was created using Yeahkar[employer]. Subjective Aly Nina is a 78 year [...] spouse and call back. Juanito Worley MD [facility] 07-30-2023 Note HNO ID: [id number] Author: Juanito Worley MD Service: ? Author Type: Physician Type: Progress Notes Filed: 07/30/2023 9:13 AM Note Text: Aly Nina is a 78 year old male here for a Medicare wellness visit. Health Risk Assessment In general, health is: Very good Concerns with balance:Not at all Concerns with teeth or dentures:Not at all Concerns with sexual function:Not at all [place] anxious, stressed, angry, irritable, lonely, isolated, or [...] Dr. Duncan Carlos, urology. Dr. Sandra, ophthalmology. [facility]. Medical/Family history review Reviewed and updated [...] and Shingrix at pharmacy - Depression screening [facility] 07-30-2023 Instructions Juanito Worley MD - 07/30/2023 8:41 AM EDT Get vaccinated for: Shingles. Flu. Covid. Have you ever planned for future healthcare decisions with a power of assistant district attorney, living will, or advance directives? Yes. Have you shared those records with your doctor? No and No. Please bring a copy to your next appointment or email to Fasting blood work soon. documented in this encounter [facility] 07-30-2023 History of Presen t illness Narrative This note was created using [employer]. Subjective Aly Nina is a 78 year [...] all Concerns with sexual function:Not at all [place] anxious, stressed, angry, irritable, lonely, isolated, or [...] Dr. Duncan Carlos, urology. Dr. Sandra, ophthalmology. [facility]. Medical/Family history review Reviewed and updated [...] - Depression screening documented in this encounter [facility] 01-19-2023 Note HNO ID: [id number] Author: RT Chris(R) Service: ? Author Type: Loom Mechanic Type: Progress Notes Filed: 01/19/2023 10:22 AM [...] RT Chris(R) January 19, 2023 10:[address] [facility] 01-19-2023 Note HNO ID: [id number] Author: Juanito Worley MD Service: ? Author Type: Physician Type: Progress Notes Filed: 01/19/2023 10:09 AM Note Text: This note was created using [employer]. Subjective Aly Nina is a 77 year [...] VACCINE, AGE 12+ YR Juanito Worley MD [facility] 01-19-2023 Instructions Juanito Worley MD - 01/19/2023 9:36 AM EST Fasting blood work in June. documented in this encounter [facility] 01-19-2023 History of Presen t illness Narrative This note was created using [employer]. Subjective Aly Nina is a 77 year [...] vaccine - ICD9: V04.89, ICD10: Z23 - [employer] COVID-19 BIVALENT BOOSTER VACCINE, AGE 12+ YR Juanito Worley MD documented in this encounter [facility] 01-11-2023 Miscellaneous Notes Formattin g of this note might be different from the original. Spoke with patient. Given message from provider's office. Patient verbalizes understanding. Mary Jane Salazar RN Patient is not due for routine labs Barb Hernandez APRN.PARTS FACILITATOR Patient came to get lab work done before appointment on 01/19/2023. [address] labs if needed and call patient. documented in this encounter [facility] 07-30-2022 Instructions Juanito Worley MD - [...] review all the medicines you take, even hrky-tzo-clouzwj medicines. As you get older, the way [...] certain medical conditions. documented in this encounter [facility] 07-30-2022 History of Presen t illness Narrative Aly Nina is a 77 year old male here for a Medicare Subsequent Annual Wellness Visit Health Risk Assessment In general, health is: Good Concerns with tiredness, difficulties with sexual function, balance, teeth/dentures: Several days [place] anxious, stressed, angry, irritable, lonely, isolated, or [...] Worley MD This note was created using [employer]. Subjective Aly Nina is a 77 year old male. He felt well in general. He was having gait issues and working with [facility] for physical therapy. We reviewed his [...] Juanito Worley MD documented in this encounter [facility] 04-09-2022 History of Presen t illness Narrative FOLLOW UP VISIT - HERNIA NAME: Aly Norman Vesta [facility] NO.: [id number] DATE OF SERVICE: 04/09/2022 : 1945 REFERRING [...] Aly was referred for evaluation and treatment. I [...] Adán Curran MD documented in this encounter [facility] 03-19-2022 History of Presen t illness [...] BCC (basal cell carcinoma of skin) 10/24/2012 [facility]erm[facility]. Bladder cancer (HCC) BPH with urinary [...] hernia repair with mesh - recurrent - [id number] Anticipated Anesthetic: MAC with local Patient weight: Blood pressure 146/74, pulse 82, temperature 36.7 C (98.1 F), height 177.8 cm (5' 10 ), weight 79.8 kg (176 lb), SpO2 97 %. BMI: Body mass index is 25.25 kg/m . Planned antibiotic: Ancef 2gm IVPB stone hand to OR SCDs needed - Yes Return to Clinic: The patient is instructed to follow-up with me 1 week post operatively. Adán Curran MD documented in this encounter [facility] 03-19-2022 Instructions Adán Curran MD - 03/19/2022 7:38 AM EDT The following instructions are important for you related to your office visit today with the [facility]. INSTRUCTIONS FOR YOUR SURGICAL PROCEDURE [...] you should contact our office immediately @ [phone] and ask to be transferred to the General Surgery department. documented in this encounter [facility] 03-19-2022 Nurse Note REVIEW OF SYSTEMS: [...] 02/11/2015 Alyssa Tena documented in this encounter [facility] documented as of this encounter (statuses as of 07/30/2022) [facility] History of Past illness Narrative* Problem [...] of this encounter (statuses as of 01/11/2023) [facility] History of Past illness Narrative* Problem [...] of this encounter (statuses as of 01/19/2023) [facility] History of Past illness Narrative* Problem [...] of this encounter (statuses as of 07/30/2023) [facility] History of Past illness Narrative* Problem [...] of this encounter (statuses as of 03/19/2022) [facility] History of Past illness Narrative* Problem [...] of this encounter (statuses as of 04/09/2022) [facility] Diagnosis Left inguinal hernia Inguinal hernia without mention of obstruction or gangrene, unilateral or unspecified, (not specified as recurrent) [facility] Diagnosis Left inguinal hernia- Primary Inguinal hernia without mention of obstruction or gangrene, unilateral or unspecified, (not specified as recurrent) [facility] Diagnosis Medicare annual wellness visit, subsequent- Primary Routine general medical examination at a health care facility Essential hypertension Unspecified essential hypertension Impaired fasting blood sugar Impaired fasting glucose Hyperlipidemia, unspecified hyperlipidemia type Need for influenza vaccination Need for prophylactic vaccination and inoculation against influenza [facility] Diagnosis Pain of right thigh- Primary Pain in limb Hyperlipidemia, unspecified hyperlipidemia type Essential hypertension Unspecified essential hypertension Spinal stenosis of lumbar region without neurogenic claudication Spinal stenosis, lumbar region, without neurogenic claudication Need for COVID-19 vaccine [facility] Diagnosis Medicare annual wellness visit, subsequent- Primary Routine general medical examination at a health care facility Essential hypertension Unspecified essential hypertension Hyperlipidemia, unspecified hyperlipidemia type Relationship problems Relationship problems specific to childhood and adolescence documented in this encounter [facility] Summary Purpose Family History No Family History Records FoundNo Family History Records FoundNo Family History Records Found Advance Directives No Advanced Directives Records FoundDocuments on File Type Date Recorded 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 Advance Directive(s) 04/02/2022 12:03 PM Reason for Referral Specialty Diagnoses / Procedures Referred By Joaquin hsieh Referred To Contact Pain Management Diagnoses Spinal stenosis of lumbar region without neurogenic claudication Procedures CONSULT TO PAIN MGT Juanito Worley MD [address] [place] [id number] Referral ID Status Reason Start Date Expiration Date Visits Requested Visits Authorized [id number] Ref Not Required PCP Requested Referral 01/19/2023 01/19/2024 1 1 Specialty Diagnoses / Procedures Referred By Joaquin hsieh Referred To Contact XR IMAGING Diagnoses Pain of right thigh Procedures XR FEMUR GENERAL 2V AP/LAT RIGHT RADIOLOGIC EXAMINATION FEMUR MINIMUM 2 VIEWS Juanito Worley MD [address] [place] [id number] Xr Imaging Referral ID Status Reason Start Date Expiration Date V isits Requested Visits Authorized [id number] Closed Auto-Generate d Referral 01/19/2023 02/18/2024 1 1 Additional Source Comments (unrecognized sect ion and content) No Status Records FoundNo Status Records FoundNo Status Records Found INFORMATION SOURCE (unrecogn ized section and content) DATE CREATED AUTHOR AUTHOR'S ORGANIZ ATION 04/03/2022 [facility] DATE CREATED AUTHOR AUTHOR'S ORGANIZ ATION 07/31/2023 [facility] Source Comments (unrecognize d section and content) In the event this informatio n is protected by the Federal Confidentiality of Alcohol and Drug Abuse Patient Records regulations: The Federal rules restrict any use of the information to criminally investigate or prosecute any alcohol or drug abuse patient.[facility] the event this information is protected by the Federal Confidentiality of Alcohol and Drug Abuse Patient Records regulations: The Federal rules restrict any use of the information to criminally investigate or prosecute any alcohol or drug abuse patient.[facility] the event this information is protected by the Federal Confidentiality of Alcohol and Drug Abuse Patient Records regulations: The Federal rules restrict any use of the information to criminally investigate or prosecute any alcohol or drug abuse patient.[facility] the event this information is protected by the Federal Confidentiality of Alcohol and Drug Abuse Patient Records regulations: The Federal rules restrict any use of the information to criminally investigate or prosecute any alcohol or drug abuse patient.[facility] the event this information is protected by the Federal Confidentiality of Alcohol and Drug Abuse Patient Records regulations: The Federal rules restrict any use of the information to criminally investigate or prosecute any alcohol or drug abuse patient.[facility] the event this information is protected by the Federal Confidentiality of Alcohol and Drug Abuse Patient Records regulations: The Federal rules restrict any use of the information to criminally investigate or prosecute any alcohol or drug abuse patient.[facility] Reason for Visit (unrecogniz ed section and content) Specialty Diagnoses / Procedures Referred By Joaquin hsieh Referred To Contact General Surgery Diagnoses Left inguinal hernia Procedures CONSULT TO GENERAL SURGERY NEW PATIENT VISIT LEVEL 5 Juanito Worley MD [address] [place] [address] Referral ID Status Reason Start Date Expiration Date Visits Requested Visits Authorized [id number] Pending Review PCP Requested Referral 07/24/2021 07/24/2022 1 1 Reason Comments Follow [place] Reason Onset Date Comments Medicare Wellness Exam 5 month follow-up Immunizations 07/30/2022 Flu vaccination Reason Comments Orders Reason Comments F/U 6 months Reason Comments Medicare Wellness Exam Care Teams (unrecognized sec tion and content) Inspector Dials Relationship Specialty Start Date End Date Juanito Worley MD [address] [place], [place] [id number] PCP - General Internal Medicine 12/26/15 Inspector Dials Relationship Specialty Start Date End Date Juanito Worley MD [address] [place], [place] [address] PCP - General Internal Medicine 12/26/15 Inspector Dials Relationship Specialty Start Date End Date Juanito Worley MD [address] [place], [place] [id number] PCP - General Internal Medicine 12/26/15 Inspector Dials Relationship Specialty Start Date End Date Juanito Worley MD [address] [place] [address] PCP - General Internal Medicine [...] BE BASED ON THE PRIMARY CLINICAL RECORDS. [employer] [facility]. provides no warranty or guarantee of the accuracy or completeness of information in this document.
== END 2024-01-24 15:45 | disposition home or self-care (01) ==
PROVIDERS: PCP Internal Medicine; Visit Provider Emergency Medicine
DX: Z23 Encounter for immunization (principal)
CPT/HCPCS: 90675; 96372

== ENCOUNTER 2024-01-28 13:33 | Emergency (ER) | payer MEDICARE, SELFPAY ==
[2024-01-28 13:34] VITALS: BP 116/70; PULSE 74; RESP 16; TEMP 36.2; O2SAT 97
[2024-01-28] MEDS: Rabies Vaccine,Human Diploid 2.5 UNITS Vial IM (14:11)
== END 2024-01-28 15:12 | disposition home or self-care (01) ==
PROVIDERS: Emergency Provider Emergency Medicine; PCP Internal Medicine; Visit Provider Emergency Medicine
DX: Z23 Encounter for immunization (principal)
CPT/HCPCS: 90675; 96372

== ENCOUNTER 2024-02-04 20:24 | Outpatient (CLI) | payer MEDICARE, SELFPAY ==
[2024-02-04 20:25] VITALS: BP 127/80; PULSE 76; RESP 14; TEMP 36.4; O2SAT 98; BMI 26.4
[2024-02-04 20:26] VITALS: TEMP 36.4; BMI 26.4
--- OUTSIDE RECORDS SUMMARY | 2024-02-04 20:31 | XMS RPT_ITS | CCD ---
Author Name Unknown Address [address] [place] [address] Organization [facility] Care Team Providers Care 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 Name Role Phone Juanito Worley MD Primary Care Provider [phone] JUANITO WORLEY Attending Unavailable JUANITO WORLEY Primary Care Unavailable JUANITO WORLEY Primary Care Unavailable JUANITO WORLEY Attending Unavailable Medications Current Medications Medication Drug Class(es) [...] Sig (Original) amLODIPine 10 mg oral tablet (8 sources) Dihydropyridine Calcium Channel Uzma Start: 01-24-2024 take 1 tablet by mouth once daily amLODIPine (NORVASC) 10 mg tablet Indications: Essential hypertension Take 1 tablet by mouth once daily. 90 tablet 3 01/24/2024 Active Problems Active Problems Problem Classification Problem Date Documented Date Episodic/Chronic Abdominal hernia (4 sources) Left inguinal hernia ; Translations: [Unilateral inguinal hernia, without obstruction or gangrene, not specified as recurrent] Onset: 07-05-2018 Episodic Administrative/social admission (1 source) Relationship problems; Translations: [Problem related to primary support group, unspecified] 07-30-2023 Episodic Diabetes mellitus without complication (9 sources) Impaired fasting glycemia; Translations: [Impaired fasting glucose] Onset: 06-30-2017 06-30-2017 Episodic Disorders of lipid metabolism (11 sources) Hyperlipidemia; Translations: [Hyperlipidemia, unspecified] Onset: 11-07-2009 11-07-2009 Chronic Essential hypertension (11 sources) Essential hypertension; Translations: [Essential (primary) hypertension] Onset: 10-20-2017 02-16-2019 Chronic Hyperplasia of prostate (7 sources) Benign prostatic hypertrophy with outflow obstruction; Translations: [Benign prostatic hyperplasia with lower urinary tract symptoms] Onset: 11-07-2009 11-07-2009 Chronic Immunizations and screening for infectious disease (2 sources) Needs influenza immunization; Translations: [Encounter for immunization] Episodic Mood disorders (2 sources) Mood disorder; Translations: [Unspecified mood [affective] disorder] Onset: 01-28-2024 01-28-2024 Chronic Osteoarthritis (7 sources) Osteoarthritis of right hip joint; Translations: [Unilateral primary osteoarthritis, right hip] Onset: 06-30-2017 06-30-2017 Chronic Other connective tissue disease (7 sources) Cramp in lower limb; Translations: [Sleep related leg cramps] Onset: 06-30-2017 06-30-2017 Chronic Other connective tissue disease (1 source) Pain of right thigh; Translations: [Pain in right thigh] Episodic Other screening for suspected conditions (not mental disorders or infectious disease) (8 sources) Raised prostate specific antigen; Translations: [Elevated prostate specific antigen [PSA]] Onset: 12-21-2016 12-21-2016 Episodic Past or Other Problems Problem Classification Problem Date Documented Da te Episodic/Chronic Other non-epithelial cancer of skin (7 sources) Basal cell carcinoma of skin; Translations: [Basal cell carcinoma of skin, unspecified] Onset: 10-24-2012 11-24-2021 Episodic Other skin disorders (7 sources) Multiple actinic keratoses; Translations: [Actinic keratosis] Onset: 11-07-2009 12-26-2015 Episodic Spondylosis; intervertebral disc disorders; other back problems (8 sources) Spinal stenosis of lumbar region; Translations: [Spinal stenosis, lumbar region without neurogenic claudication] Onset: 01-27-2022 01-27-2022 Episodic Results Test Name Value Interpretation Reference Range Facil ity Vital Signs Date Time Vital Sign Value Performing Clinician Glenys [email or web address] 01-28-2024 09:28-0500 Diastolic blood pressure 60 mm[Hg] Juanito Worley MD Work Phone: [facility] 01-28-2024 09:28-0500 Systolic blood pressure 126 mm[Hg] Juanito Worley MD Work Phone: [facility] 01-28-2024 08:58-0500 Body weight 81.65 kg Juanito Worley MD Work Phone: [facility] 01-28-2024 08:58-0500 Heart rate 68 /min Juanito Worley MD Work Phone: [facility] 01-28-2024 08:58-0500 SaO2% (BldA) [Mass fraction] 97 % Juanito Worley MD Work Phone: [facility] 07-30-2023 08:05-0400 Body height 172.7 cm Juanito Worley MD Work Phone: [facility] 07-30-2023 08:05-0400 Body weight 81.19 kg Juanito Worley MD Work Phone: [facility] 01-19-2023 10:02-0500 Diastolic blood pressure 58 mm[Hg] Juanito Worley MD Work Phone: [facility] 01-19-2023 10:02-0500 Systolic blood pressure 126 mm[Hg] Juanito Worley MD Work Phone: [facility] 01-19-2023 08:59-0500 Body temperature 97.3 [degF] Juanito Worley MD Work Phone: [facility] 01-19-2023 08:59-0500 Body weight 83.46 kg Juanito Worley MD Work Phone: [facility] 01-19-2023 08:59-0500 Heart rate 72 /min Juanito Worley MD Work Phone: [facility] 01-19-2023 08:59-0500 Respiratory rate 12 /min Juanito Worley MD Work Phone: [facility] 07-30-2022 08:20-0400 Body height 175.3 cm Juanito Worley MD Work Phone: [facility] 07-30-2022 08:20-0400 Body temperature 97 [degF] Juanito Worley MD Work Phone: [facility] 07-30-2022 08:20-0400 Body weight 82.1 kg Juainto Worley MD Work Phone: [facility] 07-30-2022 08:20-0400 Diastolic blood pressure 68 mm[Hg] Juanito Worley MD Work Phone: [facility] 07-30-2022 08:20-0400 Heart rate 72 /min Juanito Worley MD Work Phone: [facility] 07-30-2022 08:20-0400 Respiratory rate 16 /min Juanito Worley MD Work Phone: [facility] 07-30-2022 08:20-0400 Systolic blood pressure 122 mm[Hg] Juanito Worley MD Work Phone: [facility] 04-09-2022 10:44-0400 Body height 177.8 cm Adán Curran MD Work Phone: [facility] 04-09-2022 10:44-0400 Body temperature 97.81 [degF] Adán Curran MD Work Phone: [facility] 04-09-2022 10:44-0400 Body weight 78.02 kg Adán Curran MD Work Phone: [facility] 04-09-2022 10:44-0400 Diastolic blood pressure 56 mm[Hg] Adán Curran MD Work Phone: [facility] 04-09-2022 10:44-0400 Heart rate 87 /min Adán Curran MD Work Phone: [facility] 04-09-2022 10:44-0400 SaO2% (BldA) [Mass fraction] 96 % Adán Curran MD Work Phone: [facility] 04-09-2022 10:44-0400 Systolic blood pressure 112 mm[Hg] Adán Curran MD Work Phone: [facility] 03-19-2022 07:09-0400 Body height 177.8 cm Adán Curarn MD Work Phone: [facility] 03-19-2022 07:09-0400 Body temperature 98.1 [degF] Adán Curran MD Work Phone: [facility] 03-19-2022 07:09-0400 Body weight 79.83 kg Adán Curran MD Work Phone: [facility] 03-19-2022 07:09-0400 Diastolic blood pressure 74 mm[Hg] Adán Curran MD Work Phone: [facility] 03-19-2022 07:09-0400 Heart rate 82 /min Adán Curran MD Work Phone: [facility] 03-19-2022 07:09-0400 SaO2% (BldA) [Mass fraction] 97 % Adán Curran MD Work Phone: [facility] 03-19-2022 07:09-0400 Systolic blood pressure 146 mm[Hg] Adán Curran MD Work Phone: [facility] Encounters Encounter Date Encounter Type Care Provider Facility Start: 01-28-2024 ambulatory JUANITO WORLEY Faci lity:[facility] Start: 01-28-2024 End: 01-28-2024 Patient encounter procedure Juanito Worley MD Work Phone: [facility] Procedures Date Procedure Procedure Detail Performing Clinician Start: 01-19-2023 PFIZER-[facility]ION[place]odemasters COVI D-19 BIVALENT BOOSTER VACCINE, AGE 12+ [...] Author Start: 07-22-2026 LIPID SCREEN LIPID SCREEN [facility] Start: 06-25-2026 Urine microalbumin profile [facility] Start: 07-27-2025 DIABETES SCREEN DIABETES SCREEN [facility] Start: 07-27-2025 Diabetes Screening Diabetes Screening [facility] Start: 02-21-2025 Colonoscopy COLONOSCOPY [facility] Start: 02-21-2025 COLORECTAL CANCER SCREENING COLORECTAL CANCER SCREENING [facility] Start: 01-27-2025 Annual PCP Team Chronic Disease Visit Annual PCP Team Chronic Disease Visit [facility] Start: 01-27-2025 BP Controlled (<130/80) BP Controlled (<130/80) [facility] Start: 01-23-2025 DIABETES SCREEN DIABETES SCREEN [facility] Start: 07-30-2024 ANNUAL PCP TEAM CHRONIC DISEASE VISIT ANNUAL PCP TEAM CHRONIC DISEASE VISIT [facility] Start: 07-30-2024 BP CONTROLLED (<130/80) BP CONTROLLED (<130/80) [facility] Start: 07-30-2024 End: 10-29-2024 CBC panel - Blood by Automated count CBC Lab Routine Essential hypertension Expected: 07/30/2024, Expires: 10/29/2024 [facility] Work Phone: Immunizations Immunization Date Immunization Notes Care Provider Fa [facility] 01-24-2024 rabies vaccine, for intramuscular injection Juanito Worley MD Work Phone: [facility] 01-21-2024 rabies vaccine, for intramuscular injection Juanito Worley MD Work Phone: [facility] 01-19-2023 COVID-19 booster vaccine, age 12+ yr, bivalent (Shutl) Juanito Worley MD Work Phone: [facility] Work Phone: 07-30-2022 influenza, high-dose , quadrivalent vaccine (FLUZONE HIGH DOSE QUADRIVALENT) Juanito Worley MD Work Phone: [facility] Work Phone: 07-30-2022 influenza virus vacc ine, unspecified formulation Juanito Worley MD Work Phone: [facility] 09-11-2021 influenza, seasonal, injectable, preservative free Adán Curran MD Work Phone: [facility] Work Phone: 11-01-2020 influenza, high dose seasonal, preservative-free Adán Curran MD Work Phone: [facility] Work Phone: 01-11-2020 influenza, high dose seasonal, preservative-free Adán Curran MD Work Phone: [facility] 01-09-2019 influenza, high dose seasonal, preservative-free Adán Curran MD Work Phone: [facility] Work Phone: 01-03-2018 influenza, high dose seasonal, preservative-free Adán Curran MD Work Phone: [facility] 12-28-2016 influenza, high dose seasonal, preservative-free Adán Curran MD Work Phone: [facility] 06-25-2016 tetanus and diphther ia toxoids, adsorbed, preservative free, for adult use (5 Lf of tetanus toxoid and 2 Lf of diphtheria toxoid) Adán Curran MD Work Phone: [facility] 01-27-2016 pneumococcal conjuga te vaccine, 13 valent dAán Curran MD Work Phone: [facility] Work Phone: 12-26-2015 influenza, high dose seasonal, preservative-free Adán Curran MD Work Phone: [facility] 03-02-2015 zoster vaccine, live Adán Curran MD Work Phone: [facility] Work Phone: 10-23-2014 influenza, high dose seasonal, preservative-free Adán Curran MD Work Phone: [facility] 10-23-2014 zoster vaccine, live Adán Curran MD Work Phone: [facility] Work Phone: 10-24-2012 influenza virus vacc ine, unspecified formulation Adán Curran MD Work Phone: [facility] Work Phone: 09-10-2011 influenza virus vacc ine, unspecified formulation Adán Curran MD Work Phone: [facility] Work Phone: 09-10-2011 pneumococcal polysaccharide vaccine, 23 valent Adán Curran MD Work Phone: [facility] Work Phone: 10-13-2008 influenza virus vacc ine, unspecified formulation Adán Curran MD Work Phone: [facility] Work Phone: 07-08-2006 tetanus toxoid, redu casandra diphtheria toxoid, and acellular pertussis vaccine, adsorbed Adán Curran MD Work Phone: [facility] Work Phone: Payers Date Payer Category Payer Medicare A[employer]NA MEDICARE A ETNA MEDICARE PPO [id number] 2021-Present [phone] [address] [place] [address] PPO [id number] 2021 Medicare AETNA MEDICARE A ETNA MEDICARE PPO [id number] 2021-Present [phone] [address] [place] [address] O [id number] 2021 Medicare [id number] Social History Date Type Detail Facility Start: 07-30-2022 [facility] Work Phone: End: 11-29-1982 History of tobacco use Current smoker [facility] Work Phone: End: 11-29-1982 History of tobacco use Pipe Smoker [facility] Work Phone: Start: 03-19-2022 End: 01-28-2024 Alcohol intake Current non-drinker of alcohol (finding) [facility] Start: 05-09-2020 End: 01-16-2021 History SDOH Alcohol Frequency 1 [facility] Start: 05-09-2020 History SDOH Alcohol Std Drinks 98 [facility] Start: 05-09-2020 History SDOH Social Connections Phone 3 [facility] Start: 05-09-2020 End: 01-16-2021 History SDOH Social Connections Get Together 2 [facility] Start: 05-09-2020 History SDOH Physica l Activity DPW 7 [facility] Start: 05-09-2020 History SDOH Physica l Activity MPS 15 [facility] Start: 05-09-2020 History SDOH Financial 5 [facility] Start: 05-09-2020 Education 20 [facility] Start: 1945 Sex Assigned At Not on file [facility] Start: 03-09-2022 End: 07-30-2022 Exposure to SARS-CoV-2 (event) Not sure [facility] Start: 07-30-2022 Tobacco use and exposure Karolina blackburn smokeless tobacco user [facility] Work Phone: Start: 05-09-2020 End: 01-28-2024 History of Social function [facility] Start: 05-09-2020 End: 01-28-2024 Social connection and isolation panel [facility] Do you belong to any clubs or organizations such as yarsani groups, unions, fraternal or athletic groups, or school groups? Yes [facility] Are you now , , , , never or living with a partner? [facility] How often to you hav e a drink containing alcohol? Never [facility] How many standard dr inks containing alcohol do you have on a typical day? Patient refused [facility] Do you feel stress - tense, restless, nervous, or anxious, or unable to sleep at night because your mind is troubled all the time - these days [OSQ] Only a little [facility] (I/We) worried jerica er (my/our) food would run out before (I/we) got money to buy more. Never true [facility] Work Phone: In the past 12 month s, was there a time when you were not able to pay the mortgage or rent on time? No [facility] Medical Equipment Procedure Code Equipment Code Equipment Origin al Text Equipment Identifier Dates Mesh [employer] Polypropylene Surgical Nonabsorbable Plug Knitted - [id number] Start: 04-02-2022 Clinical Notes 06-30-2017 to 01-28-2024 Juanito Worley MD - 01/28/2024 9:23 AM ESTPatient InstructionsJuanito Wolrey MD - 07/30/2023 8:37 AM EDTJuanito Worley MD - 07/30/2023 8:26 AM EDTPatient Instructions Note Date & Type Note Facility 01-28-2024 Note HNO ID: [id number] Author: JUANITO WORLEY MD Service: ? Author Type: Physician Type: Progress Notes Filed: 01/28/2024 13:06 Note Text: This note was created using MarkMonitorter. Subjective Patient presents with: F/U 6 months Aly Nina is a 78 year old male. He picked up a stray cat and got bit on the left hand. He was now finishing rabies vaccination series. His hypertension and lipids were historically controlled. His had been concerned about his moods. He cried when any animal was euthanized. He was also described as vyas and irritable. Review of Systems Constitutional: Negative for fatigue. Respiratory: Negative for shortness of breath. Cardiovascular: Negative for chest pain. Gastrointestinal: Negative for abdominal pain. Musculoskeletal: Negative. Neurological: Negative for headaches. Psychiatric/Behavioral: Positive for dysphoric mood. Negative for self-injury, sleep disturbance and suicidal ideas. ACTIVE PROBLEM LIST Hyperlipidemia Actinic Keratoses Bph With Urinary Obstruction Bcc (Basal Cell Carcinoma of Skin) Elevated Prostate Specific Antigen (Psa) Impaired Fasting Blood Sugar Nocturnal Leg Cramps Primary Osteoarthritis of Right Hip Essential Hypertension Spinal Stenosis of Lumbar Region Without Neurogenic Claudication Mood Disorder (Hcc) Social History Tobacco Use Smoking status: Former Types: Pipe Smokeless tobacco: Former Vaping Use Vaping Use: Never used Substance Use Topics Alcohol use: No Drug use: No Current Outpatient Medications Medication Sig atorvastatin (LIPITOR) 40 mg tablet Take 1 tablet by mouth daily at bedtime. For cholesterol. amLODIPine (NORVASC) 10 mg tablet Take 1 tablet by mouth once daily. sertraline (ZOLOFT) 25 mg tablet Take 1 tablet by mouth once daily. No current facility-administered medications for this visit. Objective BP 126/60 (BP Site: Left Arm, BP Position: Sitting) Pulse 68 Wt 81.6 kg (180 lb) SpO2 97% BMI 27.37 kg/m? Physical Exam Constitutional: Appearance: Normal appearance. Cardiovascular: Rate and Rhythm: Normal rate and regular rhythm. Heart sounds: No murmur heard. No gallop. Pulmonary: Breath sounds: Normal breath sounds. Musculoskeletal: General: No tenderness or signs of injury. Right lower leg: No edema. Left lower leg: No edema. Neurological: Mental Status: He is alert. Psychiatric: Mood and Affect: Mood normal. Behavior: Behavior normal. Depression Screening PHQ-2 Score MERARY-2 Total Score 01/28/2024 1 - Depression screening tool completed and reviewed. Based on score and interview, patient is not at risk for depression. Screening tool discussed with patient, and I recommended no further intervention at this time and starting medication. CP PHQ9 01/28/2024 Little interest or pleasure 0 - Not at all Feeling down, depressed, hopeless 1 - Several days Trouble falling or staying asleep, sleeping too much 0 - Not at all Feeling tired, having little energy 1 - Several days Poor appetite or overeating 0 - Not at all Feeling bad about yourself, failure or you have let yourself/family down 0 - Not at all Trouble concentrating on things 0 - Not at all Moving or speaking so slowly, or fidgety or restless 0 - Not at all Thoughts that you would be better off , or of hurting yourself in some way 0 - Not at all How difficult have these problems made things Somewhat difficult Interpretation of Total Score 1-4 Minimal depression MERARY-7 ANXIETY SCALE 01/28/2024 FEELING NERVOUS,ANXIOUS,OR ON EDGE 0 Not at all sure NOT BEING ABLE TO STOP OR CONTROL WORRYING 0 Not at all sure WORRYING TOO MUCH ABOUT DIFFERENT THINGS 0 Not at all sure TROUBLE RELAXING 1 Several days BEING SO RESTLESS THAT IT'S HARD TO SIT STILL 0 Not at all sure BEING EASILY ANNOYED OR IRRITABLE 1 Several days FEELING AFRAID IF SOMETHING AWFUL MIGHT HAPPEN 0 Not at all sure GAD7 SCORE 2 IF YOU CHECKED OFF ANY PROBLEMS Not difficult at all Assessment and Plan 1. Essential hypertension - ICD9: 401.9, ICD10: I10 (primary diagnosis) - Controlled - CBC 2. Impaired fasting blood sugar - ICD9: 790.21, ICD10: R73.01 Monitor. Diet. - COMP METABOLIC PANEL 3. Elevated prostate specific antigen (PSA) - ICD9: 790.93, ICD10: R97.20 Monitor. - PSA/PROSTSPECAG DIAG 4. Hyperlipidemia, unspecified hyperlipidemia type - ICD9: 272.4, ICD10: E78.5 - Control undetermined, due for labs - Continue current medications - Counseled on healthy diet and regular exercise - LIPID PANEL BASIC 5. Mood disorder (HCC) - ICD9: 296.90, ICD10: F39 New concern. Shared medical decision making was done. Discussed medication dosage, usage, goals of therapy, and side effects. Call for refill or dose adjustment if desired. - SERTRALINE 25 MG TABLET Juanito Worley MD [facility] 01-28-2024 History of Presen t illness Narrative This note was created using Nyce Technologyriter. Subjective Patient presents with: F/U 6 months Aly Nina is a 78 year old male. He picked up a stray cat and got bit on the left hand. He was now finishing rabies vaccination series. His hypertension and lipids were historically controlled. His had been concerned about his moods. He cried when any animal was euthanized. He was also described as vyas and irritable. Review of Systems Constitutional: Negative for fatigue. Respiratory: Negative for shortness of breath. Cardiovascular: Negative for chest pain. Gastrointestinal: Negative for abdominal pain. Musculoskeletal: Negative. Neurological: Negative for headaches. Psychiatric/Behavioral: Positive for dysphoric mood. Negative for self-injury, sleep disturbance and suicidal ideas. ACTIVE PROBLEM LIST Hyperlipidemia Actinic Keratoses Bph With Urinary Obstruction Bcc (Basal Cell Carcinoma of Skin) Elevated Prostate Specific Antigen (Psa) Impaired Fasting Blood Sugar Nocturnal Leg Cramps Primary Osteoarthritis of Right Hip Essential Hypertension Spinal Stenosis of Lumbar Region Without Neurogenic Claudication Mood Disorder (Hcc) Social History Tobacco Use Smoking status: Former Types: Pipe Smokeless tobacco: Former Vaping Use Vaping Use: Never used Substance Use Topics Alcohol use: No Drug use: No Current Outpatient Medications Medication Sig atorvastatin (LIPITOR) 40 mg tablet Take 1 tablet by mouth daily at bedtime. For cholesterol. amLODIPine (NORVASC) 10 mg tablet Take 1 tablet by mouth once daily. sertraline (ZOLOFT) 25 mg tablet Take 1 tablet by mouth once daily. No current facility-administered medications for this visit. Objective BP 126/60 (BP Site: Left Arm, BP Position: Sitting) Pulse 68 Wt 81.6 kg (180 lb) SpO2 97% BMI 27.37 kg/m Physical Exam Constitutional: Appearance: Normal appearance. Cardiovascular: Rate and Rhythm: Normal rate and regular rhythm. Heart sounds: No murmur heard. No gallop. Pulmonary: Breath sounds: Normal breath sounds. Musculoskeletal: General: No tenderness or signs of injury. Right lower leg: No edema. Left lower leg: No edema. Neurological: Mental Status: He is alert. Psychiatric: Mood and Affect: Mood normal. Behavior: Behavior normal. Depression Screening PHQ-2 Score MERARY-2 Total Score 01/28/2024 1 - Depression screening tool completed and reviewed. Based on score and interview, patient is not at risk for depression. Screening tool discussed with patient, and I recommended no further intervention at this time and starting medication. CP PHQ9 01/28/2024 Little interest or pleasure 0 - Not at all Feeling down, depressed, hopeless 1 - Several days Trouble falling or staying asleep, sleeping too much 0 - Not at all Feeling tired, having little energy 1 - Several days Poor appetite or overeating 0 - Not at all Feeling bad about yourself, failure or you have let yourself/family down 0 - Not at all Trouble concentrating on things 0 - Not at all Moving or speaking so slowly, or fidgety or restless 0 - Not at all Thoughts that you would be better off , or of hurting yourself in some way 0 - Not at all How difficult have these problems made things Somewhat difficult Interpretation of Total Score 1-4 Minimal depression MERARY-7 ANXIETY SCALE 01/28/2024 FEELING NERVOUS,ANXIOUS,OR ON EDGE 0 Not at all sure NOT BEING ABLE TO STOP OR CONTROL WORRYING 0 Not at all sure WORRYING TOO MUCH ABOUT DIFFERENT THINGS 0 Not at all sure TROUBLE RELAXING 1 Several days BEING SO RESTLESS THAT IT'S HARD TO SIT STILL 0 Not at all sure BEING EASILY ANNOYED OR IRRITABLE 1 Several days FEELING AFRAID IF SOMETHING AWFUL MIGHT HAPPEN 0 Not at all sure GAD7 SCORE 2 IF YOU CHECKED OFF ANY PROBLEMS Not difficult at all Assessment and Plan 1. Essential hypertension - ICD9: 401.9, ICD10: I10 (primary diagnosis) - Controlled - CBC 2. Impaired fasting blood sugar - ICD9: 790.21, ICD10: R73.01 Monitor. Diet. - COMP METABOLIC PANEL 3. Elevated prostate specific antigen (PSA) - ICD9: 790.93, ICD10: R97.20 Monitor. - PSA/PROSTSPECAG DIAG 4. Hyperlipidemia, unspecified hyperlipidemia type - ICD9: 272.4, ICD10: E78.5 - Control undetermined, due for labs - Continue current medications - Counseled on healthy diet and regular exercise - LIPID PANEL BASIC 5. Mood disorder (HCC) - ICD9: 296.90, ICD10: F39 New concern. Shared medical decision making was done. Discussed medication dosage, usage, goals of therapy, and side effects. Call for refill or dose adjustment if desired. - SERTRALINE 25 MG TABLET Juanito Worley MD documented in this encounter [facility] 07-30-2023 Note HNO ID: [id number] Author: Juanito Worley MD Service: ? Author Type: Physician Type: Progress Notes Filed: 07/30/2023 9:13 AM Note Text: This note was created using [employer]. Subjective Aly Nina is a 78 year [...] spouse and call back. Juanito Worley MD [facility] 07-30-2023 Note HNO ID: [id number] Author: Juanito Worley MD Service: ? Author Type: Physician Type: Progress Notes Filed: 07/30/2023 9:13 AM Note Text: Aly Nina is a 78 year old male here for a Medicare wellness visit. Health Risk Assessment In general, health is: Very good Concerns with balance:Not at all Concerns with teeth or dentures:Not at all Concerns with sexual function:Not at all [place] anxious, stressed, angry, irritable, lonely, isolated, or [...] Carlos, urology. Dr. Sandra, ophthalmology. [facility]. Medical/Family history review Reviewed and [...] and Shingrix at pharmacy - Depression screening [facility] 07-30-2023 Instructions Juanito Worley MD - 07/30/2023 8:41 AM EDT Get vaccinated for: Shingles. Flu. Covid. Have you ever planned for future healthcare decisions with a power of united [place] attorney, living will, or advance directives? Yes. Have you shared those records with your doctor? No and No. Please bring a copy to your next appointment or email to Fasting blood work soon. documented in this encounter [facility] 07-30-2023 History of Presen t illness Narrative This note was created using MarkMonitor[employer]. Subjective Aly Nina is a 78 year [...] all Concerns with sexual function:Not at all [place] anxious, stressed, angry, irritable, lonely, isolated, or [...] Carlos, urology. Dr. Sandra, ophthalmology. [facility]. Medical/Family history review Reviewed and [...] - Depression screening documented in this encounter [facility] 01-19-2023 Instructions Juanito Worley MD - 01/19/2023 9:36 AM EST Fasting blood work in June. documented in this encounter [facility] 01-19-2023 History of Presen t illness Narrative This note was created using [employer]. Subjective Aly Nina is a 77 year [...] Juanito Worley MD documented in this encounter [facility] 01-11-2023 Miscellaneous Notes Formattin g of this note might be different from the original. Spoke with patient. Given message from provider's office. Patient verbalizes understanding. Mary Jane Salazar RN Patient is not due for routine labs Barb Hernandez APRN.TALAT Patient came to get lab work done before appointment on 01/19/2023. Please [address] labs if needed and call patient. documented in this encounter [facility] 07-30-2022 Instructions Juanito Worley MD - [...] review all the medicines you take, even [id number] medicines. As you get older, the way [...] certain medical conditions. documented in this encounter [facility] 07-30-2022 History of Presen t illness Narrative Aly Nina is a 77 year old male here for a Medicare Subsequent Annual Wellness Visit Health Risk Assessment In general, health is: Good Concerns with tiredness, difficulties with sexual function, balance, teeth/dentures: Several days [place] anxious, stressed, angry, irritable, lonely, isolated, or [...] Worley MD This note was created using [employer]. Subjective Aly Nina is a 77 year old male. He felt well in general. He was having gait issues and working with [facility] for physical therapy. We reviewed his [...] Juanito Worley MD documented in this encounter [facility] 04-09-2022 History of Presen t illness Narrative FOLLOW UP VISIT - HERNIA NAME: Aly Norman [facility] NO.: [id number] DATE OF SERVICE: 04/09/2022 : 1945 REFERRING [...] Adán Curran MD documented in this encounter [facility] 03-19-2022 History of Presen t illness [...] at that time. Had seen the patient 2017 for follow-up. I incorrectly had this listed [...] cell carcinoma of skin) 10/24/2012 [facility]. Bladder cancer (HCC) BPH with [...] entered by the nurse and reviewed by me Nursing Notes: Alyssa Tena 03/19/2022 7:15 AM [...] hernia repair with mesh - recurrent - [id number] Anticipated Anesthetic: MAC with local Patient weight: Blood pressure 146/74, pulse 82, temperature 36.7 C (98.1 F), height 177.8 cm (5' 10 ), weight 79.8 kg (176 lb), SpO2 97 %. BMI: Body mass index is 25.25 kg/m . 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 Adán Curran MD documented in this encounter [facility] 03-19-2022 Instructions Adán Curran MD - 03/19/2022 7:38 AM EDT The following instructions are important for you related to your office visit today with the [facility] General Surgeons. INSTRUCTIONS FOR YOUR SURGICAL PROCEDURE [...] you should contact our office immediately @ [phone] and ask to be transferred to the General Surgery department. documented in this encounter [facility] 03-19-2022 Nurse Note REVIEW OF SYSTEMS: [...] Mammogram screening? N/A Last Colonoscopy: 02/11/2015 Alyssa eTna documented in this encounter [facility] documented as of this encounter (statuses as of 07/30/2022) [facility] History of Past illness Narrative* Problem [...] of this encounter (statuses as of 01/11/2023) [facility] History of Past illness Narrative* Problem [...] of this encounter (statuses as of 01/19/2023) [facility] History of Past illness Narrative* Problem [...] of this encounter (statuses as of 07/30/2023) [facility] History of Past illness Narrative* Problem [...] as of this encounter (statuses as of 01/28/2024) [facility] History of Past illness Narrative* Problem [...] of this encounter (statuses as of 03/19/2022) [facility] History of Past illness Narrative* Problem [...] of this encounter (statuses as of 04/09/2022) [facility] note* Diagnosis Left inguinal hernia Inguinal hernia without mention of obstruction or gangrene, unilateral or unspecified, (not specified as recurrent) documented in this encounter [facility] note* Diagnosis Left inguinal hernia- Primary Inguinal hernia without mention of obstruction or gangrene, unilateral or unspecified, (not specified as recurrent) documented in this encounter [facility] note* Diagnosis Medicare annual wellness visit, subsequent- Primary Routine general medical examination at a health care facility Essential hypertension Unspecified essential hypertension Impaired fasting blood sugar Impaired fasting glucose Hyperlipidemia, unspecified hyperlipidemia type Need for influenza vaccination Need for prophylactic vaccination and inoculation against influenza documented in this encounter [facility] note* Diagnosis Pain of right thigh- Primary Pain in limb Hyperlipidemia, unspecified hyperlipidemia type Essential hypertension Unspecified essential hypertension Spinal stenosis of lumbar region without neurogenic claudication Spinal stenosis, lumbar region, without neurogenic claudication Need for COVID-19 vaccine documented in this encounter [facility] note* Diagnosis Medicare annual wellness visit, subsequent- Primary Routine general medical examination at a [facility] care facility Essential hypertension Unspecified essential hypertension Hyperlipidemia, unspecified hyperlipidemia type Relationship problems Relationship problems specific to childhood and adolescence documented in this encounter [facility] note* Diagnosis Essential hypertension- Primary Unspecified essential hypertension Impaired fasting blood sugar Impaired fasting glucose Elevated prostate specific antigen (PSA) Hyperlipidemia, unspecified hyperlipidemia type Mood disorder (HCC) Unspecified episodic mood disorder documented in this encounter [facility] Summary Purpose Family History No Family History Records FoundNo Family History Records FoundNo Family History Records Found Advance Directives No Advanced Directives Records FoundDocuments on File Type Date Recorded Patient Researcher Expl anation Advance Directive(s) 04/02/2022 12:03 PM Reason for Referral Specialty Diagnoses / Procedures Referred By Joaquin hsieh Referred To Contact Pain Management Diagnoses Spinal stenosis of lumbar region without neurogenic claudication Procedures CONSULT TO PAIN MGT Juanito Worley MD [address] [place] [address] Referral ID Status Reason Start Date Expiration Date Visits Requested Visits Authorized [id number] Ref Not Required PCP Requested Referral 01/19/2023 01/19/2024 1 1 Specialty Diagnoses / Procedures Referred By Joaquin hsieh Referred To Contact XR IMAGING Diagnoses Pain of right thigh Procedures XR FEMUR GENERAL 2V AP/LAT RIGHT RADIOLOGIC EXAMINATION FEMUR MINIMUM 2 VIEWS Juanito Worley MD [address] [place] [address] Xr Imaging Referral ID Status Reason Start Date Expiration Date V isits Requested Visits Authorized [id number] Closed Auto-Generate d Referral 01/19/2023 02/18/2024 1 1 Additional Source Comments (unrecognized sect ion and content) No Status Records FoundNo Status Records FoundNo Status Records Found INFORMATION SOURCE (unrecogn ized section and content) DATE CREATED AUTHOR AUTHOR'S ORGANIZ ATION 04/03/2022 [facility] DATE CREATED AUTHOR AUTHOR'S ORGANIZ ATION 01/30/2024 [facility] Source Comments (unrecognize d section and content) In the event this informatio n is protected by the Federal Confidentiality of Alcohol and Drug Abuse Patient Records regulations: The Federal rules restrict any use of the information to criminally investigate or prosecute any alcohol or drug abuse patient.[facility] event this information is protected by the Federal Confidentiality of Alcohol and Drug Abuse Patient Records regulations: The Federal rules restrict any use of the information to criminally investigate or prosecute any alcohol or drug abuse patient.[facility] the event this information is protected by the Federal Confidentiality of Alcohol and Drug Abuse Patient Records regulations: The Federal rules restrict any use of the information to criminally investigate or prosecute any alcohol or drug abuse patient.[facility] the event this information is protected by the Federal Confidentiality of Alcohol and Drug Abuse Patient Records regulations: The Federal rules restrict any use of the information to criminally investigate or prosecute any alcohol or drug abuse patient.[facility] the event this information is protected by the Federal Confidentiality of Alcohol and Drug Abuse Patient Records regulations: The Federal rules restrict any use of the information to criminally investigate or prosecute any alcohol or drug abuse patient.[facility] the event this information is protected by the Federal Confidentiality of Alcohol and Drug Abuse Patient Records regulations: The Federal rules restrict any use of the information to criminally investigate or prosecute any alcohol or drug abuse patient.[facility] the event this information is protected by the Federal Confidentiality of Alcohol and Drug Abuse Patient Records regulations: The Federal rules restrict any use of the information to criminally investigate or prosecute any alcohol or drug abuse patient.[facility] Reason for Visit (unrecogniz ed section and content) Specialty Diagnoses / Procedures Referred By Joaquin hsieh Referred To Contact General Surgery Diagnoses Left inguinal hernia Procedures CONSULT TO GENERAL SURGERY NEW PATIENT VISIT LEVEL 5 Juanito Worley MD [address] [place] [address] Referral ID Status Reason Start Date Expiration Date Visits Requested Visits Authorized [id number] Pending Review PCP Requested Referral 07/24/2021 07/24/2022 1 1 Reason Comments Follow Up hernia surgery in [place] Reason Onset Date Comments Medicare Wellness Exam 5 month follow-up Immunizations 07/30/2022 Flu vaccination Reason Comments Orders Reason Comments F/U 6 months Reason Comments Medicare Wellness Exam Reason Comments F/U 6 months Care Teams (unrecognized sec tion and content) 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 Relationship Specialty Start Date End Date Juanito Worley MD [address], [place] [id number] PCP - General Internal Medicine 12/26/15 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 Relationship Specialty Start Date End Date Juanito Worley MD [address], [place] [id number] PCP - General Internal Medicine 12/26/15 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 [employer] [facility]. provides no warranty or guarantee of the accuracy or completeness of information in this document.
[2024-02-04] MEDS: Rabies Vaccine,Human Diploid 2.5 UNITS Vial IM (20:55)
[2024-02-04 20:59] VITALS: BP 127/84; PULSE 67; RESP 14; TEMP 36.1; O2SAT 97
--- OUTSIDE RECORDS SUMMARY | 2024-02-04 21:24 | XMS RPT_ITS | CCD ---
Author Name Unknown Address [address] [place] [address] Organization [facility] Care Team Providers Care Charge Account Authorizer Name Role Phone Juanito Worley MD Primary Care Provider [phone] JUANITO WORLEY Attending Unavailable JUANITO WORLEY Primary [...] 60 mm[Hg] Juanito Worley MD Work Phone: [facility] 01-28-2024 09:28-0500 Systolic blood pressure 126 mm[Hg] Juanito Worley MD Work Phone: [facility] 01-28-2024 08:58-0500 Body weight 81.65 kg Juanito Worley MD Work Phone: [facility] 01-28-2024 08:58-0500 Heart rate 68 /min Juanito Worley MD Work Phone: [facility] 01-28-2024 08:58-0500 SaO2% (BldA) [Mass fraction] 97 % Juanito Worley MD Work Phone: [facility] 07-30-2023 08:05-0400 Body height 172.7 cm Juanito Worley MD Work Phone: [facility] 07-30-2023 08:05-0400 Body weight 81.19 kg Juanito Worley MD Work Phone: [facility] 01-19-2023 10:02-0500 Diastolic blood pressure 58 mm[Hg] Juanito Worley MD Work Phone: [facility] 01-19-2023 10:02-0500 Systolic blood pressure 126 mm[Hg] Juanito Worley MD Work Phone: [facility] 01-19-2023 08:59-0500 Body temperature 97.3 [degF] Juanito Worley MD Work Phone: [facility] 01-19-2023 08:59-0500 Body weight 83.46 kg Juanito Worley MD Work Phone: [facility] 01-19-2023 08:59-0500 Heart rate 72 /min Juanito Worley MD Work Phone: [facility] 01-19-2023 08:59-0500 Respiratory rate 12 /min Juanito Worley MD Work Phone: [facility] 07-30-2022 08:20-0400 Body height 175.3 cm Juanito Worley MD Work Phone: [facility] 07-30-2022 08:20-0400 Body temperature 97 [degF] Juanito Worley MD Work Phone: [facility] 07-30-2022 08:20-0400 Body weight 82.1 kg Juanito Worley MD Work Phone: [facility] 07-30-2022 08:20-0400 Diastolic blood pressure 68 mm[Hg] Juanito Worley MD Work Phone: [facility] 07-30-2022 08:20-0400 Heart rate 72 /min Juanito Worley MD Work Phone: [facility] 07-30-2022 08:20-0400 Respiratory rate 16 /min Juanito Worley MD Work Phone: [facility] 07-30-2022 08:20-0400 Systolic blood pressure 122 mm[Hg] Juanito Worley MD Work Phone: [facility] 04-09-2022 10:44-0400 Body height 177.8 cm Adán Curran MD Work Phone: [facility] 04-09-2022 10:44-0400 Body temperature 97.81 [degF] Adán Curran MD Work Phone: [facility] 04-09-2022 10:44-0400 Body weight 78.02 kg Adán Curran MD Work Phone: [facility] 04-09-2022 10:44-0400 Diastolic blood pressure 56 mm[Hg] Adán Curran MD Work Phone: [facility] 04-09-2022 10:44-0400 Heart rate 87 /min Adán Curran MD Work Phone: [facility] 04-09-2022 10:44-0400 SaO2% (BldA) [Mass fraction] 96 % Adán Curran MD Work Phone: [facility] 04-09-2022 10:44-0400 Systolic blood pressure 112 mm[Hg] Adán Curran MD Work Phone: [facility] 03-19-2022 07:09-0400 Body height 177.8 cm Adán Curran MD Work Phone: [facility] 03-19-2022 07:09-0400 Body temperature 98.1 [degF] Adán Curran MD Work Phone: [facility] 03-19-2022 07:09-0400 Body weight 79.83 kg Adán Curran MD Work Phone: [facility] 03-19-2022 07:09-0400 Diastolic blood pressure 74 mm[Hg] Adán Curran MD Work Phone: [facility] 03-19-2022 07:09-0400 Heart rate 82 /min Adán Curran MD Work Phone: [facility] 03-19-2022 07:09-0400 SaO2% (BldA) [Mass fraction] 97 % Adán Curran MD Work Phone: [facility] 03-19-2022 07:09-0400 Systolic blood pressure 146 mm[Hg] Adán Curran MD Work Phone: [facility] Encounters Encounter Date Encounter Type Care Provider Facility Start: 01-28-2024 ambulatory JUANITO WORLEY Faci lity:[facility] Start: 01-28-2024 End: 01-28-2024 Patient encounter procedure Juanito Worley MD Work Phone: Internal Medicine [facility] Procedures Date Procedure Procedure Detail Performing Clinician Start: 01-19-2023 PFIZER-[id number] COVI D-19 BIVALENT BOOSTER VACCINE, AGE 12+ [...] Author Start: 07-22-2026 LIPID SCREEN LIPID SCREEN [facility] Start: 06-25-2026 Urine microalbumin profile [facility] Start: 07-27-2025 DIABETES SCREEN DIABETES SCREEN [facility] Start: 07-27-2025 Diabetes Screening Diabetes Screening [facility] Start: 02-21-2025 Colonoscopy COLONOSCOPY [facility] Start: 02-21-2025 COLORECTAL CANCER SCREENING COLORECTAL CANCER SCREENING [facility] Start: 01-27-2025 Annual PCP Team Chronic Disease Visit Annual PCP Team Chronic Disease Visit [facility] Start: 01-27-2025 BP Controlled (<130/80) BP Controlled (<130/80) [facility] Start: 01-23-2025 DIABETES SCREEN DIABETES SCREEN [facility] Start: 07-30-2024 ANNUAL PCP TEAM CHRONIC DISEASE VISIT ANNUAL PCP TEAM CHRONIC DISEASE VISIT [facility] Start: 07-30-2024 BP CONTROLLED (<130/80) BP CONTROLLED (<130/80) [facility] Start: 07-30-2024 End: 10-29-2024 CBC panel - Blood by Automated count CBC Lab Routine Essential hypertension Expected: 07/30/2024, Expires: 10/29/2024 [facility] Work Phone: Immunizations Immunization Date Immunization Notes Care Provider [facility] 01-24-2024 rabies vaccine, for intramuscular injection Juanito Worley MD Work Phone: [facility] 01-21-2024 rabies vaccine, for intramuscular injection Juanito Worley MD Work Phone: [facility] 01-19-2023 COVID-19 booster vaccine, age 12+ yr, bivalent ([employer]) Juanito Worley MD Work Phone: [facility] Work Phone: 07-30-2022 influenza, high-dose , quadrivalent vaccine (FLUZONE HIGH DOSE QUADRIVALENT) Juanito Worley MD Work Phone: [facility] Work Phone: 07-30-2022 influenza virus vacc ine, unspecified formulation Juanito Worley MD Work Phone: [facility] 09-11-2021 influenza, seasonal, injectable, preservative free Adán Curran MD Work Phone: [facility] Work Phone: 11-01-2020 influenza, high dose seasonal, preservative-free Adán Curran MD Work Phone: [facility] Work Phone: 01-11-2020 influenza, high dose seasonal, preservative-free Adán Curran MD Work Phone: [facility] 01-09-2019 influenza, high dose seasonal, preservative-free Adán Curran MD Work Phone: [facility] Work Phone: 01-03-2018 influenza, high dose seasonal, preservative-free Adán Curran MD Work Phone: [facility] 12-28-2016 influenza, high dose seasonal, preservative-free Adán Curran MD Work Phone: [facility] 06-25-2016 tetanus and diphther ia toxoids, adsorbed, preservative free, for adult use (5 Lf of tetanus toxoid and 2 Lf of diphtheria toxoid) Adán Curran MD Work Phone: [facility] 01-27-2016 pneumococcal conjuga te vaccine, 13 valent Adán Curran MD Work Phone: [facility] Work Phone: 12-26-2015 influenza, high dose seasonal, preservative-free Adán Curran MD Work Phone: [facility] 03-02-2015 zoster vaccine, live Adán Curran MD Work Phone: [facility] Work Phone: 10-23-2014 influenza, high dose seasonal, preservative-free Adán Curran MD Work Phone: [facility] 10-23-2014 zoster vaccine, live Adán Curran MD Work Phone: [facility] Work Phone: 10-24-2012 influenza virus vacc ine, unspecified formulation Adán Curran MD Work Phone: [facility] Work Phone: 09-10-2011 influenza virus vacc ine, unspecified formulation Adán Curran MD Work Phone: [facility] Work Phone: 09-10-2011 pneumococcal polysaccharide vaccine, 23 valent Adán Curran MD Work Phone: [facility] Work Phone: 10-13-2008 influenza virus vacc ine, unspecified formulation Adán Curran MD Work Phone: [facility] Work Phone: 07-08-2006 tetanus toxoid, redu casandra diphtheria toxoid, and acellular pertussis vaccine, adsorbed Adán Curran MD Work Phone: [facility] Work Phone: Payers Date Payer Category Payer Medicare AETNA MEDICARE A ETNA MEDICARE PPO [id number] 2021-Present [phone] [address] [place] [address] PPO [id number] 2021 Medicare AETNA MEDICARE A ETNA MEDICARE PPO [id number] 2021-Present [phone] [address] [place] [address] O [id number] 2021 Medicare [id number] Social History Date Type Detail Facility Start: 07[facility]30-2022 [facility] Work Phone: End: 11-29-1982 History of tobacco use Current smoker [facility] Work Phone: End: 11-29-1982 History of tobacco use Pipe Smoker [facility] Work Phone: Start: 03-19-2022 End: 01-28-2024 Alcohol intake Current non-drinker of alcohol (finding) [facility] Start: 05-09-2020 End: 01-16-2021 History SDOH Alcohol Frequency 1 [facility] Start: 05-09-2020 History SDOH Alcohol Std Drinks 98 [facility] Start: 05-09-2020 History SDOH Social Connections Phone 3 [facility] Start: 05-09-2020 End: 01-16-2021 History SDOH Social Connections Get Together 2 [facility] Start: 05-09-2020 History SDOH Physica l Activity DPW 7 [facility] Start: 05-09-2020 History SDOH Physica l Activity MPS 15 [facility] Start: 05-09-2020 History SDOH Financial 5 [facility] Start: 05-09-2020 Education 20 [facility] Start: 1945 Sex Assigned At Not on file C [facility] Start: 03-09-2022 End: 07-30-2022 Exposure to SARS-CoV-2 (event) Not sure [facility] Start: 07-30-2022 Tobacco use and exposure Karolina blackburn smokeless tobacco user [facility] Work Phone: Start: 05-09-2020 End: 01-28-2024 History of Social function [facility] Start: 05-09-2020 End: 01-28-2024 Social connection and isolation panel [facility] Do you belong to any clubs or organizations such as quaker groups, unions, fraternal or athletic groups, or school groups? Yes [facility] Are you now , , , , never or living with a partner? [facility] How often to you hav e a drink containing alcohol? Never [facility] How many standard dr inks containing alcohol do you have on a typical day? Patient refused [facility] Do you feel stress - tense, restless, nervous, or anxious, or unable to sleep at night because your mind is troubled all the time - these days [OSQ] Only a little [facility] (I/We) worried jerica er (my/our) food would run out before (I/we) got money to buy more. Never true [facility] Work Phone: In the past 12 month s, was there a time when you were not able to pay the mortgage or rent on time? No [facility] Medical Equipment Procedure Code Equipment Code Equipment Origin al Text Equipment Identifier Dates Mesh Surgipro La rge Polypropylene Surgical Nonabsorbable Plug Knitted - [id number] Start: 04-02-2022 Clinical Notes 06-30-2017 to 01-28-2024 Juanito Worley MD - 01/28/2024 9:23 AM ESTPatient InstructionsJuanito Worley MD - 07/30/2023 8:37 AM EDTJuanito Worley MD - 07/30/2023 8:26 AM EDTPatient Instructions Note Date & Type Note Facility 01-28-2024 Note HNO ID: [id number] Author: JUANITO WORLEY MD Service: ? Author Type: Physician Type: Progress Notes Filed: 01/28/2024 13:06 Note Text: This note was created using Neocleuster. Subjective Patient presents with: F/U 6 months [...] SERTRALINE 25 MG TABLET Juanito Worley MD [facility] 01-28-2024 History of Presen t illness Narrative This note was created using Driftrockriter. Subjective Patient presents with: F/U 6 months [...] Juanito Worley MD documented in this encounter [facility] 07-30-2023 Note HNO ID: [id number] Author: Juanito Worley MD Service: ? Author Type: Physician Type: Progress Notes Filed: 07/30/2023 9:13 AM Note Text: This note was created using Driftrockriter. Subjective Aly Nina is a 78 year [...] spouse and call back. Juanito Worley MD [facility] 07-30-2023 Note HNO ID: [id number] Author: Juanito Worley MD Service: ? Author Type: Physician Type: Progress Notes Filed: 07/30/2023 9:13 AM Note Text: Aly Nina is a 78 year old male here for a Medicare wellness visit. Health Risk Assessment In general, health is: Very good Concerns with balance:Not at all Concerns with teeth or dentures:Not at all Concerns with sexual function:Not at all [place] anxious, stressed, angry, irritable, lonely, isolated, or [...] Dr. Duncan Carlos, urology. Dr. Sandra, ophthalmology. [facility]. Medical/Family history review Reviewed and updated [...] and Shingrix at pharmacy - Depression screening [facility] 07-30-2023 Instructions Juanito Worley MD - 07/30/2023 8:41 AM EDT Get vaccinated for: Shingles. Flu. Covid. 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 Yes. Have you shared those records with your doctor? No and No. Please bring a copy to your next appointment or email to Fasting blood work soon. documented in this encounter [facility] 07-30-2023 History of Presen t illness Narrative This note was created using Neocleuster. Subjective Aly Nina is a 78 year [...] all Concerns with sexual function:Not at all [place] anxious, stressed, angry, irritable, lonely, isolated, or [...] Dr. Duncan Carlos, urology. Dr. Sandra, ophthalmology. [facility]. Medical/Family history review Reviewed and updated [...] - Depression screening documented in this encounter [facility] 01-19-2023 Instructions Juanito oWrley MD - 01/19/2023 9:36 AM EST Fasting blood work in June. documented in this encounter [facility] 01-19-2023 History of Presen t illness Narrative This note was created using Campus [employer]. Subjective Aly Nina is a 77 year [...] Juanito Worley MD documented in this encounter [facility] 01-11-2023 Miscellaneous Notes Formattin g of this note might be different from the original. Spoke with patient. Given message from provider's office. Patient verbalizes understanding. Mary Jane Salazar RN Patient is not due for routine labs Barb Hernandez APRN.TALAT Patient came to get lab work done before appointment on 01/19/[address]23. [address] labs if needed and call patient. documented in this encounter [facility] 07-30-2022 Instructions Juanito Worley MD - 07/30/2022 [...] review all the medicines you take, even [id number]-[id number] medicines. As you get older, the way [...] certain medical conditions. documented in this encounter [facility] 07-30-2022 History of Presen t illness Narrative Aly Nina is a 77 year old male here for a Medicare Subsequent Annual Wellness Visit Health Risk Assessment In general, health is: Good Concerns with tiredness, difficulties with sexual function, balance, teeth/dentures: Several days [place] anxious, stressed, angry, irritable, lonely, isolated, or [...] Worley MD This note was created using [employer]. Subjective Aly Nina is a 77 year old male. He felt well in general. He was having gait issues and working with [facility] for physical therapy. We reviewed his [...] Juanito Worley MD documented in this encounter [facility] 04-09-2022 History of Presen t illness Narrative FOLLOW UP VISIT - HERNIA NAME: Aly [facility] NO.: [id number] DATE OF SERVICE: 04/09/2022 : 1945 REFERRING [...] Adán Curran MD documented in this encounter [facility] 03-19-2022 History of Presen t illness Narrative [...] BCC (basal cell carcinoma of skin) 10/24/2012 [facility]. Bladder cancer (HCC) BPH with urinary [...] hernia repair with mesh - recurrent - [id number] Anticipated Anesthetic: MAC with local Patient weight: Blood pressure 146/74, pulse 82, temperature 36.7 C (98.1 F), height 177.8 cm (5' 10 ), weight 79.8 kg (176 lb), SpO2 97 %. BMI: Body mass index is 25.25 kg/m . Planned antibiotic: Ancef 2gm IVPB distribution designer to OR SCDs needed - Yes Return to Clinic: The patient is instructed to follow-up with me 1 week post operatively. Adán Curran MD documented in this encounter [facility] 03-19-2022 Instructions Adán Curran MD - 03/19/2022 7:38 AM EDT The following instructions are important for you related to your office visit today with the [facility]. INSTRUCTIONS FOR YOUR SURGICAL PROCEDURE [...] you should contact our office immediately @ [phone] and ask to be transferred to the General Surgery department. documented in this encounter [facility] 03-19-2022 Nurse Note REVIEW OF SYSTEMS: General: [...] 02/11/2015 Alyssa Tena documented in this encounter [facility] documented as of this encounter (statuses as of 07/30/2022) [facility] History of Past illness Narrative* Problem Noted [...] of this encounter (statuses as of 01/11/2023) [facility] History of Past illness Narrative* Problem Noted [...] of this encounter (statuses as of 01/19/2023) [facility] History of Past illness Narrative* Problem Noted [...] of this encounter (statuses as of 07/30/2023) [facility] History of Past illness Narrative* Problem Noted [...] of this encounter (statuses as of 01/28/2024) [facility] History of Past illness Narrative* Problem Noted [...] of this encounter (statuses as of 03/19/2022) [facility] History of Past illness Narrative* Problem Noted [...] of this encounter (statuses as of 04/09/2022) [facility] note* Diagnosis Left inguinal hernia Inguinal hernia without mention of obstruction or gangrene, unilateral or unspecified, (not specified as recurrent) documented in this encounter [facility] note* Diagnosis Left inguinal hernia- Primary Inguinal hernia without mention of obstruction or gangrene, unilateral or unspecified, (not specified as recurrent) documented in this encounter [facility] note* Diagnosis Medicare annual wellness visit, subsequent- Primary Routine general medical examination at a health care facility Essential hypertension Unspecified essential hypertension Impaired fasting blood sugar Impaired fasting glucose Hyperlipidemia, unspecified hyperlipidemia type Need for influenza vaccination Need for prophylactic vaccination and inoculation against influenza documented in this encounter [facility] note* Diagnosis Pain of right thigh- Primary Pain in limb Hyperlipidemia, unspecified hyperlipidemia type Essential hypertension Unspecified essential hypertension Spinal stenosis of lumbar region without neurogenic claudication Spinal stenosis, lumbar region, without neurogenic claudication Need for COVID-19 vaccine documented in this encounter [facility] note* Diagnosis Medicare annual wellness visit, subsequent- Primary Routine general medical examination at a [facility] facility Essential hypertension Unspecified essential hypertension Hyperlipidemia, unspecified hyperlipidemia type Relationship problems Relationship problems specific to childhood and adolescence documented in this encounter [facility] note* Diagnosis Essential hypertension- Primary Unspecified essential hypertension Impaired fasting blood sugar Impaired fasting glucose Elevated prostate specific antigen (PSA) Hyperlipidemia, unspecified hyperlipidemia type Mood disorder (HCC) Unspecified episodic mood disorder documented in this encounter [facility] Summary Purpose Family History No Family History Records FoundNo Family History Records FoundNo Family History Records Found Advance Directives No Advanced Directives Records FoundDocuments on File Type Date Recorded Patient Supervisor Patching Expl anation Advance Directive(s) 04/02/2022 12:03 PM Reason for Referral Specialty Diagnoses / Procedures Referred By Joaquin hsieh Referred To Contact Pain Management Diagnoses Spinal stenosis of lumbar region without neurogenic claudication Procedures CONSULT TO PAIN MGT Juanito Worley MD [address] [place] [address] Referral ID Status Reason Start Date Expiration Date Visits Requested Visits Authorized [id number] Ref Not Required PCP Requested Referral 01/19/2023 01/19/2024 1 1 Specialty Diagnoses / Procedures Referred By Joaquin hsieh Referred To Contact XR IMAGING Diagnoses Pain of right thigh Procedures XR FEMUR GENERAL 2V AP/LAT RIGHT RADIOLOGIC EXAMINATION FEMUR MINIMUM 2 VIEWS Juanito Worley MD [address] [place] [address] Xr Imaging Referral ID Status Reason Start Date Expiration Date V isits Requested Visits Authorized [id number] Closed Auto-Generate d Referral 01/19/2023 02/18/2024 1 1 Additional Source Comments (unrecognized sect ion and content) No Status Records FoundNo Status Records FoundNo Status Records Found INFORMATION SOURCE (unrecogn ized section and content) DATE CREATED AUTHOR AUTHOR'S ORGANIZ ATION 04/03/2022 [facility] DATE CREATED AUTHOR AUTHOR'S ORGANIZ ATION 01/30/2024 [facility] Source Comments (unrecognize d section and content) In the event this informatio n is protected by the Federal Confidentiality of Alcohol and Drug Abuse Patient Records regulations: The Federal rules restrict any use of the information to criminally investigate or prosecute any alcohol or drug abuse patient.[facility] the event this information is protected by the Federal Confidentiality of Alcohol and Drug Abuse Patient Records regulations: The Federal rules restrict any use of the information to criminally investigate or prosecute any alcohol or drug abuse patient.[facility] the event this information is protected by the Federal Confidentiality of Alcohol and Drug Abuse Patient Records regulations: The Federal rules restrict any use of the information to criminally investigate or prosecute any alcohol or drug abuse patient.[facility] the event this information is protected by the Federal Confidentiality of Alcohol and Drug Abuse Patient Records regulations: The Federal rules restrict any use of the information to criminally investigate or prosecute any alcohol or drug abuse patient.[facility] Center[facility] the event this information is protected by the Federal Confidentiality of Alcohol and Drug Abuse Patient Records regulations: The Federal rules restrict any use of the information to criminally investigate or prosecute any alcohol or drug abuse patient.[facility] Center[facility] the event this information is protected by the Federal Confidentiality of Alcohol and Drug Abuse Patient Records regulations: The Federal rules restrict any use of the information to criminally investigate or prosecute any alcohol or drug abuse patient.[facility] Center[facility] the event this information is protected by the Federal Confidentiality of Alcohol and Drug Abuse Patient Records regulations: The Federal rules restrict any use of the information to criminally investigate or prosecute any alcohol or drug abuse patient.[facility] Reason for Visit (unrecogniz ed section and content) Specialty Diagnoses / Procedures Referred By Joaquin hsieh Referred To Contact General Surgery Diagnoses Left inguinal hernia Procedures CONSULT TO GENERAL SURGERY NEW PATIENT VISIT LEVEL 5 Juanito Worley MD [address] [place] [address] Referral ID Status Reason Start Date Expiration Date Visits Requested Visits Authorized [id number] Pending Review PCP Requested Referral 07/24/2021 07/24/2022 1 1 Reason Comments Follow Up hernia surgery in [facility] Reason Onset Date Comments Medicare Wellness Exam 5 month follow-up Immunizations 07/30/2022 Flu vaccination Reason Comments Orders Reason Comments F/U 6 months Reason Comments Medicare Wellness Exam Reason Comments F/U 6 months Care Teams (unrecognized sec tion and content) Charge Account Authorizer Relationship Specialty Start Date End Date Juanito Worley MD [address] [place], [place] [phone] PCP - General Internal Medicine 12/26/15 Charge Account Authorizer Relationship Specialty Start Date End Date Juanito Worley MD [address] [place], [place] [phone] PCP - General Internal Medicine 12/26/15 Charge Account Authorizer Relationship Specialty Start Date End Date Juanito Worley MD [address] [place], [place] [id number] PCP - General Internal Medicine 12/26/15 Charge Account Authorizer Relationship Specialty Start Date End Date Juanito Worley MD [address] [place], [place] [id number] PCP - General Internal Medicine 12/26/15 Charge Account Authorizer Relationship Specialty Start Date End Date Juanito Worley MD [address] [place] [address] PCP - General Internal Medicine 12/26/15 FOR [...] BE BASED ON THE PRIMARY CLINICAL RECORDS. [employer] [facility]. provides no warranty or guarantee of the accuracy or completeness of information in this document.
== END 2024-02-04 21:20 | disposition home or self-care (01) ==
PROVIDERS: PCP Internal Medicine
DX: Z23 Encounter for immunization (principal)
CPT/HCPCS: 90675; 96372

== ENCOUNTER → 2024-07-14 | Outpatient (CLI) | payer MEDICARE, SELFPAY ==
--- NOTE | 2024-07-14 08:56 | CT_ITS ---
STUDY: CT PARANASAL SINUSES WITH CONTRAST REASON FOR EXAM: Male, 79 years old. Malignant neoplasm of maxillary sinus. One month history of a swelling of the upper lip and within the mouth. RADIATION DOSAGE (If Supplied By Facility): CTDIvol = ( 29.38 ) mGy, DLP = ( 576.84 ) mGycm TECHNIQUE: The patient was scanned in a multi-detector CT scanner. High resolution transaxial imaging was performed following the intravenous administration of IV 100ml ISOVUE 300. Sagittal and coronal images were reconstructed. Individualized dose optimization techniques were used for this CT. COMPARISON: None. FINDINGS: There is a 4.4 cm x 3.7 cm x 3.1 cm soft tissue mass in the roof of the mouth extending into the nasal cavity. This causes bony destruction of the roof of the mouth in the midline extending into the maxillary bone in the midline. FRONTAL SINUSES: Normal development and aeration of the bilateral frontal sinuses without mucosal inflammatory disease. ETHMOIDAL SINUSES: Mild degree of mucosal thickening of the ethmoid sinuses. MAXILLARY SINUSES: Partial opacification of the maxillary sinuses bilaterally. SPHENOIDAL SINUSES: Normal aeration of the bilateral sphenoid sinuses and there is no mucosal inflammatory disease. CT/Sinus/Facial Bone WITH Contras IMPRESSION: There is a 4.4 cm x 3.75 x 3.1 cm soft tissue mass in the width of the moderate extend into the nasal cavity is causing bony destruction of the roof of the mouth in the midline extending into the maxillary bone in the midline. Opacification of the maxillary sinuses bilaterally. Electronically Signed: Scott Cuba MD at 9:47 EDT ,
[2024-07-14 15:18] LABS: CREATININE FINGERSTICK < 1.0 mg/dL (0.70-1.30); EGFR FINGERSTICK > 60.0000 mL/min (>60)
== END | disposition home or self-care (01) ==
LOC: CT 08:56
PROVIDERS: PCP Internal Medicine; Referring Provider Otolaryngology; Visit Provider Otolaryngology
DX: Z01.812 Encounter for preprocedural laboratory examination (principal); C31.0 Malignant neoplasm of maxillary sinus
CPT/HCPCS: 70487; Q9967

== ENCOUNTER → 2024-07-17 | Outpatient (CLI) | payer MEDICARE, SELFPAY ==
--- NOTE | 2024-07-17 | NASAL_PTH ---
PATIENT: ALY LEMONS [facility] U#:[id number] AGE/SX: 79/M ROOM: RE07/17/[address]: Dr. Robert Parks MD : 1945 BED: DIS: 07/17/2024 SPEC #: [id number] RECD: 07/17/24 15:00 STATUS: ANNE RIOS #: [id number] JENNIFER: 07/17/24 00:[address]: Robert Parks DEPT: SURGICAL PATHOLOGY RECD BY: Bernie Garsia ENTERED: 07/18/24 07:06 SP TYPE: NASAL SPEC OTHR DR: Dr. Juanito Juarez MD Tissues: TISSUE SURGICALLY REMOVED Procedures: Surgery Specimen Level IV HEADER OPERATION: Permanent pathology PRE-OP DIAGNOSIS: Nasal mass TISSUE SUBMITTED: Nasal mass MICROSCOPIC DIAGNOSIS Nasal mass, biopsy: Squamous cell carcinoma. See comment. AMRIT/ 07/19/2024 COMMENT Immunohistochemistry ([id number]) supports the above diagnosis. Case has been reviewed in consultation with Dr. Bernardo who concurs with the above diagnosis. IDC:[id number] MICROSCOPIC DESCRIPTION Slides are reviewed. GROSS DESCRIPTION Received in fixative is one container labeled with the patient's name and designated Nasal mass. The specimen consists of a piece of lopez-brown soft tissue measuring 0.4 x 0.2 x 0.1cm. A small fragment of lopez -brown soft tissue is also noted measuring 0.1 cm in greatest dimension. The entire specimen is submitted in one cassette. 07/18/2024 TC:0 CPT:82871
--- NOTE | 2024-07-17 | IMM_PTH ---
PATIENT: ALY LEMONS LOC: [facility] U#:[id number] AGE/SX: 79/M ROOM: RE07/17/[address]: Dr. Robert Parks MD : 1945 BED: DIS: 07/17/2024 SPEC #: [id number] RECD: 07/19/24 10:49 STATUS: ANNE REQ #: [id number] JENNIFER: 07/17/24 00:[address]: Robert Parks DEPT: IMMUNOHISTOCHEMISTRY RECD BY: Pedro Luis Echevarria ENTERED: 07/19/24 10:50 SP TYPE: IMMUNO OTHR DR: Dr. Juanito Juarez MD Tissues: TISSUE SURGICALLY REMOVED Procedures: NAPSIN A (add) CK20 (add) CK5-6 (add) CK7 (add) KI-67 (add) P53 (add) TTF1 (add) Vimentin (add) 34BE12 (add) Pankeratin (initial) P40 (add) S-100 (add) PHYSICIAN & [address] [address] SPECIMEN INFORMATION: Tissue Source: Nasal mass Clinical Info: Nasal mass Specimen Number: [id number] CPT code: 72993,[id number] METHODOLOGY: Deparaffinized sections of prefer/formalin-fixed tissue or PAP/DQ stained slides are incubated with monoclonal/polyclonal antibodies/oligonucleotide probes. Localization is made via biotin free immunoperoxidase method. Appropriate controls are performed and reacted as expected. Results on target cell population are indicated in the following table: RESULTS: ANTIBODY / CLONE RESULT AE1-3 (AE1/AE3/PCK26) positive CK7 (OV-TL12/30) positive CK20 (KS20.8) negative Vimentin (V9) negative 34BE12 (34BE12) positive S-100 (4C4.9) negative TTF-1 (8G7G3/1) negative Napsin A (Rabbit Polyclonal) negative CK5-6 (D5 & 1684) positive P40 (BC28) positive P53 (DO-7) negative, null pattern Ki-67 (30-9) positive, 50% These tests were developed and their performance characteristics determined by [facility]. They may not have been cleared or approved by the U.[place]. Food and Drug Administration. The FDA has determined that such clearance or approval is not necessary. The above immunohistochemical/dualISH markers are ordered and reviewed by the Pathologist. INTERPRETATION: Nasal mass, biopsy: Squamous cell carcinoma. AM.mr 07/20/2024
== END | disposition home or self-care (01) ==
LOC: LABSPEC 15:03
PROVIDERS: PCP Internal Medicine; Referring Provider Otolaryngology; Visit Provider Otolaryngology
DX: C76.0 Malignant neoplasm of head, face and neck (principal)
CPT/HCPCS: 88305; 88341; 88342